=== PATIENT | male | born 1950 | race Caucasian/White ===

== ENCOUNTER 2017-09-03 11:32 | Inpatient (IN) | payer OTHER ==
[2017-09-03] VITALS (29 sets, daily range): BP systolic 44–127; BP diastolic 16–80; PULSE 54–105; TEMP 36.6–37.8; O2SAT 80–99; Ht 175.3 cm; Wt 107.6 kg
[~2017-09-03] VITALS: Ht 175.3 cm; Wt 107.6 kg
[2017-09-03] MEDS ORDERED: DILTIAZEM BOLUS / DRIP IV STA (13:25)
--- NOTE | 2017-09-03 13:30 | NUR ---
ID: Patient arrived to room 238-1. Patient on continuous bipap 16/, 45% with a rate of 20. Patient denies any SOB. Family at bedside. Dr. Wells at bedside with patient.
[2017-09-03] MEDS ORDERED: HEPARIN SOD 5000 UNIT/0.5 ML CARP SQ SCH (14:00)
[2017-09-03] MEDS ORDERED: PATIENT'S ALLERGY INFO NEEDS ENTERED SCH (14:00)
[2017-09-03] MEDS ORDERED: DILTIAZEM HCL INJ 125 MG in DEXTROSE 5% 100ML IV PRN (14:00)
[2017-09-03 14:19] LABS: BASO % 0.2 %; BASO ABS # 0.02 K/uL (0-0.2); EOS % 1.2 %; HEMATOCRIT 45.1 % (42-52); HEMOGLOBIN 13.8 g/dL (14.0-18.0); IG# 0.02 K/uL (0.00-0.02); LYMPH % 10.5 %; LYMPH ABS # 0.86 K/uL (1.2-3.4); MEAN CELL VOLUME 89.7 fL (80-100); MEAN CORPUSCULAR HEMOGLOBIN 27.4 pg (25-34); MEAN CORPUSCULAR HGB CONC 30.6 g/dl (32-36); MEAN PLATELET VOLUME 9.3 fL (7.4-10.4); MONO % 12.7 %; MONO ABS # 1.04 K/uL (0.11-0.59); NEUT % 75.2 %; NEUT ABS # 6.18 K/uL (1.4-6.5); PLATELET COUNT 197 K/uL (130-400); RED CELL DISTRIBUTION WIDTH CV 13.1 % (11.5-14.5); RED CELL DISTRIBUTION WIDTH SD 42.9 fL (36.4-46.3); WHITE BLOOD COUNT 8.22 K/uL (4.8-10.8)
[2017-09-03 14:27] LABS: PTT PATIENT 34.8 SECONDS (21.0-31.0)
--- NOTE | 2017-09-03 14:30 | NUR ---
A: Patient currently on 4L NC spo2 92%. Patient is sitting up in bed eating lunch. Will reapply bipap when patient is done eating.
[2017-09-03 14:37] LABS: ALBUMIN 2.9 gm/dl (3.4-5.0); CALCIUM 8.2 mg/dl (8.5-10.1); CREATININE 1.33 mg/dl (0.60-1.40); POTASSIUM 4.2 mmol/L (3.5-5.1)
[2017-09-03 14:48] LABS: TOTAL PROTEIN 6.2 gm/dl (6.4-8.2)
--- NOTE | 2017-09-03 15:05 | History and Physical ---
History & Physical Date & Time of Service: Sep 03, 2017 at 14:35 Chief Complaint: Atrial Flutter, Acute Hypoxic Respiratory Failure Primary Care Physician: Edward Tyler D.O. History of Present Illness Source: patient, family This patient is a 67-year-old male with a history of hypertension, obesity, polycythemia, who presents as a direct transfer from [facility] with new onset atrial flutter with RVR, acute on likely chronic hypercapnic and hypoxemic respiratory failure, and newly diagnosed systolic CHF. He reports he went to his PCP for his annual physical yesterday morning and his doctor noted a rapid heartbeat and called an ambulance for him. He was feeling weak at the time, but denied palpitations, lightheadedness, or chest pain. Upon arrival at [facility], he was in rapid atrial flutter with a 2-1 block and a heart rate of 145 bpm. He was bolused with IV Cardizem and placed on a Cardizem drip. He eventually spontaneously converted to normal sinus rhythm in which he remains. He recently had his outpatient dose of metoprolol lowered to 25 mg by mouth twice a day, therefore he was increased again to 50 mg by mouth twice a day upon admission. His echo showed an EF of 45%, with some global hypokinesis, but was otherwise normal. His initial chest x-ray was read as normal, but a repeat chest x-ray this morning showed developing signs of pulmonary vascular congestion and was consistent with acute CHF. He denies any significant weight gain, no worsening peripheral edema over his usual leg swelling. He remained hypoxic requiring 4 L nasal cannula. An ABG was obtained which showed pH 7.26/PA CO2 86/PaO2 40. He was placed on BiPAP this morning, and repeat ABG was almost exactly the same , except his PaO2 had increased to 70. He is a previous smoker, he is obese, and has a thick neck. There is suspicion for undiagnosed REMBERTO. He is also a previous heavy smoker and continues to smoke 1 cigarette a day-he also may have undiagnosed COPD. He was given 1 dose of Lasix IV 40 mg 1 and a Werner catheter was placed prior to transfer to [facility]. His family reports to me that the patient is not quite acting like himself and seems a little bit off which is likely due to his hypercapnia. Patient has no other complaints at this time. He was transferred here due to family request as his son and [id number] both work here. Past Medical/Surgical History PMH: Hypertension Polycythemia-has had several phlebotomies-does not know if he has been tested for hemochromatosis Obesity Current smoker Bursitis Osteoarthritis PSH: None Medications at home: Lisinopril 20 mg by mouth daily Hydrocodone as a 12.5 mg by mouth daily Metoprolol 25 mg by mouth twice a day Aspirin 81 mg by mouth daily Fish oil Family History Mom of an SD old age Dad in old age Brother with colon cancer Sister with ovarian cancer- Grandson with iron overload which has now resolved Social History Smoking Status: Current Every Day Smoker (1 cigarette per day, previously smoked less than one pack per day 15 years, quit at age 52) Alcohol Use: admits to being a binge drinker, will drink 6 beers or wine times per week, but currently has not had any alcohol in 4 weeks Drug Use: none Allergies Coded Allergies: Maple Tree (Verified Allergy, Unknown, unknown, 09/03/17) Review of Systems Constitutional: No fever, No chills Eyes: + discharge (a few weeks ago he had bilateral conjunctivitis which is now resolved), No problem reported ENT: No problem reported Respiratory: No shortness of breath Cardiovascular: No chest pain, No palpitations Abdomen: No pain, No nausea, No vomiting, No GI bleeding Musculoskeletal: + joint pain (aches and pains diffusely chronically) Genitourinary - Male: No problem reported Neurologic: No problem reported Psychiatric: No problem reported Endocrine: No problem reported Hematologic / Lymphatic: + problem reported (has been told he had iron overload ) Integumentary: No problem reported Allergic / Immunologic: No problem reported Physical Exam Vital Signs Date Time Temp Pulse Resp B/P (MAP) Pulse Ox O2 Delivery O2 Flow Rate FiO2 09/03/17 13:46 36.6 73 20 116/68 95 BiPAP 45 09/03/17 13:30 36.6 73 20 116/68 (84) 95 BiPAP 45 General Appearance: WD/WN, no apparent distress, + obese Head: normocephalic, atraumatic Eyes: normal inspection, PERRL, EOMI, sclerae normal ENT: hearing grossly normal, + pertinent finding (large tongue, airway patent, very obese and short, thick neck) Neck: supple, no adenopathy, no carotid bruits, trachea midline, + pertinent finding (cannot assess for JVD due to obesity) Respiratory/Chest: no respiratory distress, no accessory muscle use, + decreased breath sounds (diminished throughout, no wheezes or crackles) Cardiovascular: regular rate, rhythm (with occasional ectopy), no murmur, normal peripheral pulses, + pertinent finding (1+ pitting edema the legs to the knees bilaterally) Abdomen/GI: normal bowel sounds, non tender, soft (and obese), no organomegaly , no pulsatile mass Genitourinary - Male: + pertinent finding (Werner catheter in place draining clear yellow urine) Back: normal inspection Extremities/Musculoskelatal: no calf tenderness, + swelling (as above) Neurologic/Psych: no motor/sensory deficits, alert, normal mood/affect, oriented x 3 Skin: normal color, warm/dry, no rash Lymphatic: no adenopathy Diagnostics Laboratory Results Results Past 24 Hours Test 09/03/17 14:04 Range/Units White Blood Count 8.22 4.8-10.8 K/uL Red Blood Count 5.03 4.7-6.1 M/uL Hemoglobin 13.8 14.0-18.0 g/dL Hematocrit 45.1 42-52 % Mean Corpuscular Volume 89.7 80-100 fL Mean Corpuscular Hemoglobin 27.4 25-34 pg Mean Corpuscular Hemoglobin Concent 30.6 32-36 g/dl Platelet Count 197 130-400 K/uL Mean Platelet Volume 9.3 7.4-10.4 fL Neutrophils (%) (Auto) 75.2 % Lymphocytes (%) (Auto) 10.5 % Monocytes (%) (Auto) 12.7 % Eosinophils (%) (Auto) 1.2 % Basophils (%) (Auto) 0.2 % Neutrophils # (Auto) 6.18 1.4-6.5 K/uL Lymphocytes # (Auto) 0.86 1.2-3.4 K/uL Monocytes # (Auto) 1.04 0.11-0.59 K/uL Eosinophils # (Auto) 0.10 0-0.5 K/uL Basophils # (Auto) 0.02 0-0.2 K/uL RDW Standard Deviation 42.9 36.4-46.3 fL RDW Coefficient of Variation 13.1 11.5-14.5 % Immature Granulocyte % (Auto) 0.2 % Immature Granulocyte # (Auto) 0.02 0.00-0.02 K/uL Prothrombin Time 10.9 9.0-12.0 SECONDS Prothromb Time International Ratio 1.0 0.9-1.1 Activated Partial Thromboplast Time 34.8 21.0-31.0 SECONDS Partial Thromboplastin Ratio 1.3 Diagnostic Radiology Chest x-ray report reviewed from outside hospital-shows only vascular congestion Echo report from outside hospital reviewed and shows EF 45% with global hypokinesis EKG ECG done here shows atrial fib, rate 60s, no ischemic changes ECGs from previous facility were not sent over Impression Assessment and Plan This patient is a 67-year-old male with a history of hypertension, obesity, polycythemia, who presents as a direct transfer from [facility] with new onset atrial flutter with RVR, acute on likely chronic hypercapnic and hypoxemic respiratory failure, and newly diagnosed systolic CHF. He reports he went to his PCP for his annual physical yesterday morning and his doctor noted a rapid heartbeat and called an ambulance for him. He was feeling weak at the time, but denied palpitations, lightheadedness, or chest pain. Upon arrival at [facility], he was in rapid atrial flutter with a 2-1 block and a heart rate of 145 bpm. He was bolused with IV Cardizem and placed on a Cardizem drip. He eventually spontaneously converted to normal sinus rhythm in which he remains. He recently had his outpatient dose of metoprolol lowered to 25 mg by mouth twice a day, therefore he was increased again to 50 mg by mouth twice a day upon admission. His echo showed an EF of 45%, with some global hypokinesis, but was otherwise normal. His initial chest x-ray was read as normal, but a repeat chest x-ray this morning showed developing signs of pulmonary vascular congestion and was consistent with acute CHF. He denies any significant weight gain, no worsening peripheral edema over his usual leg swelling. He remained hypoxic requiring 4 L nasal cannula. An ABG was obtained which showed pH 7.26/PA CO2 86/PaO2 40. He was placed on BiPAP this morning, and repeat ABG was almost exactly the same , except his PaO2 had increased to 70. He is a previous smoker, he is obese, and has a thick neck. There is suspicion for undiagnosed REMBERTO. He is also a previous heavy smoker and continues to smoke 1 cigarette a day-he also may have undiagnosed COPD. He was given 1 dose of Lasix IV 40 mg 1 and a Werner catheter was placed prior to transfer to [facility]. His family reports to me that the patient is not quite acting like himself and seems a little bit off which is likely due to his hypercapnia. Patient has no other complaints at this time. He was transferred here due to family request as his son and [id number] both work here. New-onset atrial flutter with RVR-spontaneously converted into normal sinus rhythm after placed on IV Cardizem drip at [facility].Now back in rate controlled A-fib -Admit to telemetry unit -Wean off Cardizem drip now that he is on increased dose of by mouth metoprolol , dose given this morning prior to transfer -Continue metoprolol tartrate 50 mg by mouth twice a day -Consult cardiology for further recommendations -Continue full dose anticoagulation with Lovenox 1 make per cake subcutaneous every 12 for now, will need to go on either Coumadin or NOAC-we'll discuss with patient -Treatment of suspected REMBERTO as below Acute on likely chronic hypercapnic and hypoxemic respiratory failure/suspect undiagnosed COPD and REMBERTO/current smoker. Repeat ABG after being on BiPAP for 2 hours is not changed much except increase PaO2. -Continue BiPAP for now, repeat ABG stat -We'll definitely need BiPAP at nighttime and we'll get overnight oximetry with ABG the following morning within 48 hours and discharged on 500 for home BiPAP -Consult pulmonology as per family request-we'll definitely need follow-up with sleep medicine as an outpatient as well as formal PFTs -We'll order nebulizers for decreased breath sounds and hypoxemia -Counseled on smoking cessation HTN/Acute newly diagnosed systolic CHF-could be rate related to tachyarrhythmia , did have recent viral illness, could be viral cardiomyopathy, could be ischemic. He had a normal stress test greater than 5 years ago, but certainly has risk factors for CAD. ECHO with LVEF 45% at outside facility with global hypokinesis. Serial troponins negative at outside facility -Continue lisinopril, metoprolol at increased dose of 50 mg twice a day, continue aspirin -Was given Lasix 40 g IV 1 this morning-we'll reassess in the morning if he needs more -Follow PRP for renal function and electrolytes -Consult cardiology for further evaluation and recommendations-he may need an ischemic evaluation in the future Polycythemia-hemoglobin is 15 at outside hospital, has received multiple phlebotomies in the past, unclear etiology but could be secondary to smoking -Follow CBC Prophylaxis-Lovenox Disposition-to home when medically stable Full code but does not desire prolonged life support if prognosis is very poor Advanced Directives Existing Living Will: Yes Existing Power of Administrative Resources Associate: No Resuscitation Status FULL RESUSCITATION VTE Prophylaxis VTE Risk Assessment Done? Y/N: Yes Risk Level: Moderate Given or contraindicated: Enoxaparin (Lovenox)SQ Additional Copies To Edward Tyler D.O.
[2017-09-03] MEDS ORDERED: MAGNESIUM SULFATE 1GM / D5W 1 GM in PREMIXED IN D5W 100 ML IV ONE (15:15)
[2017-09-03] MEDS ORDERED: NURSING VERBAL MED ORDER ONE ×2 (15:30→19:00)
[2017-09-03] MEDS ORDERED: SODIUM CHLORIDE 0.9% 250ML 250 ML IV ONE (16:00)
[2017-09-03] MEDS ORDERED: GLUCOSE 40% GEL 15 GM TUBE PO PRN (16:30)
[2017-09-03] MEDS ORDERED: GLUCAGON FOR INJ 1 MG VIAL SQ PRN (16:30)
[2017-09-03] MEDS ORDERED: GLUCOSE 10 TABS/TUBE PO PRN (16:30)
[2017-09-03] MEDS ORDERED: ICU PROTOCOL FOR HYPERGLYCEMIA PRN (16:30)
[2017-09-03] MEDS ORDERED: DEXTROSE 50% 50 ML SYR IV PRN (16:30)
[2017-09-03] MEDS ORDERED: DOBUTamine / D5W 500 MG IV PRN (16:45)
[2017-09-03] MEDS ORDERED: OMEG10007 PO (16:49)
[2017-09-03] MEDS ORDERED: METO25TA56 PO (16:50)
[2017-09-03] MEDS ORDERED: CYAN500T13 PO (16:52)
[2017-09-03] MEDS ORDERED: ASPI81TA28 PO (16:52)
[2017-09-03] MEDS ORDERED: GARL1CAP PO (16:53)
[2017-09-03] MEDS ORDERED: LISI-725 PO (16:55)
[2017-09-03] MEDS ORDERED: HYDR12.55 PO (16:55)
--- NOTE | 2017-09-03 17:16 | Cardiology Consultation ---
Cardiology Consultation Date of Consultation: Sep 03, 2017. Requesting Physician: Dr. Wells Reason for Consultation: Atrial fibrillation, hypotension Pt evaluation today including: conversation w/ patient, conversation w/ family , physical exam, lab review, review of studies, review of inpatient medication list, conversation w/ attending History of Present Illness This is a 67-year-old gentleman who was transferred here today for treatment of newly diagnosed atrial fibrillation and hypoxia. He had evidently gone to his physician's office for a routine visit on 09/02/2017, was noted to have a rapid heart rate and was sent to the hospital. He was observed to be in atrial flutter with 2-1 AV conduction, he is treated with intravenous diltiazem and subsequently spontaneously converted to sinus rhythm. He had been on metoprolol 25 mg twice a day as an outpatient, this was increased to 50 mg twice a day on admission. He was subsequently transferred here for treatment. At the time of my evaluation he had been here for several hours, and although he came in sinus rhythm he had reverted to atrial fibrillation with a controlled heart rate. His blood pressure was somewhat low however he was conversational and he was on CPAP. He describes feeling symptoms of shortness of breath for several months, going to routine physicians office visit in being hospitalized because he was in atrial fibrillation. He was unaware of having atrial fibrillation, but he recalls having symptoms similar to it (which is a fluttering in his chest) in the past, although he is little bit vague about the duration. It sounds as though it was probably about 3 months, but intermittently. He is not very active but the only thing he noticed was he would get short of breath with activities for several months and that may have been progressive. He does not recall having peripheral edema, he does not have exertional chest discomfort. He is feeling a little bit lightheaded now (blood pressure is around 70 systolic) but he doesn't feel particularly bad and he doesn't feel a lot different than he did several hours ago. He is not having any chest discomfort now. He does not seem to have orthopnea or PND. Past Medical/Surgical History Atrial flutter Obesity Social History Smoking Status: Current Every Day Smoker (1 cigarette per day, previously smoked less than one pack per day 15 years, quit at age 52) History of Alcohol Use: Yes Review of Systems Constitutional: No fever, No weight loss, No weakness Respiratory: + shortness of breath, + dyspnea on exertion, No cough, No wheezing Cardiac: + palpitations, No chest pain, No orthopnea, No PND, No edema Abdomen: No pain, No nausea, No vomiting, No diarrhea, No GI bleeding Male : No urinary frequency, No nocturia more than once/night, No slowing stream, No sexual dysfunction Neurologic: No paralysis, No weakness, No numbness/tingling, No balance problems Heme: No abnormal bleeding/bruising, No clotting problems Endo: No fatigue Skin: No problem reported All Other Systems: Reviewed and Negative Allergies Coded Allergies: Maple Tree (Verified Allergy, Unknown, unknown, 09/03/17) Medications Current Inpatient Medications Medications (Trade) Dose Ordered Sig/Krissy Route Start Time Stop Time Status Last Admin Dose Admin Acetaminophen (Tylenol Tab) 650 mg Q4H PRN PO 09/03/17 13:30 10/03/17 13:29 Aspirin (Ecotrin Tab) 81 mg QAM PO 09/04/17 09:00 10/04/17 08:59 Levalbuterol (Xopenex 0.63 Mg/ 3 Ml Neb) 0.63 mg Q6R INH 09/03/17 15:00 10/03/17 14:59 Enoxaparin Sodium (Lovenox Inj) 111 mg Q12 SQ 09/03/17 21:00 10/03/17 20:59 Miscellaneous Information (Icu Protocol For Hyperglycemia) 1 ea PRN PRN N/A 09/03/17 16:30 09/05/17 16:29 Insulin Human Regular (novoLIN-R) SLIDING SCALE IF C... ACHS SC 09/03/17 21:00 10/03/17 20:59 Glucose (Glucose 40% Gel) 15-30 GRAMS 15 GRAMS... UD PRN PO 09/03/17 16:30 10/03/17 16:29 Glucose (Glucose Chew Tab) 4-8 Tablets 4 Tabl... UD PRN PO 09/03/17 16:30 10/03/17 16:29 Dextrose (Dextrose 50% 50ML Syringe) 25-50ML OF 50% DW IV FOR... UD PRN IV 09/03/17 16:30 10/03/17 16:29 Glucagon (Glucagon Inj) 1 mg UD PRN SQ 09/03/17 16:30 10/03/17 16:29 Heparin Sodium/ Dextrose 1 ea Q15M N/A 09/03/17 16:42 10/03/17 16:41 Dobutamine HCl 250 ml @ 0 mls/hr Q0M PRN IV 09/03/17 16:45 10/03/17 16:44 Physical Exam Vital Signs Past 12 Hours Date Time Temp Pulse Resp B/P (MAP) Pulse Ox O2 Delivery O2 Flow Rate FiO2 09/03/17 16:00 96 BiPAP 09/03/17 15:59 78/48 (58) 09/03/17 15:39 57 69/45 (53) 09/03/17 15:21 37.0 73 20 77/53 (61) 98 BiPAP 09/03/17 13:46 36.6 73 20 116/68 95 BiPAP 45 09/03/17 13:30 36.6 73 20 116/68 (84) 95 BiPAP 45 Constitutional: General Apperance: obese Level of Distress: moderate distress, acutely ill Psychiatric: Mental Status: active & alert Head: normocephalic Eyes: EOM: EOMI ENMT: normal ENT inspection, hearing grossly normal, pertinent finding (he is currently wearing CPAP) Neck: supple, no masses Lungs: Respiratory effort: good air movement Auscultation: no wheezing, no rales/crackles, deminished air movement Cardiovascular: Heart Auscultation: no murmurs, no rubs, no gallops, irregular rate rhythm Peripheral Pulses: Bruits: none appreciated Abdomen: Bowel Sounds: normal Inspection & Palpation: soft, no tenderness, guarding & rebound, no masses Musculoskeletal: normal strength (5/5 throughout) Extremities: no edema Neurologic: Cranial Nerves: grossly intact Sensation: grossly intact Data Laboratory Results: Last 24 Hours Test 09/03/17 14:04 09/03/17 16:27 09/03/17 16:33 White Blood Count 8.22 K/uL Red Blood Count 5.03 M/uL Hemoglobin 13.8 g/dL Hematocrit 45.1 % Mean Corpuscular Volume 89.7 fL Mean Corpuscular Hemoglobin 27.4 pg Mean Corpuscular Hemoglobin Concent 30.6 g/dl Platelet Count 197 K/uL Mean Platelet Volume 9.3 fL Neutrophils (%) (Auto) 75.2 % Lymphocytes (%) (Auto) 10.5 % Monocytes (%) (Auto) 12.7 % Eosinophils (%) (Auto) 1.2 % Basophils (%) (Auto) 0.2 % Neutrophils # (Auto) 6.18 K/uL Lymphocytes # (Auto) 0.86 K/uL Monocytes # (Auto) 1.04 K/uL Eosinophils # (Auto) 0.10 K/uL Basophils # (Auto) 0.02 K/uL RDW Standard Deviation 42.9 fL RDW Coefficient of Variation 13.1 % Immature Granulocyte % (Auto) 0.2 % Immature Granulocyte # (Auto) 0.02 K/uL Prothrombin Time 10.9 SECONDS Prothromb Time International Ratio 1.0 Activated Partial Thromboplast Time 34.8 SECONDS Partial Thromboplastin Ratio 1.3 Arterial Blood pH 7.31 Arterial Blood Partial Pressure CO2 73 mmHg Arterial Blood Partial Pressure O2 46 mm/Hg Arterial Blood HCO3 36 mmol/L Arterial Blood Oxygen Saturation 80.5 % Arterial Blood Base Excess 7.3 mEq/L Arterial Blood Gas Delivery 45% William Test POS Sodium Level 134 mmol/L Potassium Level 4.2 mmol/L Chloride Level 96 mmol/L Carbon Dioxide Level 36 mmol/L Anion Gap 3.0 mmol/L Blood Urea Nitrogen 22 mg/dl Creatinine 1.33 mg/dl Est Creatinine Clear Calc Drug Dose 65.4 ml/min Estimated GFR () 63.2 Estimated GFR (Non- 54.5 BUN/Creatinine Ratio 16.7 Random Glucose 108 mg/dl Calcium Level 8.2 mg/dl Magnesium Level 1.9 mg/dl Total Bilirubin 0.5 mg/dl Direct Bilirubin 0.2 mg/dl Aspartate Amino Transf (AST/SGOT) 21 U/L Alanine Aminotransferase (ALT/SGPT) 38 U/L Alkaline Phosphatase 62 U/L Troponin I 0.027 ng/ml Total Protein 6.2 gm/dl Albumin 2.9 gm/dl Thyroid Stimulating Hormone (TSH) 0.909 uIu/ml Imaging: An echocardiogram was done at the bedside and preliminary review shows a slightly low left ventricular ejection fraction, signs of an enlarged right heart and right ventricular pressure overload although exact pressures can't be evaluated. No pericardial effusion. EKG: His first electrocardiogram done on 09/03/2017 at 1415 shows atrial fibrillation with a controlled heart rate of 88 bpm and a rightward axis. No acute changes. A follow-up electrocardiogram done on 09/03/2017 at 1536 shows atrial fibrillation with a heart rate of 59 bpm and a rightward axis. There are no prior electrical cardiograms for comparison. Telemetry reviewed: Sinus rhythm until converting to atrial fibrillation this afternoon, where little change in heart rate. Assessment & Plan #1. Atrial fibrillation: He has recently diagnosed atrial fibrillation, although I don't think that is his primary problem at the moment. He may have a long history of it or maybe more recent, that remains to be seen. Right now his heart rate is well controlled on medications that were given before he arrived here and I would certainly not add any rate controlling medications. If anything his heart rate is little bit on the low side. If pressors are used that will increase his heart rate which may be beneficial. It is not low enough to consider temporary pacing. #2. Left ventricular dysfunction: He does seem to have some left ventricular dysfunction although it is not severe and he does not seem to have an acute coronary syndrome. It may be related to atrial fibrillation which may be longer standing than he realizes. At the moment I don't think this is a major part of his presentation and I don't believe he has severe left heart failure or pulmonary edema. Chest x-ray is pending. #3. Enlarged right heart: He may have pulmonary embolism, I believe a CAT scan will be done. He is on anticoagulation with Lovenox. We will follow along with you. Thank you for allowing me to participate in his care.
--- NOTE | 2017-09-03 17:21 | ECHOCARDIOGRAM REPORT ---
*NOTICE TO RECEIVING DEMOCRAT AGENCY This information is strictly Confidential and protected under [place] law. [place] law prohibits you from making any further disclosure of this information unless further disclosure is expressly permitted by the written consent of the person to whom it pertains or is authorized by law. A general authorization for the release of medical or other information is not sufficient for this purpose. Hospital accepts no responsibility if the information is made available to any other person, INCLUDING THE PATIENT. Interpretation Summary * Name: STEVE BAUTISTA Study Date: 09/03/2017 04:18 PM BP: 78/48 mmHg * Patient Location: C.2T\S\S238\S\1 HR: 65 * : 1950 (M/d/yy) Gender: Male Height: 69 in * Age: 67 yrs Ethnicity: RI Weight: 245 lb * Ordering Physician: Arvind Burrows * Referring Physician: UNKNOWN * Performed By: Giancarlo Laura RCS * * Reason For Study: A-FIB / HYPOTENSION * BSA: 2.3 m2 * -- Conclusions -- * Normal LV chamber size with moderate concentric LVH. * Mildly reduced LV systolic function with D shaped septum and flattened septal motion consistent with RV pressure/volume overload, EF 45-50%. * Severely dilated RV chamber size with severely reduced RV systolic function. * Akinesis of the RV free wall with preserved funciton of RV apical wall motion. * No significant valvular pathology. * TR jet inadequate to accurately calculate PASP. * Mild biatrial enlargement. Procedure Details * A complete two-dimensional transthoracic echocardiogram was performed (2D, M-mode, Doppler and color flow Doppler). * The study was technically difficult. * A contrast injection of Definity was performed to improve assessment of LV function. * Contrast was injected into an intravenous site in the left arm. * One vial of Definity ultrasound contrast was diluted in normal saline to a total volume of 10 ml. A total of '1' ml of solution was administered during imaging. * Lot # [id number] of Definity utilized for procedure. * Expiration date 1 NOV 03. * The attending nurse who injected the contrast agent was INGA FLORENCE RN. Left Ventricle * The left ventricle is normal in size. * There is moderate concentric left ventricular hypertrophy. * Left ventricular systolic function is mildly reduced. * Ejection Fraction = 45-50%. * Flattened septum is consistent with RV pressure/volume overload. Right Ventricle * The right ventricle is severely dilated. * The right ventricular systolic function is severely reduced. Atria * The left atrium is mildly dilated. * The right atrium is mildly dilated. * No ASD detected; PFO is not assessed. Mitral Valve * The mitral valve is normal in structure and function. Tricuspid Valve * The tricuspid valve is normal in structure and function. Aortic Valve * The aortic valve is not well visualized. * No hemodynamically significant valvular aortic stenosis. * There is no significant aortic regurgitation. Pulmonic Valve * The pulmonary valve is not well seen, but the Doppler examination is normal without significant regurgitation or stenosis. Great Vessels * The aortic root is normal size. Pericardium/Pleural * There is no pericardial effusion. * Prominent anterior pericardial fat pad. Right Ventricle * Akinesis of the RV free wall with preserved funciton of RV apical wall motion. Great Vessels * Normal inferior vena cava size and collapsability with sniff indicates a normal right atrial pressure of 3 mmHg MMode 2D Measurements and Calculations IVSd 1.8 cm IVSs 2.2 cm LVIDd 4.1 cm LVIDs 2.8 cm LVPWd 1.5 cm LVPWs 1.5 cm IVS/LVPW 1.2 FS 33.4 % EDV(Teich) 75.8 ml ESV(Teich) 28.4 ml EF(Teich) 62.6 % EDV(cubed) 70.7 ml ESV(cubed) 20.9 ml EF(cubed) 70.5 % % IVS thick 24.3 % % LVPW thick 4.3 % LV mass(C)d 280.0 grams LV mass(C)dI 124.4 grams/m\S\2 LV mass(C)s 214.7 grams LV mass(C)sI 95.4 grams/m\S\2 SV(Teich) 47.4 ml SI(Teich) 21.1 ml/m\S\2 SV(cubed) 49.9 ml SI(cubed) 22.1 ml/m\S\2 Ao root diam 3.3 cm Ao root area 8.4 cm\S\2 ACS 1.7 cm LA dimension 4.2 cm LA/Ao 1.3 LVOT diam 2.0 cm LVOT area 3.3 cm\S\2 LVAd ap4 36.5 cm\S\2 LVLd ap4 8.2 cm EDV(MOD-sp4) 140.7 ml EDV(sp4-el) 138.2 ml LVAs ap4 23.3 cm\S\2 LVLs ap4 7.0 cm ESV(MOD-sp4) 70.0 ml ESV(sp4-el) 66.4 ml EF(MOD-sp4) 50.3 % EF(sp4-el) 52.0 % LVAd ap2 49.5 cm\S\2 LVLd ap2 10.0 cm EDV(MOD-sp2) 203.0 ml EDV(sp2-el) 208.1 ml LVAs ap2 34.9 cm\S\2 LVLs ap2 8.8 cm ESV(MOD-sp2) 114.6 ml ESV(sp2-el) 117.3 ml EF(MOD-sp2) 43.5 % EF(sp2-el) 43.7 % LVLd %diff 18.3 % EDV(MOD-bp) 185.5 ml LVLs %diff 20.8 % ESV(MOD-bp) 99.7 ml EF(MOD-bp) 46.3 % SV(MOD-sp4) 70.8 ml SI(MOD-sp4) 31.4 ml/m\S\2 SV(MOD-sp2) 88.4 ml SI(MOD-sp2) 39.2 ml/m\S\2 SV(MOD-bp) 85.8 ml SI(MOD-bp) 38.1 ml/m\S\2 SV(sp4-el) 71.8 ml SI(sp4-el) 31.9 ml/m\S\2 SV(sp2-el) 90.9 ml SI(sp2-el) 40.3 ml/m\S\2 Doppler Measurements and Calculations MV E max lakesha 100.1 cm/sec MV P1/2t max lakesha 109.5 cm/sec MV P1/2t 93.6 msec MVA(P1/2t) 2.4 cm\S\2 MV dec slope 342.7 cm/sec\S\2 MV dec time 0.27 sec Ao V2 max 107.5 cm/sec Ao max PG 4.6 mmHg Ao max PG (full) 2.5 mmHg JOSIE(V,A) 2.2 cm\S\2 JOSIE(V,D) 2.2 cm\S\2 LV V1 max PG 2.1 mmHg LV V1 max 72.9 cm/sec PA V2 max 93.2 cm/sec PA max PG 3.5 mmHg TR max lakesha 239.2 cm/sec
[2017-09-03] MEDS ORDERED: OPTIRAY 320 IV PRN (17:30)
--- NOTE | 2017-09-03 17:30 | NUR ---
Patient transferred to room 103. quality assurance monitor applied - NSR. vss - see emr. had bowel movement - no diarrhea. oriented to person, place, time, situation, and event. afebrile. lungs clear/diminished on 4L NC. pina cath intact patent with concentrated yellow urine out put. dobutamine and heparin on hold for now per dr. jasmine. bed in lowest position call vanessa within reach. will continue to monitor.
--- NOTE | 2017-09-03 17:34 | DIAGNOSTIC IMAGING REPORT ---
(CHEST FOR PE) ANGIO WITH CLINICAL HISTORY: 67 years-old Male presenting with ^hypoxia. TECHNIQUE: Multidetector CT angiography of the chest was performed after administration of intravenous contrast. 3-D volumetric and/or maximum intensity projection (MIP) images were subsequently reconstructed for review. IV contrast: 115 mL of Optiray. A dose lowering technique was used consistent with the principles of ALARA (as low as reasonably achievable). COMPARISON: None. CT DOSE (mGy.cm): The estimated cumulative dose is 767.13 mGy.cm. FINDINGS: Cras topogram: Cardiac megaly Pulmonary vasculature: The study is adequate for assessment of the pulmonary vascular tree. No filling defect within the pulmonary arteries to suggest embolus. Poor opacification of subsegmental branches of the bilateral lower lobes felt to be incomplete opacification related to the timing of contrast. Main pulmonary artery is enlarged measuring 3.2 cm in transverse dimension. No flattening of the interventricular septum. No intracardiac intracardiac filling defect. Reflux of contrast into the hepatic veins suggesting elevated right heart pressure. Remaining chest: On soft tissue windows, few thyroid nodules may be present. Subcentimeter hilar and mediastinal lymph nodes possibly reactive. Atherosclerosis of the aorta. Coronary artery calcification. Top normal heart size. No pericardial effusion. Small right and trace left pleural effusions. Upper abdomen normal. On lung windows, dependent consolidation in the bilateral lower lobes, likely passive atelectasis. Mild bronchial wall thickening may be present. Few additional bandlike opacities likely atelectasis. Questionable trace emphysema at the apices. No other focal infiltrate. Large airways patent. On bone windows, degenerative changes of the spine. IMPRESSION: 1. No evidence of pulmonary embolus. 2. Enlargement of the main pulmonary artery and reflux of contrast into the hepatic veins suggests pulmonary hypertension and elevated right heart pressure. 3. Small right and trace left pleural effusions with suspected extensive passive atelectasis in the lower lobes. Electronically signed by: London Worthy M.D. 09/03/2017 5:33 PM Dictated Date/Time: 09/03/2017 5:24 PM
[2017-09-03] MEDS ORDERED: MILRINONE / D5W 20,000 MCG in PREMIXED IN D5W 100 ML IV PRN (18:07)
[2017-09-03] MEDS ORDERED: PHENYLEPHRINE HCL INJ 20 MG in DEXTROSE 5% 500ML 500 ML IV PRN (18:10)
[2017-09-03] MEDS ORDERED: HEPARIN 25,000 UNIT/500ML D5W 500 ML IV PRN (18:15)
--- NOTE | 2017-09-03 18:15 | NUR ---
patient taken to organic lab worker by organic lab worker team
--- NOTE | 2017-09-03 19:25 | NUR ---
Patient arrived to ICU 109 on monitor, accompanied by denture laboratory technician staff at this time. Patient was hooked up to bedside monitors and monitoring started. Vitals take. Height and weight taken and entered into bedside monitor for PA and CVP monitoring. Initial assessment completed and will be charted. See EMR for complete assessment and vital sign details. Patient placed on BiPAP 16/6 FIO2 50%. Bed in low position. 2 side rails up. Call vanessa within reach. Patient agrees to ring for assistance. Continue to monitor patient.
--- NOTE | 2017-09-03 19:30 | NUR ---
Sunita Soriano PA-C aware of Cardiac Output, Cardiac Index, SV, PA, and CVP pressures.
--- NOTE | 2017-09-03 19:55 | Critical Care Consultation ---
Critical Care Consultation Date of Consultation: Sep 03, 2017. Attending Physician: Sarah Wells MD Reason for Consultation: Pulmonary Htn with New Atrial Fibrillation History of Present Illness Alvarez Schreiber is a 67-year-old male who presented today as a direct transfer from [facility] where he had been diagnosed with the new onset atrial flutter with RVR with systolic CHF with acute on chronic hypercapnic and hypoxemic respiratory failure. Pt was seen by PCP on 09/02 and EKG revealed rapid irregular heart rate at which time an ambulance was called and pt was transported to [facility]. EKG [facility] demonstrated a rate 145 bpm with a 2-1 block, treated with IV Cardizem followed by infusion with spontaneous conversion to normal sinus rhythm. She does note recent change to metoprolol dosing. Patient underwent echo with an EF of 45% and global hypokinesis. Chest x-ray this morning demonstrated developing signs of vascular congestion. Patient remained on 4 L nasal cannula. Was treated with 1 dose of 40 mg of IV Lasix. ABG prior to transfer to [facility] demonstrated pH of 7.26 CO of 86 paO2 40%. After patient was transferred to [address] [place] [address] he was noted to again refer to atrial fibrillation with hypotension. Systolics were in the mid 70s and patient was transferred to the intensive care unit. He was bolused with 250 mL of NSS an EKG prior to transfer confirmed atrial fibrillation without ischemic changes. Patient underwent chest CT to rule out PE. Dr. Funez cardiology saw the patient and performed a stat echo had demonstrated right-sided heart failure with an ejection fraction of 40-45%. Patient was taken by Dr. Funez to cardiac laborer drying department for placement of [place] Sofia catheter. Dr. Funez findings are as follows: Summary: 1. Elevated left sided filling pressures/HFpEF (PAWP 20) 2. Moderate pulmonary hypertension -- suspect mixed etiology left sided heart disease and lung disease/REMBERTO (WHO group 2/3). 3. Right sided heart failure (RA 19) 4. Mildly reduced cardiac output. Upon examination, pt is sleeping comfortably and is without chest pain. Amiodarone is infusing at [] and pt has been placed on low dose heparin drip. Pulmonary Artery pressures have been running 50's/20's. Pt is currently back in NSR with SBP of 129. The patient denies weight loss, fever, dizziness, headache, muscle weakness, numbness, change in vision, sore throat, chest pain, palpitations, awareness of tachyarrythmias, leg swelling, shortness of breath, cough, nausea, vomiting, bloody stools, diarrhea, constipation, abdominal pain, other changes in urine or bowel habits. Past Medical/Surgical History Medical Problems: Acute respiratory failure with hypoxia and hypercapnia Atrial flutter Hypertension Polycythemia-has had several phlebotomies-does not know if he has been tested for hemochromatosis Obesity Tobacco Abuse Bursitis Osteoarthritis Surgical History: Cardiac Catheterization to place [place] Sofia catheter Social History Smoking Status: Current Every Day Smoker Alcohol Use: admits to being a binge drinker, will drink 6 beers or wine times per week, but currently has not had any alcohol in 4 weeks Drug Use: none Allergies Coded Allergies: Maple Tree (Verified Allergy, Unknown, unknown, 09/03/17) Home Medications Scheduled Aspirin (Aspirin Ec), PO DAILY Cyanocobalamin (Vitamin B12 500MCG), 500 MCG PO DAILY Fish Oil ([place]-3), 1 CAP PO DAILY Garlic (Garlic Oil 500), PO DAILY Hydrochlorothiazide (Hydrochlorothiazide), 1 TAB PO DAILY Lisinopril (Zestril), 20 MG PO DAILY Metoprolol Tartrate (Lopressor) (Lopressor), 1 TAB PO BID Current Inpatient Medications Current Inpatient Medications Medications (Trade) Dose Ordered Sig/Krissy Route Start Time Stop Time Status Last Admin Dose Admin Acetaminophen (Tylenol Tab) 650 mg Q4H PRN PO 09/03/17 13:30 10/03/17 13:29 Aspirin (Ecotrin Tab) 81 mg QAM PO 09/04/17 09:00 10/04/17 08:59 Levalbuterol (Xopenex 0.63 Mg/ 3 Ml Neb) 0.63 mg Q6R INH 09/03/17 15:00 10/03/17 14:59 Miscellaneous Information (Icu Protocol For Hyperglycemia) 1 ea PRN PRN N/A 09/03/17 16:30 09/05/17 16:29 Insulin Human Regular (novoLIN-R) SLIDING SCALE IF C... ACHS SC 09/03/17 21:00 10/03/17 20:59 Glucose (Glucose 40% Gel) 15-30 GRAMS 15 GRAMS... UD PRN PO 09/03/17 16:30 10/03/17 16:29 Glucose (Glucose Chew Tab) 4-8 Tablets 4 Tabl... UD PRN PO 09/03/17 16:30 10/03/17 16:29 Dextrose (Dextrose 50% 50ML Syringe) 25-50ML OF 50% DW IV FOR... UD PRN IV 09/03/17 16:30 10/03/17 16:29 Glucagon (Glucagon Inj) 1 mg UD PRN SQ 09/03/17 16:30 10/03/17 16:29 Ioversol (Optiray 320) 100 ml UD PRN IV 09/03/17 17:30 09/07/17 17:29 Milrinone Lactate/ Dextrose 45611 mcg/Prmx 100 ml @ 0 mls/hr Q0M PRN IV 09/03/17 18:07 10/03/17 18:06 Phenylephrine HCl 20 mg/Dextrose 502 ml @ 0 mls/hr Q0M PRN IV 09/03/17 18:10 10/03/17 18:09 Review of Systems 12 systems reviewed and negative other than previously mentioned in the HPI. Physical Exam Date Time Temp Pulse Resp B/P (MAP) Pulse Ox O2 Delivery O2 Flow Rate FiO2 09/03/17 19:02 60 16 142/70 (94) 98 Mask 4 09/03/17 17:45 80 18 104/61 (75) 95 Oxymask 5.0 09/03/17 17:30 37.1 84 20 105/65 (78) 90 Nasal Cannula 4.0 09/03/17 16:00 96 BiPAP 09/03/17 15:59 78/48 (58) 09/03/17 15:39 57 69/45 (53) 09/03/17 15:21 37.0 73 20 77/53 (61) 98 BiPAP 09/03/17 13:46 36.6 73 20 116/68 95 BiPAP 45 09/03/17 13:30 36.6 73 20 116/68 (84) 95 BiPAP 45 Vital Signs - as noted Laboratory Data - as noted Physical Exam: General - Sleeping Eyes - PERRL, EOMI No icterus, gaze conjugate ENT - Bipap mask in place Neck - Supple, trachea midline, no masses or lymphadenopathy, no JVD or bruits Lungs - No paradoxical chest wall movement, clear to auscultation bilaterally, no wheezes, rales, or rhonchi Heart - Reg rate and rhythm, No murmur, rubs, clicks, or gallops appreciated Abdomen - normoactive BS present, no bruits noted, tympanic to percussion, soft , nontender, moderately distended,obese Extremities - No edema, pedal pulses intact Neuro - easily awakened but drowsy; falls back asleep quickly Strength extremities equal and appropriate bilaterally Reflexes: normal and equal CN:PERRL, EOMI, no facial asymmetry, uvula/tongue midline Laboratory Results Last 24 Hours Test 09/03/17 14:04 09/03/17 17:51 09/03/17 18:55 White Blood Count 8.22 K/uL Red Blood Count 5.03 M/uL Hemoglobin 13.8 g/dL Hematocrit 45.1 % Mean Corpuscular Volume 89.7 fL Mean Corpuscular Hemoglobin 27.4 pg Mean Corpuscular Hemoglobin Concent 30.6 g/dl Platelet Count 197 K/uL Mean Platelet Volume 9.3 fL Neutrophils (%) (Auto) 75.2 % Lymphocytes (%) (Auto) 10.5 % Monocytes (%) (Auto) 12.7 % Eosinophils (%) (Auto) 1.2 % Basophils (%) (Auto) 0.2 % Neutrophils # (Auto) 6.18 K/uL Lymphocytes # (Auto) 0.86 K/uL Monocytes # (Auto) 1.04 K/uL Eosinophils # (Auto) 0.10 K/uL Basophils # (Auto) 0.02 K/uL RDW Standard Deviation 42.9 fL RDW Coefficient of Variation 13.1 % Immature Granulocyte % (Auto) 0.2 % Immature Granulocyte # (Auto) 0.02 K/uL Prothrombin Time 10.9 SECONDS Prothromb Time International Ratio 1.0 Activated Partial Thromboplast Time 34.8 SECONDS Partial Thromboplastin Ratio 1.3 Arterial Blood pH 7.31 Arterial Blood Partial Pressure CO2 73 mmHg Arterial Blood Partial Pressure O2 46 mm/Hg Arterial Blood HCO3 36 mmol/L Arterial Blood Oxygen Saturation 80.5 % Arterial Blood Base Excess 7.3 mEq/L Arterial Blood Gas Delivery 45% William Test POS Sodium Level 134 mmol/L Potassium Level 4.2 mmol/L Chloride Level 96 mmol/L Carbon Dioxide Level 36 mmol/L Anion Gap 3.0 mmol/L Blood Urea Nitrogen 22 mg/dl Creatinine 1.33 mg/dl Est Creatinine Clear Calc Drug Dose 65.4 ml/min Estimated GFR () 63.2 Estimated GFR (Non- 54.5 BUN/Creatinine Ratio 16.7 Random Glucose 108 mg/dl Calcium Level 8.2 mg/dl Magnesium Level 1.9 mg/dl Total Bilirubin 0.5 mg/dl Direct Bilirubin 0.2 mg/dl Aspartate Amino Transf (AST/SGOT) 21 U/L Alanine Aminotransferase (ALT/SGPT) 38 U/L Alkaline Phosphatase 62 U/L Troponin I 0.027 ng/ml 0.032 ng/ml Total Protein 6.2 gm/dl Albumin 2.9 gm/dl Thyroid Stimulating Hormone (TSH) 0.909 uIu/ml Lactic Acid Level 1.0 mmol/L Pro-B-Type Natriuretic Peptide 1330 pg/ml Bedside Blood Gas pH (LAB) 7.24 Bedside Blood Gas pCO2 (LAB) 93 mmHg Bedside Blood Gas pO2 (LAB) 42 mmHg Bedside Blood Gas HCO3 (LAB) 40 meq/L Bedside Blood Gas Total CO2 > 40 mEq/l Bedside Blood Gas Base Excess (LAB) 12.0 meq/L Bedside Blood Gas O2 Saturation 65.0 % Diagnostic Results (CHEST FOR PE) ANGIO WITH CLINICAL HISTORY: 67 years-old Male presenting with ^hypoxia. TECHNIQUE: Multidetector CT angiography of the chest was performed after administration of intravenous contrast. 3-D volumetric and/or maximum intensity projection (MIP) images were subsequently reconstructed for review. IV contrast: 115 mL of Optiray. A dose lowering technique was used consistent with the principles of ALARA (as low as reasonably achievable). COMPARISON: None. CT DOSE (mGy.cm): The estimated cumulative dose is 767.13 mGy.cm. FINDINGS: Valve Liner Rubber topogram: Cardiac megaly Pulmonary vasculature: The study is adequate for assessment of the pulmonary vascular tree. No filling defect within the pulmonary arteries to suggest embolus. Poor opacification of subsegmental branches of the bilateral lower lobes felt to be incomplete opacification related to the timing of contrast. Main pulmonary artery is enlarged measuring 3.2 cm in transverse dimension. No flattening of the interventricular septum. No intracardiac intracardiac filling defect. Reflux of contrast into the hepatic veins suggesting elevated right heart pressure. Remaining chest: On soft tissue windows, few thyroid nodules may be present. Subcentimeter hilar and mediastinal lymph nodes possibly reactive. Atherosclerosis of the aorta. Coronary artery calcification. Top normal heart size. No pericardial effusion. Small right and trace left pleural effusions. Upper abdomen normal. On lung windows, dependent consolidation in the bilateral lower lobes, likely passive atelectasis. Mild bronchial wall thickening may be present. Few additional bandlike opacities likely atelectasis. Questionable trace emphysema at the apices. No other focal infiltrate. Large airways patent. On bone windows, degenerative changes of the spine. IMPRESSION: 1. No evidence of pulmonary embolus. 2. Enlargement of the main pulmonary artery and reflux of contrast into the hepatic veins suggests pulmonary hypertension and elevated right heart pressure. 3. Small right and trace left pleural effusions with suspected extensive passive atelectasis in the lower lobes. Electronically signed by: London Worthy M.D. 09/03/2017 5:33 PM Dictated Date/Time: 09/03/2017 5:24 PM VENOUS DOPPLER LWR EXT BILA CLINICAL HISTORY: 67 years-old Male presenting with hypoxia. TECHNIQUE: Real-time grayscale and color and spectral Doppler ultrasound imaging of the veins of the bilateral lower extremities was performed. Compression and augmentation were also utilized. COMPARISON: None. FINDINGS: Right: Common femoral vein: Patent. Greater saphenous vein: Patent. Deep femoral vein: Patent. Femoral vein: Patent. Popliteal vein: Patent. Calf veins: Patent. Left: Common femoral vein: Patent. Greater saphenous vein: Patent. Deep femoral vein: Patent. Femoral vein: Patent. Popliteal vein: Patent. Calf veins: Patent. Other: 3 cm hypoechoic mass centered in the superficial soft tissues of the proximal left lateral calf noted. No demonstrable internal vascularity on color Doppler. IMPRESSION: 1. No evidence of deep venous thrombosis. 2. Hypoechoic mass in the superficial soft tissues of the proximal left lateral calf. No demonstrable color Doppler flow. This could suggest an avascular collection such as a hematoma or a poorly vascularized lesion. Electronically signed by: London Worthy M.D. 09/03/2017 9:53 PM Dictated Date/Time: 09/03/2017 9:52 PM CHEST ONE VIEW PORTABLE CLINICAL HISTORY: 67 years-old Male presenting with Hypoxia, hypotension. TECHNIQUE: Portable upright AP view of the chest was obtained. COMPARISON: CTA performed earlier the same day. FINDINGS: Interval placement of a right internal jugular central venous catheter which terminates at the superior cavoatrial junction. Cardiac silhouette enlarged. Pulmonary vasculature enlarged. Lungs essentially clear. No large effusion or pneumothorax. Osseous structures normal. Upper abdomen normal. IMPRESSION: 1. Right IJ central venous catheter terminates at the superior cavoatrial junction. No pneumothorax. 2. Cardiomegaly with volume overload. Electronically signed by: London Worthy M.D. 09/03/2017 10:13 PM Dictated Date/Time: 09/03/2017 10:11 PM Assessment & Plan (1) Pulmonary hypertension (2) Atrial flutter (3) Acute respiratory failure with hypoxia and hypercapnia PLAN: Neuro: * Neuro checks per protocol * Tylenol as needed Resp: * Acute on chronic hypercapnic hypoxemic respiratory failure * Bipap at this time 28/01 * Pulmonary Consult placed: Pulmonary HTN (Mixed Group 2/3) * Diuresis as tolerated, Avoid A. Fib * [place] Sofia Catheter in place monitoring cardiac/pulmonary pressures * Possible REMBERTO: continue BiPap overnight * Sleep medicine on D/C CV: * New Onset A. Fib/flutter with RVR and hypotension * Amiodarone bolus and infusion * Heparin infusion: low dose no bolus * CHF * Diuresis as tolerated * 1200mL fluid restriction * Monitor Respiratory status * Cardiology Consulted Fluids/Renal: * Cr: 1.33 (Unknown baseline) * Minimal fluid resuscitation at this time secondary to new heart failure * Werner in place, diuresis as tolerated * PRP in AM ID: Trend Fever curve, No leukocytosis GI/Nutrition: * May resume diet * Albumin: 2.9 * LFTs WNL Heme: * Heparin infusion: monitor Coags per protocol * Hx of Polycythemia-requiring multiple phlebotomies * Question of Hematoma versus lesion on lower extremity dopplers: Follow up with PCP on discharge Endocrine: Accu-Checks per protocol, started insulin infusion for 2 blood sugars greater than 180 CCT: 45 Minutes; This time is exclusive of all separately billable procedures. Thank you for involving us in the care of this patient. Please refer to Dr. Jens Rois's addendum for further recommendations. I have personally evaluated and examined this patient. I agree with assessment and plan of Tyler Soriano PA-C. Discussed patient at bedside with Dr. Pitts who is interpreting echo cardiogram, Dr. Burrows, as well as Dr. Funez who performed right heart cath. Holding off diuresis at this point given recent contrast load for CT scan to rule out venous thromboembolic disease
[2017-09-03] MEDS: LEVALBUTEROL 0.63MG/3 ML NEB INH SCH (20:13)
--- NOTE | 2017-09-03 20:24 | NUR ---
Patient has visitors at bedside.
--- NOTE | 2017-09-03 20:39 | Progress Note ---
Progress Note Date of Service Sep 03, 2017. Progress Note A couple of hours after admission, I was called by the RN for report of patient being back in atrial fibrillation and was now hypotensive with a systolic blood pressure in the 70s. He was bolused with 250 ML's of normal saline and EKG was obtained which confirmed atrial fibrillation but no ischemic changes. I contacted the sales support associate on-call who came to see the patient and we decided that he should be moved to the intensive care unit as he was probably going to need vasopressors. Discussed the case with the acquisition professional as well. He had a CT of the chest which was negative for PE but did show significant atelectasis and some pulmonary edema. He had a stat echo which showed right- sided heart failure, LVEF of 40-45%. He ended up leading to the [facility] to have a [place] catheter placed. I spent another 30 minutes dealing with his critical issues and discussing the case with multiple specialists involved.
--- NOTE | 2017-09-03 20:44 | Cardiac Catheterization ---
Procedure Note Procedure Date Sep 03, 2017. Pre-Procedure Diagnosis Cardiothoracic Symptom AUC Score 7 Post-Procedure Diagnosis Elevated Intracardiac Pressures Procedure(s) Performed Right Heart Cath Flare Worker Armin Agriculture Extension Specialist(s) Mariano Estimated Blood Loss Medication(s) Lidocaine 1% Summary of Findings Patient with hypotension today in the setting of new AF with RVR and increased AV mabel agents. Echo showed dilated RV with RV dysfunction. CTA negative for PE but signs suggestive of PH. RHC obtained to assess pulmonary pressures, intracardiac filling pressures and cardiac output. Procedure: - Local sedation with lidocaine - Ultrasound guided access of right IJ with 7Fr sheath - [place] catheter navigated to PA under fluoroscopic guidance. - Catheter sutured in place prior to transfer to ICU. RA - 19 RV - 57/20 PA - 56/20 (36) PAWP - 20 PaSat 65% AoSat 99% Mary CO/CI 4.4/2.0 TPG 16 PVR 3.6 wood unit Summary: 1. Elevated left sided filling pressures/HFpEF (PAWP 20) 2. Moderate pulmonary hypertension -- suspect mixed etiology left sided heart disease and lung disease/REMBERTO (WHO group 2/3). 3. Right sided heart failure (RA 19) 4. Mildly reduced cardiac output. Recommendations: -- Diuresis as BP allows -- Stable systemic BPs - hold of on inotropes for now -- With diastolic heart failure/PH/RV failure suspect pt tolerates AF+RVR poorly and recommend consideration of rhythm control strategy. Hemodynamics Rest Ao: -- Final Ao: -- LV: -- Recommendations Medical therapy and/or Counseling Specimens None Radiation Exposure (mGy) 202 Contrast (mls) none Fluids (cc crystalloids) none Drains none Anesthesia moderate Procedural Complication(s) None Disposition ICU ACC Data Cardiac Status Clinical evaluation leading to the procedure CAD Presntation: Sx unlikely to be ischemic Closure Device Percutaneous Entry Location: Right IJ Closure Device: none - manual hold
[2017-09-03] MEDS: INSULIN HUMAN REGULAR SC SCH (21:00)
[2017-09-03] MEDS ORDERED: METOPROLOL TARTRATE 50 MG TAB PO SCH (21:00)
[2017-09-03] MEDS ORDERED: ENOXAPARIN 1 MG/KG SQ SCH (21:00)
[2017-09-03] MEDS ORDERED: ENOXAPARIN 120 MG/0.8 ML SYR SQ SCH (21:00)
--- NOTE | 2017-09-03 21:00 | NUR ---
agricultural technician in patient room completing lower extremity ultrasound. Family remains at bedside. Cardiovascular pressure monitoring continues. Continue to monitor patient.
--- NOTE | 2017-09-03 21:50 | NUR ---
Notified Sunita Soriano PA-C that patient is currently ordered an NPO diet and would like something to eat. Physician wet process assistant head miller verbalized that patient is allowed to have a diet. Low sodium diet with an 1800 ml fluid restriction to be ordered. Continue to monitor patient.
--- NOTE | 2017-09-03 21:55 | DIAGNOSTIC IMAGING REPORT ---
VENOUS DOPPLER LWR EXT BILA CLINICAL HISTORY: 67 years-old Male presenting with hypoxia. TECHNIQUE: Real-time grayscale and color and spectral Doppler ultrasound imaging of the veins of the bilateral lower extremities was performed. Compression and augmentation were also utilized. COMPARISON: None. FINDINGS: Right: Common femoral vein: Patent. Greater saphenous vein: Patent. Deep femoral vein: Patent. Femoral vein: Patent. Popliteal vein: Patent. Calf veins: Patent. Left: Common femoral vein: Patent. Greater saphenous vein: Patent. Deep femoral vein: Patent. Femoral vein: Patent. Popliteal vein: Patent. Calf veins: Patent. Other: 3 cm hypoechoic mass centered in the superficial soft tissues of the proximal left lateral calf noted. No demonstrable internal vascularity on color Doppler. IMPRESSION: 1. No evidence of deep venous thrombosis. 2. Hypoechoic mass in the superficial soft tissues of the proximal left lateral calf. No demonstrable color Doppler flow. This could suggest an avascular collection such as a hematoma or a poorly vascularized lesion. Electronically signed by: London Worthy M.D. 09/03/2017 9:53 PM Dictated Date/Time: 09/03/2017 9:52 PM
--- NOTE | 2017-09-03 22:05 | NUR ---
x-ray in room to do chest x-ray
--- NOTE | 2017-09-03 22:06 | NUR ---
Patient taken off of BiPAP per his request and put on Oxymask @ 5 lpm. Patient tolerating well.
--- NOTE | 2017-09-03 22:14 | DIAGNOSTIC IMAGING REPORT ---
CHEST ONE VIEW PORTABLE CLINICAL HISTORY: 67 years-old Male presenting with Hypoxia, hypotension. TECHNIQUE: Portable upright AP view of the chest was obtained. COMPARISON: CTA performed earlier the same day. FINDINGS: Interval placement of a right internal jugular central venous catheter which terminates at the superior cavoatrial junction. Cardiac silhouette enlarged. Pulmonary vasculature enlarged. Lungs essentially clear. No large effusion or pneumothorax. Osseous structures normal. Upper abdomen normal. IMPRESSION: 1. Right IJ central venous catheter terminates at the superior cavoatrial junction. No pneumothorax. 2. Cardiomegaly with volume overload. Electronically signed by: London Worthy M.D. 09/03/2017 10:13 PM Dictated Date/Time: 09/03/2017 10:11 PM
--- NOTE | 2017-09-03 22:15 | NUR ---
Patients frances arrived to unit and patient is currently eating at this time. Patient adjust bed on his own and it has been difficult with keeping PA and CVP line leveled. Will continue to monitor patient.
--- NOTE | 2017-09-03 22:35 | NUR ---
Sunita Soriano aware of Cardiac Output, Cardiac Index, SV, PA, and CVP pressures.
--- NOTE | 2017-09-03 23:04 | NUR ---
Patient sleeping at this time. Cardiac monitoring and Invasive pressure monitoring continues at this time. Patient placed back on BiPAP. Continue to monitor patient.
[2017-09-03] MEDS ORDERED: AMIODARONE IV BOLUS / DRIP IV STA (23:28)
[2017-09-03] MEDS ORDERED: HEPARIN IV LOW DOSE NO BOLUS STA (23:28)
[2017-09-03] MEDS ORDERED: AMIODARONE 360MG / 200ML D5W ONE (23:29)
[2017-09-03] MEDS ORDERED: AMIODARONE 150MG / 100ML D5W ONE (23:29)
[2017-09-03] MEDS ORDERED: AMIODARONE / D5W 100 ML IV SCH (23:45)
--- NOTE | 2017-09-03 23:48 | NUR ---
Amiodarone bolus given Amiodarone gtt started Heparin gtt started at 20 ml/hr or 1,000 units/hour
[2017-09-03] MEDS: HEPARIN 25,000 UNIT/500ML D5W 500 ML IV PRN (23:57)
[2017-09-04] VITALS (46 sets, daily range): BP systolic 44–145; BP diastolic 8–87; PULSE 45–131; TEMP 37–37.7; O2SAT 90–100
[2017-09-04] MEDS ORDERED: AMIODARONE / D5W 200 ML IV SCH
[2017-09-04] MEDS: ACETAMINOPHEN 325 MG TAB PO PRN (00:09)
--- NOTE | 2017-09-04 00:10 | NUR ---
Sunita Soriano aware of Cardiac Output, Cardiac Index, SV, PA, and CVP pressures.
[2017-09-04] MEDS: LEVALBUTEROL 0.63MG/3 ML NEB INH SCH ×4 (01:43→19:51)
--- NOTE | 2017-09-04 02:00 | NUR ---
Patient sleeping at this time. Cardiac monitoring and Invasive pressure monitoring continues at this time. Patient placed back on BiPAP. Continue to monitor patient.
--- NOTE | 2017-09-04 04:27 | NUR ---
Patient noted to be increasingly confused. Patient is taking hospital gown off and pulling at tubes and wires. Patient reoriented, but continues to pull at monitoring wires. Sunita Soriano PA-C aware and ABG to be drawn early. Patient continues to be on BiPAP with O2 saturations in the upper 90's. Continue to monitor patient.
--- NOTE | 2017-09-04 04:55 | NUR ---
Respiratory therapy in patient room and ABG was drawn. Sunita Soriano PA-C made aware of ABG results. Continue to monitor patient.
--- NOTE | 2017-09-04 05:00 | NUR ---
IPAP increased to 20 by Respiratory Therapist. EPAP remains the same at 6
[2017-09-04] MEDS: AMIODARONE / D5W 200 ML IV SCH ×2 (05:13→17:04)
--- NOTE | 2017-09-04 05:42 | NUR ---
Am, marcos, skin, oral and cath care completed at this time. Gown and Linen changed. CHG bath complete.
[2017-09-04 05:48] LABS: BASO % 0.1 %; BASO ABS # 0.01 K/uL (0-0.2); EOS % 0.2 %; EOS ABS # 0.02 K/uL (0-0.5); HEMATOCRIT 48.3 % (42-52); HEMOGLOBIN 14.3 g/dL (14.0-18.0); IG# 0.01 K/uL (0.00-0.02); LYMPH % 6.1 %; LYMPH ABS # 0.52 K/uL (1.2-3.4); MEAN CELL VOLUME 90.8 fL (80-100); MEAN CORPUSCULAR HEMOGLOBIN 26.9 pg (25-34); MEAN CORPUSCULAR HGB CONC 29.6 g/dl (32-36); MEAN PLATELET VOLUME 9.3 fL (7.4-10.4); MONO % 10.6 %; NEUT % 82.9 %; NEUT ABS # 7.02 K/uL (1.4-6.5); PLATELET COUNT 157 K/uL (130-400); RED CELL DISTRIBUTION WIDTH CV 13.1 % (11.5-14.5); RED CELL DISTRIBUTION WIDTH SD 43.6 fL (36.4-46.3); WHITE BLOOD COUNT 8.48 K/uL (4.8-10.8)
[2017-09-04 05:58] LABS: PTT PATIENT 43.6 SECONDS (21.0-31.0)
[2017-09-04] MEDS ORDERED: HEPARIN IV BOLUS 3,000 UNIT in SYRINGE 0 ML IV ONE (06:15)
[2017-09-04 06:22] LABS: CALCIUM 8.6 mg/dl (8.5-10.1); CREATININE 1.66 mg/dl (0.60-1.40); PHOSPHORUS 4.4 mg/dl (2.5-4.9); POTASSIUM 4.1 mmol/L (3.5-5.1)
--- NOTE | 2017-09-04 08:00 | NUR ---
Pt removed from bipap mask and placed to nasal cannula 6L for breakfast. Pt is alert and oriented x4 but seems forgetful at times. VS stable. Right swan line in place and secured by tegaderm dressing. Heparin drip at 22m/hr (1100 units/hr) with Amiodarone at 0.5mg/hr. Repositioned in bed.
--- NOTE | 2017-09-04 08:47 | Clinical Documentation Query ---
QUERY 1 OF [address] AYALA, In your clinical opinion is this patient being managed for: ( ) Acute renal failure with chronic kidney disease, stage 3 ( x ) Acute renal failure with chronic kidney disease of unknown stage ( ) Not Agree ( ) Other explanation of clinical findings (Please Explain) ( ) Unable to determine (Please Define) ( ) Need to Discuss The medical record reflects the following clinical findings, treatment, and risk factors. Clinical Indicators:67 yo male presenting with acute respiratory failure, acute systolic CHF. Initial Cr 1.33 with GFR 54.5 which has trended up to Cr 1.66 with GFR of 41.7. Baseline renal status data is not available. Pt has also been hypotensive 69/45 (NIBP) Treatment: IV fluids bolus, monitor PRP's, ICU, BIPAP, IV amiodarone, IV heparin, Risk Factors: age, A fib, acute respiratory failure, acute CHF, hx of HTN/obesity/suspected REMBERTO and COPD QUERY 2 OF 2 In your clinical opinion is this patient being managed for: ( x ) Multifactorial Encephalopathy ( ) Not Agree ( ) Other explanation of clinical findings (Please Explain) ( ) Unable to determine (Please Define) ( ) Need to Discuss The medical record reflects the following clinical findings, treatment, and risk factors. Clinical Indicators:Documentation by nursing indicates pt with increasing confusion, pulling at tubes and wires, removing gown. Cr climbing 1.66, ABG 7.22/97/94/40 Treatment: ICU monitoring, BIPAP, IV fluids, repeat ABG's, continued monitoring Risk Factors: MARÍA ELENA, acute CHF, acute respiratory failure Please clarify and document your clinical opinion in the progress notes and discharge summary. Terms such as "probable", "suspected", "likely", "questionable", "possible", or "still to be ruled out" are acceptable. IF IN AGREEMENT, YOU MUST DOCUMENT ABOVE DIAGNOSTIC STATEMENT IN DAILY PROGRESS NOTES AND DISCHARGE SUMMARY. This document is not part of the patient's record. Thank You, Kiki Funez, RN [phone]
[2017-09-04] MEDS: INSULIN HUMAN REGULAR SC SCH ×3 (08:56→17:03)
[2017-09-04] MEDS ORDERED: LISINOPRIL 20 MG TAB PO SCH (09:00)
[2017-09-04] MEDS: ASPIRIN 81 MG ECTAB PO SCH (09:20)
[2017-09-04] MEDS: CYANOCOBALAMIN 500 MCG TAB (VIT B-12) PO SCH (09:20)
[2017-09-04] MEDS ORDERED: FUROSEMIDE INJ 20 MG in SYRINGE 0 ML IV ONE (09:30)
--- NOTE | 2017-09-04 10:00 | NUR ---
Pt resting with eyes closed. VS stable. [place] line to be d/c'd today, awaiting MD.
--- NOTE | 2017-09-04 10:05 | Pulmonary Consultation ---
History General Date of Service: Sep 04, 2017. Stated Complaint: Atrial Flutter, Acute Hypoxic Respiratory Failure HPI The patient is a 67 year old male who presents to [facility] with complaints of Atrial Flutter, Acute Hypoxic Respiratory Failure. The patient's primary care provider is Edward Tyler D.O.. Mr. Schreiber is a 67-year-old male with history of hypertension, morbid obesity, polycythemia who presented yesterday afternoon as a direct transfer from [facility]. Patient was seen by his primary care physician for his yearly physical examination where he was found to be in atrial fibrillation. Upon arrival to [place], he was found to be in atrial flutter with RVR, with a 2-1 block and a heart rate of 145 beats per minute. At that time he he denied any lightheadedness, dizziness, chest pain or palpitations. He does admit to about 8 pound weight gain in the last month, This was associated with mild bilateral lower extremity edema. He denied any orthopnea, paroxysmal nocturnal dyspnea. He denies any fever, chills, cough. His main complaint was generalized weakness and lethargy.He currently takes metaprolol 25 mg BID which was increased to 50 mg BID several days prior to admission. He also takes hydrocodone 12.5 mg daily, for osteoarthritis. Per his son who is at bedside, patient has not been his normal self lately. He describes episodes of increased confusion. He was given IV Cardizem and placed on Cardizem drip. He subsequently converted to normal sinus rhythm. Per record, his echocardiogram showed an ejection fraction of 45% with global hypokinesis. Chest x-ray upon arrival to our hospital showed pulmonary vascular congestion and consistent with acute CHF. He was given Lasix IV 40 mg bolus and transferred to [facility]. He was on 4 L nasal cannula but still remained hypoxic with ABG of 7.26/80/40. Upon arrival to [facility], his initial vital signs were MAXIMUM TEMPERATURE 36.6, pulse 73, respiratory rate 20, blood pressure 116/68 , saturating 95% on BiPAP 6/16, FiO2 50%, respiratory rate 20. He was admitted for acute on chronic systolic heart failure, atrial fibrillation with RVR and acute hypercapnic hypoxic respiratory failure. The patient subsequently became hypotensive with a blood pressure of 69/45 he was given bolus of 250 mL. EKG showed atrial fibrillation with slow ventricular response of 59 bpm. He was subsequently transferred to the ICU for further management. An echocardiogram, showed mildly reduced LV systolic function with D -shaped septum consistent with pulmonary hypertension. EF estimated to be 45-50 % with severely dilated RV chamber and reduced right ventricular systolic function. Stat CT chest was done which showed small bilateral pleural effusions , compressive in the atelectasis and pulmonary edema, however was negative for pulmonary embolism. Bilateral lower extremity ultrasounds were negative for DVT. A right heart catheterization was done to evaluate pulmonary hypertension. RA - 19 RV - 57/20 PA - 56/20 (36) PAWP - 20 PaSat 65% AoSat 99% Mary CO/CI 4.4/2.0 TPG 16 PVR 3.6 wood unit Repeat ABG this morning shows 7.18/107/37/39/62.6% on BiPAP. He now remains on amiodarone and heparin drips for rate and rhythm control as well as anticoagulation. He is currently 1.7 L negative balance since admission. At this the time of my evaluation, patient is sitting up in bed speaking with family and eating breakfast and 5-6 L nasal cannula, saturating between 88-92%. He denies any shortness of breath, chest pain, lightheadedness or dizziness. Son and [id number] were both at bedside. Historian: patient Onset: yesterday Severity: moderate Complaint Status: improved Review of Systems Constitutional: reports: as stated in HPI Eyes: reports: as stated in HPI ENT: reports: as stated in HPI Cardiovascular: reports: as stated in HPI Respiratory: reports: as stated in HPI Gastrointestinal: reports: as stated in HPI Genitourinary - Male: reports: as stated in HPI Musculoskeletal: reports: as stated in HPI Integumentary: reports: as stated in HPI Neurologic: reports: as stated in HPI Psychiatric: reports: as stated in HPI Endocrine: as stated in HPI Hematologic / Lymphatic: as stated in HPI Allergic / Immunologic: as stated in HPI All Other Symptoms All Other Systems: Reviewed and Negative Past Medical History Past Medical History: Hypertension Polycythemia Osteoarthritis Past Surgical History: Denies any previous surgical history Family History Mom - OK, old age Dad - old age Brother- colon cancer Sister with ovarian cancer- Grandson with iron overload which has now resolved Social History Smokes 1 cigarette daily for last 20 years. Previous smoked 1/2ppd for 35 years. Drinks coffee, drinks alcohol heavily at times. Last use 1 month ago. Hx Tobacco Use In Past Year?: Yes Smoking Status: Current Every Day Smoker Allergies Coded Allergies: Maple [place] (Verified Allergy, Unknown, unknown, 09/03/17) Current Medications Reported Home Medications Medications Dose Route/Sig Max Daily Dose Days Date Category Zestril (Lisinopril) 20 Mg Tab 20 Mg PO DAILY 09/03/17 Reported Hydrochlorothiazide 12.5 Mg Tab 1 Tab PO DAILY 30 09/03/17 Reported Garlic Oil 500 (Garlic) 500 Mg Cap PO DAILY 09/03/17 Reported Aspirin Ec (Aspirin) 81 Mg Tab PO DAILY 09/03/17 Reported Vitamin B12 500MCG (Cyanocobalamin) 500 Mcg Tab 500 Mcg PO DAILY 09/03/17 Reported Lopressor (Metoprolol Tartrate) 25 Mg Tab 1 Tab PO BID 90 09/03/17 Reported [place]-3 (Fish Oil) 1 Ea Cap 1 Cap PO DAILY 09/03/17 Reported Physical Physical Exam Vital Signs: Date Time Temp Pulse Resp B/P (MAP) Pulse Ox O2 Delivery O2 Flow Rate FiO2 09/04/17 07:34 82 100 50 09/04/17 07:34 82 22 100 BiPAP/CPAP 50 09/04/17 06:01 96 16 57/19 (34) 98 122/82 09/04/17 05:32 95 12 50/25 (35) 99 120/80 09/04/17 05:13 82 19 50/24 (35) 96 109/65 09/04/17 05:10 86 97 50 09/04/17 05:02 83 20 44/19 (29) 92 98/66 09/04/17 04:47 92 14 68/37 (52) 96 09/04/17 04:32 82 18 53/22 (34) 97 120/69 (70) 09/04/17 04:18 81 15 45/19 (29) 98 09/04/17 04:01 37.0 79 19 56/20 (35) 96 134/83 (90) 09/04/17 04:00 BiPAP 50 09/04/17 03:48 83 20 55/17 (33) 96 09/04/17 03:31 80 22 51/14 (94) 97 119/69 (94) 09/04/17 03:18 45 18 60/14 (30) 98 09/04/17 03:03 82 20 50/15 (31) 97 127/70 (75) 09/04/17 02:47 83 16 49/18 (30) 97 108/69 (80) 09/04/17 02:17 81 21 47/17 (30) 98 09/04/17 02:01 81 19 50/10 (29) 98 139/76 (90) 09/04/17 01:47 82 14 50/14 (30) 99 09/04/17 01:43 83 20 97 BiPAP/CPAP 50 09/04/17 01:43 83 97 50 09/04/17 01:31 89 23 61/17 (104) 96 129/86 (104) 09/04/17 01:17 86 21 57/16 (31) 98 09/04/17 01:02 87 21 53/11 (32) 99 122/62 (83) 09/04/17 00:47 91 18 52/19 (34) 97 09/04/17 00:31 84 19 55/11 (33) 98 131/78 (84) 09/04/17 00:17 88 15 52/8 (27) 99 09/04/17 00:02 86 18 48/14 (28) 98 115/77 09/04/17 00:02 37.6 86 18 48/14 (28) 98 115/77 (90) 09/04/17 00:01 97 19 51/13 (30) 98 09/04/17 00:01 BiPAP 50 09/03/17 23:46 82 17 44/16 (28) 98 09/03/17 23:31 97 17 58/29 (40) 98 123/76 09/03/17 23:16 91 15 50/25 (33) 99 09/03/17 23:02 98 20 48/22 (30) 99 113/80 09/03/17 23:01 90 17 62/30 (42) 97 09/03/17 23:01 90 17 48/23 (33) 97 113/80 (93) 09/03/17 22:35 88 24 58/21 (36) 89 101/53 (70) 09/03/17 22:02 105 20 54/22 (34) 80 114/60 (84) 09/03/17 21:32 102 18 55/28 (39) 97 122/72 09/03/17 21:04 82 21 53/20 (35) 98 09/03/17 21:02 80 15 48/20 (30) 98 127/58 (96) 09/03/17 20:49 76 20 48/19 (29) 96 09/03/17 20:45 83 17 56/27 (37) 96 09/03/17 20:31 73 13 47/20 (29) 97 112/72 (90) 09/03/17 20:30 67 20 51/24 (33) 98 09/03/17 20:15 54 19 45/21 (29) 99 09/03/17 20:15 84 31 96 BiPAP/CPAP 50 09/03/17 20:14 84 96 50 09/03/17 20:03 37.8 76 23 52/21 (31) 95 108/56 (77) 09/03/17 20:00 BiPAP 50 09/03/17 19:59 77 27 55/18 (30) 80 110/59 (81) 09/03/17 19:45 91 22 54/22 (33) 92 09/03/17 19:30 76 18 58/24 (35) 89 09/03/17 19:29 80 28 55/20 (32) 92 119/68 09/03/17 19:02 60 16 142/70 (94) 98 Mask 4 09/03/17 17:45 80 18 104/61 (75) 95 Oxymask 5.0 09/03/17 17:30 37.1 84 20 105/65 (78) 90 Nasal Cannula 4.0 09/03/17 16:00 96 BiPAP 09/03/17 15:59 78/48 (58) 09/03/17 15:39 57 69/45 (53) 09/03/17 15:21 37.0 73 20 77/53 (61) 98 BiPAP 09/03/17 13:46 36.6 73 20 116/68 95 BiPAP 45 09/03/17 13:30 36.6 73 20 116/68 (84) 95 BiPAP 45 General Appearance: WD/WN, NO APPARENT DISTRESS, obese, other (appear older than stated age) Head: NORMOCEPHALIC, ATRAUMATIC Eyes: PERRLA, NO DISCHARGE, EOMI, SCLERAE NORMAL ENT: NORMAL MOUTH EXAM, NORMAL THROAT EXAM Neck: NO TENDERNESS, NO STRIDOR, SUPPLE, other (PA catheter in RIJ) Respiratory: other (Diminished breath sound bilaterally) Cardiovasular: irregular rate, abnormal rhythm, other (loud P2) Abdomen: NON TENDER, NORMAL BOWEL SOUNDS Back: NORMAL INSPECTION, NO MIDLINE TENDERNESS, NO CVA TENDERNESS Upper Extremities: NO EDEMA, NO DEFORMITY, NORMAL ROM Lower Extremities: edema, other (no cyanosis, no clubbing) Neuro: ALERT, ORIENTED x 3, NORMAL MOTOR EXAM, NORMAL SENSATION Reflexes: biceps (R) Psychiatric: NORMAL AFFECT, NO SUICIDAL IDEATION, CONTRACTS FOR SAFETY Diagnostics Labs Results Past 24 Hours Test 09/03/17 14:04 09/03/17 17:51 09/03/17 18:55 09/03/17 21:15 Range/Units White Blood Count 8.22 4.8-10.8 K/uL Red Blood Count 5.03 4.7-6.1 M/uL Hemoglobin 13.8 14.0-18.0 g/dL Hematocrit 45.1 42-52 % Mean Corpuscular Volume 89.7 80-100 fL Mean Corpuscular Hemoglobin 27.4 25-34 pg Mean Corpuscular Hemoglobin Concent 30.6 32-36 g/dl Platelet Count 197 130-400 K/uL Mean Platelet Volume 9.3 7.4-10.4 fL Neutrophils (%) (Auto) 75.2 % Lymphocytes (%) (Auto) 10.5 % Monocytes (%) (Auto) 12.7 % Eosinophils (%) (Auto) 1.2 % Basophils (%) (Auto) 0.2 % Neutrophils # (Auto) 6.18 1.4-6.5 K/uL Lymphocytes # (Auto) 0.86 1.2-3.4 K/uL Monocytes # (Auto) 1.04 0.11-0.59 K/uL Eosinophils # (Auto) 0.10 0-0.5 K/uL Basophils # (Auto) 0.02 0-0.2 K/uL RDW Standard Deviation 42.9 36.4-46.3 fL RDW Coefficient of Variation 13.1 11.5-14.5 % Immature Granulocyte % (Auto) 0.2 % Immature Granulocyte # (Auto) 0.02 0.00-0.02 K/uL Prothrombin Time 10.9 9.0-12.0 SECONDS Prothromb Time International Ratio 1.0 0.9-1.1 Activated Partial Thromboplast Time 34.8 21.0-31.0 SECONDS Partial Thromboplastin Ratio 1.3 Arterial Blood pH 7.31 7.35-7.45 Arterial Blood Partial Pressure CO2 73 35-46 mmHg Arterial Blood Partial Pressure O2 46 80-95 mm/Hg Arterial Blood HCO3 36 19-24 mmol/L Arterial Blood Oxygen Saturation 80.5 90-95 % Arterial Blood Base Excess 7.3 -9-1.8 mEq/L Arterial Blood Gas Delivery 45% William Test POS POS Sodium Level 134 136-145 mmol/L Potassium Level 4.2 3.5-5.1 mmol/L Chloride Level 96 98-107 mmol/L Carbon Dioxide Level 36 21-32 mmol/L Anion Gap 3.0 3-11 mmol/L Blood Urea Nitrogen 22 7-18 mg/dl Creatinine 1.33 0.60-1.40 mg/dl Est Creatinine Clear Calc Drug Dose 65.4 ml/min Estimated GFR () 63.2 Estimated GFR (Non- 54.5 BUN/Creatinine Ratio 16.7 10-20 Random Glucose 108 70-99 mg/dl Calcium Level 8.2 8.5-10.1 mg/dl Magnesium Level 1.9 1.8-2.4 mg/dl Total Bilirubin 0.5 0.2-1 mg/dl Direct Bilirubin 0.2 0-0.2 mg/dl Aspartate Amino Transf (AST/SGOT) 21 15-37 U/L Alanine Aminotransferase (ALT/SGPT) 38 12-78 U/L Alkaline Phosphatase 62 45-117 U/L Troponin I 0.027 0.032 0-0.045 ng/ml Total Protein 6.2 6.4-8.2 gm/dl Albumin 2.9 3.4-5.0 gm/dl Thyroid Stimulating Hormone (TSH) 0.909 0.300-4.500 uIu/ml Lactic Acid Level 1.0 0.4-2.0 mmol/L Pro-B-Type Natriuretic Peptide 1330 0-900 pg/ml Bedside Blood Gas pH (LAB) 7.24 7.35-7.45 Bedside Blood Gas pCO2 (LAB) 93 35-46 mmHg Bedside Blood Gas pO2 (LAB) 42 80-95 mmHg Bedside Blood Gas HCO3 (LAB) 40 19-24 meq/L Bedside Blood Gas Total CO2 > 40 24-31 mEq/l Bedside Blood Gas Base Excess (LAB) 12.0 -9-1.8 meq/L Bedside Blood Gas O2 Saturation 65.0 90-95 % Bedside Glucose 115 70-99 mg/dl Test 09/04/17 00:11 09/04/17 00:15 09/04/17 04:51 09/04/17 05:31 Range/Units Troponin I 0.029 0-0.045 ng/ml Bedside Glucose 167 70-99 mg/dl Blood Gas Sample Site L Radial Bedside Blood Gas pH (LAB) 7.22 7.35-7.45 Bedside Blood Gas pCO2 (LAB) 97 35-46 mmHg Bedside Blood Gas pO2 (LAB) 94 80-95 mmHg Bedside Blood Gas HCO3 (LAB) 40 19-24 meq/L Bedside Blood Gas Total CO2 > 40 24-31 mEq/l Bedside Blood Gas Base Excess (LAB) 12.0 -9-1.8 meq/L Bedside Blood Gas O2 Saturation 94.0 90-95 % William Test Pass Oxygen Delivery Device BIPAP Bedside Oxygen Rate (breaths/min) 20 Bedside FiO2 50 % Blood Gas IPAP 16 White Blood Count 8.48 4.8-10.8 K/uL Red Blood Count 5.32 4.7-6.1 M/uL Hemoglobin 14.3 14.0-18.0 g/dL Hematocrit 48.3 42-52 % Mean Corpuscular Volume 90.8 80-100 fL Mean Corpuscular Hemoglobin 26.9 25-34 pg Mean Corpuscular Hemoglobin Concent 29.6 32-36 g/dl Platelet Count 157 130-400 K/uL Mean Platelet Volume 9.3 7.4-10.4 fL Neutrophils (%) (Auto) 82.9 % Lymphocytes (%) (Auto) 6.1 % Monocytes (%) (Auto) 10.6 % Eosinophils (%) (Auto) 0.2 % Basophils (%) (Auto) 0.1 % Neutrophils # (Auto) 7.02 1.4-6.5 K/uL Lymphocytes # (Auto) 0.52 1.2-3.4 K/uL Monocytes # (Auto) 0.90 0.11-0.59 K/uL Eosinophils # (Auto) 0.02 0-0.5 K/uL Basophils # (Auto) 0.01 0-0.2 K/uL RDW Standard Deviation 43.6 36.4-46.3 fL RDW Coefficient of Variation 13.1 11.5-14.5 % Immature Granulocyte % (Auto) 0.1 % Immature Granulocyte # (Auto) 0.01 0.00-0.02 K/uL Prothrombin Time 10.8 9.0-12.0 SECONDS Prothromb Time International Ratio 1.0 0.9-1.1 Activated Partial Thromboplast Time 43.6 21.0-31.0 SECONDS Partial Thromboplastin Ratio 1.7 Venous Blood pH 7.18 7.36-7.41 Venous Blood Partial Pressure CO2 107 38.0-50.0 mmHg Venous Blood Partial Pressure O2 37 mmHg Venous Blood HCO3 39 mmol/L Venous Blood Oxygen Saturation 62.6 % Venous Blood Base Excess 6.0 mEq/L Sodium Level 134 136-145 mmol/L Potassium Level 4.1 3.5-5.1 mmol/L Chloride Level 94 98-107 mmol/L Carbon Dioxide Level 39 21-32 mmol/L Anion Gap 1.0 3-11 mmol/L Blood Urea Nitrogen 23 7-18 mg/dl Creatinine 1.66 0.60-1.40 mg/dl Est Creatinine Clear Calc Drug Dose 52.8 ml/min Estimated GFR () 48.4 Estimated GFR (Non- 41.7 BUN/Creatinine Ratio 13.7 10-20 Random Glucose 110 70-99 mg/dl Calcium Level 8.6 8.5-10.1 mg/dl Phosphorus Level 4.4 2.5-4.9 mg/dl Magnesium Level 2.2 1.8-2.4 mg/dl Test 09/04/17 06:40 09/04/17 08:30 Range/Units Urine Color YELLOW Urine Appearance CLEAR CLEAR Urine pH 5.0 4.5-7.5 Urine Specific [place] 1.037 1.000-1.030 Urine Protein TRACE NEG Urine Glucose (UA) NEG NEG Urine Ketones NEG NEG Urine Occult Blood 2+ NEG Urine Nitrite NEG NEG Urine Bilirubin NEG NEG Urine Urobilinogen NEG NEG Urine Leukocyte Esterase SMALL NEG Urine WBC (Auto) 10-30 0-5 /hpf Urine RBC (Auto) >30 0-4 /hpf Urine Hyaline Casts (Auto) 1-5 0-5 /lpf Urine Epithelial Cells (Auto) 20-30 0-5 /lpf Urine Bacteria (Auto) NEG NEG Microbiology Results 09/03/17 MRSA DNA Surveillance Screen - Final, Complete Specimen Negative for MRSA by DNA Probe Diagnostic Radiology Transthoracic echocardiogram 09/03/2017 -- Conclusions -- * Normal LV chamber size with moderate concentric LVH. * Mildly reduced LV systolic function with D shaped septum and flattened septal motion consistent with RV pressure/volume overload, EF 45-50%. * Severely dilated RV chamber size with severely reduced RV systolic function. * Akinesis of the RV free wall with preserved funciton of RV apical wall motion. * No significant valvular pathology. * TR jet inadequate to accurately calculate PASP. * Mild biatrial enlargement. Impression Assessment and Plan Acute on chronic hypoxic hypercapnic respiratory failure Morbid obesity Obstructive sleep apnea Obesity hypoventilation syndrome Possible COPD Tobacco use disorder Atrial fibrillation Pulmonary hypertension Right ventricular heart failure Mr. Schreiber has multiple medical problems. Acute on chronic hypoxic hypercapnic respiratory failure is multifactorial in nature. Due to his body habitus is he likely has components of undiagnosed obstructive sleep apnea and obesity hypoventilation syndrome. Patient has long history of tobacco use and is a current smoker and may have questionable COPD. Patient likely has had prolonged hypoxemia leading secondary polycythemia, atrial fibrillation, pulmonary hypertension and right ventricular heart failure. Pulmonary hypertension on right heart catheterization has an elevated wedge pressure consistent with underlying left heart disease. However, with his history he likely has components of group 2 and 3 pulmonary hypertension. Patient is a very tenuous at this time. I spoke to family as well as patient at bedside and explained to the underlying treatment for pulmonary hypertension is to optimize his underlying cardiac and pulmonary diseases. Obviously, this is a fine balance. He is currently on heparin drip and amiodarone for rate and rhythm control. Diuretic therapy is also a mainstay in treatment, however he is to be very careful with his blood pressures. Cardiology is also following closely. From a respiratory standpoint, my recommendations are as follows. Continue with supplemental oxygenation mean an SaO2 between 88-92%. Currently he is on 5 L/m. VBG this morning is consistent with acute on chronic hypercapnic respiratory failure. I do recommend intermittently uses BiPAP. Due to his body habitus he can probably handle increased EPAP from 6-8. Continue with BiPAP of 20. If he is unable to ventilate adequately, intubation may be inevitable. I do agree that he will likely need a full polysomnography as an outpatient to evaluate for obstructive sleep apnea. However due to his current diagnoses of pulmonary hypertension he will qualify for BiPAP with oxygen upon discharge. Patient has requested Dr. Galo to follow him upon discharge. Patient has had history of daily hydrocodone use which may have precipitate and worsen hypercarbia. We should be judicious with use of narcotics, sleep aids and sedatives. He should avoid operation of heavy machinery, until REMBERTO diagnosed and optimally treated. TSH within normal. Dietary consult is warranted at this time as increased exercise may not be a viable option for him at this time. CODE STATUS discussed at length. He would like to remain full code at this time , with a trial of intubation for several days. I appreciate the consult. Please contact me if you've any further questions or concerns.
[2017-09-04 10:10] LABS: HEMOGLOBIN A1C 5.9 % (4.5-5.6)
--- NOTE | 2017-09-04 10:45 | NUR ---
Pt placed back to bipap. Pt has sleep apnea when napping and desat to 70's.
--- NOTE | 2017-09-04 11:29 | NUR ---
Case Management- Met with patient in room. He reports he has an advance directive/living will but no healthcare poa. He lives alone in an apartment. There are no steps to enter. He is independent with all adls except cleaning he has someone coming in one time a month. He uses no assistive devices is able to drive. He reports he has no home oxygen. He would like to return on discharge. He would benefit from pt/ot when able and he may need a two step prior to discharge to see if home o2 is needed. CM following
[2017-09-04 12:31] LABS: PTT PATIENT 60.7 SECONDS (21.0-31.0)
[2017-09-04 12:59] LABS: INFLUENZA A PCR Neg for Influ A (NEG); INFLUENZA B PCR Neg for Influ B (NEG)
--- NOTE | 2017-09-04 13:05 | Cardiology Follow-Up ---
Subjective Date of Service: Sep 04, 2017. Pt evaluation today including: conversation w/ patient, conversation w/ family , physical exam, lab review, review of studies, review of inpatient medication list, conversation w/ attending History of Present Illness This is a 67-year-old gentleman who was transferred here today for treatment of newly diagnosed atrial fibrillation and hypoxia. He had evidently gone to his physician's office for a routine visit on 09/02/2017, was noted to have a rapid heart rate and was sent to the hospital. He was observed to be in atrial flutter with 2-1 AV conduction, he is treated with intravenous diltiazem and subsequently spontaneously converted to sinus rhythm. He had been on metoprolol 25 mg twice a day as an outpatient, this was increased to 50 mg twice a day on admission. He was subsequently transferred here for treatment. At the time of my initial evaluation he had been here for several hours, and although he came in sinus rhythm he had reverted to atrial fibrillation with a controlled heart rate. His blood pressure was low however he was conversational and he was on CPAP. He describes feeling symptoms of shortness of breath for several months, he was unaware of having atrial fibrillation, but he recalls having symptoms similar to it (which is a fluttering in his chest) in the past, although he is little bit vague about the duration. It sounds as though it was probably about 3 months, but intermittently. He is not very active but the only thing he noticed was he would get short of breath with activities for several months and that may have been progressive. He does not recall having peripheral edema, he does not have exertional chest discomfort. Due to hypotension and uncertainty as to the cause was transferred down to the ICU, his echocardiogram showed poor RV function and a CAT scan did not show pulmonary emboli. A [place] catheter showed pulmonary hypertension with some left ventricular end-diastolic elevated pressure. He is on amiodarone for his atrial arrhythmia. Today he is doing better, he is in atrial fibrillation now but is unaware of it does not feel it. He is having less difficulty with shortness of breath today. His blood pressure is much better. Social History Smoking Status: Current Every Day Smoker History of Alcohol Use: Yes Review of Systems Respiratory: + shortness of breath, + dyspnea on exertion, No cough, No wheezing Cardiac: + palpitations, No chest pain, No orthopnea, No PND, No edema Medications Cardiovascular: Item Value Date Time Aspirin 81 mg 09/04/17 0900 (Ecotrin Tab) QAM/PO 09/04/17 0920 Amiodarone HCL/ 200 ml @ 16.7 mls/hr 09/04/17 0600 Dextrose .[id number]/IV 09/04/17 0513 Heparin Sodium/ 500 ml @ 22 mls/hr 09/03/17 2345 Dextrose .[id number] PRN/IV 09/03/17 2357 Objective Vital Signs Past 12 Hours Date Time Temp Pulse Resp B/P (MAP) Pulse Ox O2 Delivery O2 Flow Rate FiO2 09/04/17 10:00 89 22 119/67 (84) 95 Oxymask 8.0 09/04/17 08:00 BiPAP 50 09/04/17 08:00 37.2 87 21 136/77 (96) 94 BiPAP 50 09/04/17 07:34 82 100 50 09/04/17 07:34 82 22 100 BiPAP/CPAP 50 09/04/17 06:01 96 16 57/19 (34) 98 122/82 09/04/17 05:32 95 12 50/25 (35) 99 120/80 09/04/17 05:13 82 19 50/24 (35) 96 109/65 09/04/17 05:10 86 97 50 09/04/17 05:02 83 20 44/19 (29) 92 98/66 09/04/17 04:47 92 14 68/37 (52) 96 09/04/17 04:32 82 18 53/22 (34) 97 120/69 (70) 09/04/17 04:18 81 15 45/19 (29) 98 09/04/17 04:01 37.0 79 19 56/20 (35) 96 134/83 (90) 09/04/17 04:00 BiPAP 50 09/04/17 03:48 83 20 55/17 (33) 96 09/04/17 03:31 80 22 51/14 (94) 97 119/69 (94) 09/04/17 03:18 45 18 60/14 (30) 98 09/04/17 03:03 82 20 50/15 (31) 97 127/70 (75) 09/04/17 02:47 83 16 49/18 (30) 97 108/69 (80) 09/04/17 02:17 81 21 47/17 (30) 98 09/04/17 02:01 81 19 50/10 (29) 98 139/76 (90) 09/04/17 01:47 82 14 50/14 (30) 99 09/04/17 01:43 83 20 97 BiPAP/CPAP 50 09/04/17 01:43 83 97 50 09/04/17 01:31 89 23 61/17 (104) 96 129/86 (104) 09/04/17 01:17 86 21 57/16 (31) 98 09/04/17 01:02 87 21 53/11 (32) 99 122/62 (83) Last Recorded Weight-Kilograms: 113.200 Physical Exam Constitutional: General Apperance: obese Level of Distress: moderate distress, acutely ill Lungs: Respiratory effort: good air movement Auscultation: no wheezing, no rales/crackles, deminished air movement Cardiovascular: Heart Auscultation: no murmurs, no rubs, no gallops, irregular rate rhythm Peripheral Pulses: Bruits: none appreciated Extremities: no edema Data Laboratory Results: Last 24 Hours Test 09/03/17 14:04 09/03/17 17:51 09/03/17 18:55 09/03/17 21:15 White Blood Count 8.22 K/uL Red Blood Count 5.03 M/uL Hemoglobin 13.8 g/dL Hematocrit 45.1 % Mean Corpuscular Volume 89.7 fL Mean Corpuscular Hemoglobin 27.4 pg Mean Corpuscular Hemoglobin Concent 30.6 g/dl Platelet Count 197 K/uL Mean Platelet Volume 9.3 fL Neutrophils (%) (Auto) 75.2 % Lymphocytes (%) (Auto) 10.5 % Monocytes (%) (Auto) 12.7 % Eosinophils (%) (Auto) 1.2 % Basophils (%) (Auto) 0.2 % Neutrophils # (Auto) 6.18 K/uL Lymphocytes # (Auto) 0.86 K/uL Monocytes # (Auto) 1.04 K/uL Eosinophils # (Auto) 0.10 K/uL Basophils # (Auto) 0.02 K/uL RDW Standard Deviation 42.9 fL RDW Coefficient of Variation 13.1 % Immature Granulocyte % (Auto) 0.2 % Immature Granulocyte # (Auto) 0.02 K/uL Prothrombin Time 10.9 SECONDS Prothromb Time International Ratio 1.0 Activated Partial Thromboplast Time 34.8 SECONDS Partial Thromboplastin Ratio 1.3 Arterial Blood pH 7.31 Arterial Blood Partial Pressure CO2 73 mmHg Arterial Blood Partial Pressure O2 46 mm/Hg Arterial Blood HCO3 36 mmol/L Arterial Blood Oxygen Saturation 80.5 % Arterial Blood Base Excess 7.3 mEq/L Arterial Blood Gas Delivery 45% William Test POS Sodium Level 134 mmol/L Potassium Level 4.2 mmol/L Chloride Level 96 mmol/L Carbon Dioxide Level 36 mmol/L Anion Gap 3.0 mmol/L Blood Urea Nitrogen 22 mg/dl Creatinine 1.33 mg/dl Est Creatinine Clear Calc Drug Dose 65.4 ml/min Estimated GFR () 63.2 Estimated GFR (Non- 54.5 BUN/Creatinine Ratio 16.7 Random Glucose 108 mg/dl Calcium Level 8.2 mg/dl Magnesium Level 1.9 mg/dl Total Bilirubin 0.5 mg/dl Direct Bilirubin 0.2 mg/dl Aspartate Amino Transf (AST/SGOT) 21 U/L Alanine Aminotransferase (ALT/SGPT) 38 U/L Alkaline Phosphatase 62 U/L Troponin I 0.027 ng/ml 0.032 ng/ml Total Protein 6.2 gm/dl Albumin 2.9 gm/dl Thyroid Stimulating Hormone (TSH) 0.909 uIu/ml Lactic Acid Level 1.0 mmol/L Pro-B-Type Natriuretic Peptide 1330 pg/ml Bedside Blood Gas pH (LAB) 7.24 Bedside Blood Gas pCO2 (LAB) 93 mmHg Bedside Blood Gas pO2 (LAB) 42 mmHg Bedside Blood Gas HCO3 (LAB) 40 meq/L Bedside Blood Gas Total CO2 > 40 mEq/l Bedside Blood Gas Base Excess (LAB) 12.0 meq/L Bedside Blood Gas O2 Saturation 65.0 % Bedside Glucose 115 mg/dl Test 09/04/17 00:11 09/04/17 00:15 09/04/17 04:51 09/04/17 05:31 Troponin I 0.029 ng/ml Bedside Glucose 167 mg/dl Blood Gas Sample Site L Radial Bedside Blood Gas pH (LAB) 7.22 Bedside Blood Gas pCO2 (LAB) 97 mmHg Bedside Blood Gas pO2 (LAB) 94 mmHg Bedside Blood Gas HCO3 (LAB) 40 meq/L Bedside Blood Gas Total CO2 > 40 mEq/l Bedside Blood Gas Base Excess (LAB) 12.0 meq/L Bedside Blood Gas O2 Saturation 94.0 % William Test Pass Oxygen Delivery Device BIPAP Bedside Oxygen Rate (breaths/min) 20 Bedside FiO2 50 % Blood Gas IPAP 16 White Blood Count 8.48 K/uL Red Blood Count 5.32 M/uL Hemoglobin 14.3 g/dL Hematocrit 48.3 % Mean Corpuscular Volume 90.8 fL Mean Corpuscular Hemoglobin 26.9 pg Mean Corpuscular Hemoglobin Concent 29.6 g/dl Platelet Count 157 K/uL Mean Platelet Volume 9.3 fL Neutrophils (%) (Auto) 82.9 % Lymphocytes (%) (Auto) 6.1 % Monocytes (%) (Auto) 10.6 % Eosinophils (%) (Auto) 0.2 % Basophils (%) (Auto) 0.1 % Neutrophils # (Auto) 7.02 K/uL Lymphocytes # (Auto) 0.52 K/uL Monocytes # (Auto) 0.90 K/uL Eosinophils # (Auto) 0.02 K/uL Basophils # (Auto) 0.01 K/uL RDW Standard Deviation 43.6 fL RDW Coefficient of Variation 13.1 % Immature Granulocyte % (Auto) 0.1 % Immature Granulocyte # (Auto) 0.01 K/uL Prothrombin Time 10.8 SECONDS Prothromb Time International Ratio 1.0 Activated Partial Thromboplast Time 43.6 SECONDS Partial Thromboplastin Ratio 1.7 Venous Blood pH 7.18 Venous Blood Partial Pressure CO2 107 mmHg Venous Blood Partial Pressure O2 37 mmHg Venous Blood HCO3 39 mmol/L Venous Blood Oxygen Saturation 62.6 % Venous Blood Base Excess 6.0 mEq/L Sodium Level 134 mmol/L Potassium Level 4.1 mmol/L Chloride Level 94 mmol/L Carbon Dioxide Level 39 mmol/L Anion Gap 1.0 mmol/L Blood Urea Nitrogen 23 mg/dl Creatinine 1.66 mg/dl Est Creatinine Clear Calc Drug Dose 52.8 ml/min Estimated GFR () 48.4 Estimated GFR (Non- 41.7 BUN/Creatinine Ratio 13.7 Random Glucose 110 mg/dl Calcium Level 8.6 mg/dl Phosphorus Level 4.4 mg/dl Magnesium Level 2.2 mg/dl Test 09/04/17 06:40 09/04/17 08:30 09/04/17 09:39 09/04/17 09:45 Urine Color YELLOW Urine Appearance CLEAR Urine pH 5.0 Urine Specific [place] 1.037 Urine Protein TRACE Urine Glucose (UA) NEG Urine Ketones NEG Urine Occult Blood 2+ Urine Nitrite NEG Urine Bilirubin NEG Urine Urobilinogen NEG Urine Leukocyte Esterase SMALL Urine WBC (Auto) 10-30 /hpf Urine RBC (Auto) >30 /hpf Urine Hyaline Casts (Auto) 1-5 /lpf Urine Epithelial Cells (Auto) 20-30 /lpf Urine Bacteria (Auto) NEG Troponin I 0.030 ng/ml Estimated Average Glucose 123 mg/dl Hemoglobin A1c 5.9 % Test 09/04/17 11:52 Activated Partial Thromboplast Time 60.7 SECONDS Partial Thromboplastin Ratio 2.3 Imaging: CT scan shows no pulmonary emboli Telemetry reviewed: Continued paroxysmal atrial fibrillation, heart rate is not excessively but is up from yesterday. Assessment and Plan #1. Atrial fibrillation: He has recently diagnosed atrial fibrillation, but I suspect he has had it before. He is unaware of it today in the ICU and he is in atrial fibrillation. Agree with continued use of amiodarone, it is not terribly effective at the moment but it was just started and it may become more effective over time and will probably be beneficial to him hemodynamically. He should be on anticoagulation over the long run as well. #2. Left ventricular dysfunction: He does seem to have some left ventricular dysfunction although it is not severe. It may however be contributing to his presentation. We need to be cautious about diuresis as he probably needs a reasonable preload to provide a reasonable cardiac output. We also need to be careful with beta-blockade. #3. Enlarged right heart: He seems to have pulmonary hypertension related to long-standing hypoxia and sleep apnea, no acute event such as pulmonary embolism to explain it. I don't know how reversible this is. Thank you for allowing me to participate in his care.
--- NOTE | 2017-09-04 13:10 | NUR ---
[place] line d/c'd at bedside by Dr Rios. Introducer remains in place. Heparin drip on hold per Dr Rios and will d/c introducer and restart Heparin in 3 hours.
--- NOTE | 2017-09-04 14:00 | NUR ---
Pt visiting with family at bedside. Denies any complaints. VS stable.
--- NOTE | 2017-09-04 14:04 | NUR ---
Consult received re: AHA diet education. Diet education and printed material provided to Pt and family re: AHA/Low Na+ diet. All verbalized understanding. Question adherence to diet with Pt, himself, but family seemed very interested in helping him make more positive changes to his diet. Name and number provided for any f/u questions. Will continue to monitor Pt's labs, weights, PO intake, need for additional education.
--- NOTE | 2017-09-04 14:56 | Critical Care Progress Note ---
Critical Care Progress Note Date of Service Sep 04, 2017. ICU Day ICU Day Number: [address] Rios Subjective Much improved today, sitting upright eating breakfast does not like the low- salt diet nor the fluid restriction Current SOFA Score SOFA Score Response (Comments) Value Platelets (x10) > 150 0 Bilirubin (mg/dL) < 1.2 0 [place] Coma Score 15 0 Level of Hypotension No Hypotension 0 Creatinine (mg/dL) 1.2 - 1.9 1 Total 1 Assessment & Plan (1) Pulmonary hypertension (2) Atrial flutter (3) Acute respiratory failure with hypoxia and hypercapnia PLAN: Resp: Pulse of factorial acute and chronic hypercarbic respiratory failure Likely has undiagnosed COPD Reviewed pulmonary recommendations Goal oxygen saturation between 80-92% CV: Atrial fibrillation * Amiodarone for possible rhythm control, currently rate controlled * Pulmonary hypertension likely related to left-sided dysfunction Fluids/Renal: Given trial of 20 mg of Lasix today with goal to be negative to even fluid balance ID: No evidence of active infection at this time GI/Nutrition: Tolerating diet, fluid restriction to 1200 ML's of fluid Heme: Systemic anticoagulation with heparin at this time Endocrine: Sugar well controlled Will discontinue right IJ introducer, I discontinued the [place] catheter early this afternoon. An extensive discussion with the patient and family with regard to dietary medication medication and lifestyle changes. He admits he is not very interested in the lifestyle changes, he also understands that this may shorten his life expectancy he does not participate in a low salt fluid restricted diet. Given these new findings he would appreciate a palliative care consult to further elucidate his goals of care as his natural course of his heart disease will progress. I've also placed a dietary consult to discuss further dietary modifications. I have discussed the case with the hospitalist physician, patient is stable for downgraded from ICU status to telemetry status Consults & Procedures Consultants: Cardiology Pulmonary Critical care medicine Procedures: Right heart cath 09/03/2017, [place] catheter discontinued and central line discontinued 09/04/2017 Data Medications: Current Inpatient Medications Medications (Trade) Dose Ordered Sig/Krissy Route Start Time Stop Time Status Last Admin Dose Admin Acetaminophen (Tylenol Tab) 650 mg Q4H PRN PO 09/03/17 13:30 10/03/17 13:29 09/04/17 00:09 650 MG Aspirin (Ecotrin Tab) 81 mg QAM PO 09/04/17 09:00 10/04/17 08:59 09/04/17 09:20 81 MG Levalbuterol (Xopenex 0.63 Mg/ 3 Ml Neb) 0.63 mg Q6R INH 09/03/17 15:00 10/03/17 14:59 09/04/17 14:23 0.63 MG Miscellaneous Information (Icu Protocol For Hyperglycemia) 1 ea PRN PRN N/A 09/03/17 16:30 09/05/17 16:29 Insulin Human Regular (novoLIN-R) SLIDING SCALE IF C... ACHS SC 09/03/17 21:00 10/03/17 20:59 09/04/17 13:15 1 UNITS Glucose (Glucose 40% Gel) 15-30 GRAMS 15 GRAMS... UD PRN PO 09/03/17 16:30 10/03/17 16:29 Glucose (Glucose Chew Tab) 4-8 Tablets 4 Tabl... UD PRN PO 09/03/17 16:30 10/03/17 16:29 Dextrose (Dextrose 50% 50ML Syringe) 25-50ML OF 50% DW IV FOR... UD PRN IV 09/03/17 16:30 10/03/17 16:29 Glucagon (Glucagon Inj) 1 mg UD PRN SQ 09/03/17 16:30 10/03/17 16:29 Ioversol (Optiray 320) 100 ml UD PRN IV 09/03/17 17:30 09/07/17 17:29 Milrinone Lactate/ Dextrose 42498 mcg/Prmx 100 ml @ 0 mls/hr Q0M PRN IV 09/03/17 18:07 10/03/17 18:06 Phenylephrine HCl 20 mg/Dextrose 502 ml @ 0 mls/hr Q0M PRN IV 09/03/17 18:10 10/03/17 18:09 Cyanocobalamin (Vitamin B-12 Tab) 500 mcg DAILY PO 09/04/17 09:00 10/04/17 08:59 09/04/17 09:20 500 MCG Heparin Sodium/ Dextrose 500 ml @ 22 mls/hr [id number] PRN IV 09/03/17 23:45 10/03/17 23:44 09/03/17 23:57 20 MLS/HR Amiodarone HCL/ Dextrose 200 ml @ 16.7 mls/hr [id number] IV 09/04/17 06:00 10/04/17 05:59 09/04/17 05:13 16.7 MLS/HR Vital Signs: Date Time Temp Pulse Resp B/P (MAP) Pulse Ox O2 Delivery O2 Flow Rate FiO2 09/04/17 14:23 105 20 96 Nasal Cannula 6.0 09/04/17 12:00 37.4 100 22 145/67 (93) 94 Nasal Cannula 6.0 09/04/17 12:00 Nasal Cannula 6.0 09/04/17 10:00 89 22 119/67 (84) 95 Oxymask 8.0 09/04/17 08:00 BiPAP 50 09/04/17 08:00 37.2 87 21 136/77 (96) 94 BiPAP 50 09/04/17 07:34 82 100 50 09/04/17 07:34 82 22 100 BiPAP/CPAP 50 09/04/17 06:01 96 16 57/19 (34) 98 122/82 09/04/17 05:32 95 12 50/25 (35) 99 120/80 09/04/17 05:13 82 19 50/24 (35) 96 109/65 09/04/17 05:10 86 97 50 09/04/17 05:02 83 20 44/19 (29) 92 98/66 09/04/17 04:47 92 14 68/37 (52) 96 09/04/17 04:32 82 18 53/22 (34) 97 120/69 (70) 09/04/17 04:18 81 15 45/19 (29) 98 09/04/17 04:01 37.0 79 19 56/20 (35) 96 134/83 (90) 09/04/17 04:00 BiPAP 50 09/04/17 03:48 83 20 55/17 (33) 96 09/04/17 03:31 80 22 51/14 (94) 97 119/69 (94) 09/04/17 03:18 45 18 60/14 (30) 98 09/04/17 03:03 82 20 50/15 (31) 97 127/70 (75) 09/04/17 02:47 83 16 49/18 (30) 97 108/69 (80) 09/04/17 02:17 81 21 47/17 (30) 98 09/04/17 02:01 81 19 50/10 (29) 98 139/76 (90) 09/04/17 01:47 82 14 50/14 (30) 99 09/04/17 01:43 83 20 97 BiPAP/CPAP 50 09/04/17 01:43 83 97 50 09/04/17 01:31 89 23 61/17 (104) 96 129/86 (104) 09/04/17 01:17 86 21 57/16 (31) 98 09/04/17 01:02 87 21 53/11 (32) 99 122/62 (83) 09/04/17 00:47 91 18 52/19 (34) 97 09/04/17 00:31 84 19 55/11 (33) 98 131/78 (84) 09/04/17 00:17 88 15 52/8 (27) 99 09/04/17 00:02 86 18 48/14 (28) 98 115/77 09/04/17 00:02 37.6 86 18 48/14 (28) 98 115/77 (90) 09/04/17 00:01 97 19 51/13 (30) 98 09/04/17 00:01 BiPAP 50 09/03/17 23:46 82 17 44/16 (28) 98 09/03/17 23:31 97 17 58/29 (40) 98 123/76 09/03/17 23:16 91 15 50/25 (33) 99 09/03/17 23:02 98 20 48/22 (30) 99 113/80 09/03/17 23:01 90 17 62/30 (42) 97 09/03/17 23:01 90 17 48/23 (33) 97 113/80 (93) 09/03/17 22:35 88 24 58/21 (36) 89 101/53 (70) 09/03/17 22:02 105 20 54/22 (34) 80 114/60 (84) 09/03/17 21:32 102 18 55/28 (39) 97 122/72 09/03/17 21:04 82 21 53/20 (35) 98 09/03/17 21:02 80 15 48/20 (30) 98 127/58 (96) 09/03/17 20:49 76 20 48/19 (29) 96 09/03/17 20:45 83 17 56/27 (37) 96 09/03/17 20:31 73 13 47/20 (29) 97 112/72 (90) 09/03/17 20:30 67 20 51/24 (33) 98 09/03/17 20:15 54 19 45/21 (29) 99 09/03/17 20:15 84 31 96 BiPAP/CPAP 50 09/03/17 20:14 84 96 50 09/03/17 20:03 37.8 76 23 52/21 (31) 95 108/56 (77) 09/03/17 20:00 BiPAP 50 09/03/17 19:59 77 27 55/18 (30) 80 110/59 (81) 09/03/17 19:45 91 22 54/22 (33) 92 09/03/17 19:30 76 18 58/24 (35) 89 09/03/17 19:29 80 28 55/20 (32) 92 119/68 09/03/17 19:02 60 16 142/70 (94) 98 Mask 4 09/03/17 17:45 80 18 104/61 (75) 95 Oxymask 5.0 09/03/17 17:30 37.1 84 20 105/65 (78) 90 Nasal Cannula 4.0 09/03/17 16:00 96 BiPAP 09/03/17 15:59 78/48 (58) 09/03/17 15:39 57 69/45 (53) 09/03/17 15:21 37.0 73 20 77/53 (61) 98 BiPAP Laboratory Results: Last 24 Hours Test 09/03/17 17:51 09/03/17 18:55 09/03/17 21:15 09/04/17 00:11 Lactic Acid Level 1.0 mmol/L Troponin I 0.032 ng/ml 0.029 ng/ml Pro-B-Type Natriuretic Peptide 1330 pg/ml Bedside Blood Gas pH (LAB) 7.24 Bedside Blood Gas pCO2 (LAB) 93 mmHg Bedside Blood Gas pO2 (LAB) 42 mmHg Bedside Blood Gas HCO3 (LAB) 40 meq/L Bedside Blood Gas Total CO2 > 40 mEq/l Bedside Blood Gas Base Excess (LAB) 12.0 meq/L Bedside Blood Gas O2 Saturation 65.0 % Bedside Glucose 115 mg/dl Test 09/04/17 00:15 09/04/17 04:51 09/04/17 05:31 09/04/17 06:40 Bedside Glucose 167 mg/dl Blood Gas Sample Site L Radial Bedside Blood Gas pH (LAB) 7.22 Bedside Blood Gas pCO2 (LAB) 97 mmHg Bedside Blood Gas pO2 (LAB) 94 mmHg Bedside Blood Gas HCO3 (LAB) 40 meq/L Bedside Blood Gas Total CO2 > 40 mEq/l Bedside Blood Gas Base Excess (LAB) 12.0 meq/L Bedside Blood Gas O2 Saturation 94.0 % William Test Pass Oxygen Delivery Device BIPAP Bedside Oxygen Rate (breaths/min) 20 Bedside FiO2 50 % Blood Gas IPAP 16 White Blood Count 8.48 K/uL Red Blood Count 5.32 M/uL Hemoglobin 14.3 g/dL Hematocrit 48.3 % Mean Corpuscular Volume 90.8 fL Mean Corpuscular Hemoglobin 26.9 pg Mean Corpuscular Hemoglobin Concent 29.6 g/dl Platelet Count 157 K/uL Mean Platelet Volume 9.3 fL Neutrophils (%) (Auto) 82.9 % Lymphocytes (%) (Auto) 6.1 % Monocytes (%) (Auto) 10.6 % Eosinophils (%) (Auto) 0.2 % Basophils (%) (Auto) 0.1 % Neutrophils # (Auto) 7.02 K/uL Lymphocytes # (Auto) 0.52 K/uL Monocytes # (Auto) 0.90 K/uL Eosinophils # (Auto) 0.02 K/uL Basophils # (Auto) 0.01 K/uL RDW Standard Deviation 43.6 fL RDW Coefficient of Variation 13.1 % Immature Granulocyte % (Auto) 0.1 % Immature Granulocyte # (Auto) 0.01 K/uL Prothrombin Time 10.8 SECONDS Prothromb Time International Ratio 1.0 Activated Partial Thromboplast Time 43.6 SECONDS Partial Thromboplastin Ratio 1.7 Venous Blood pH 7.18 Venous Blood Partial Pressure CO2 107 mmHg Venous Blood Partial Pressure O2 37 mmHg Venous Blood HCO3 39 mmol/L Venous Blood Oxygen Saturation 62.6 % Venous Blood Base Excess 6.0 mEq/L Sodium Level 134 mmol/L Potassium Level 4.1 mmol/L Chloride Level 94 mmol/L Carbon Dioxide Level 39 mmol/L Anion Gap 1.0 mmol/L Blood Urea Nitrogen 23 mg/dl Creatinine 1.66 mg/dl Est Creatinine Clear Calc Drug Dose 52.8 ml/min Estimated GFR () 48.4 Estimated GFR (Non- 41.7 BUN/Creatinine Ratio 13.7 Random Glucose 110 mg/dl Calcium Level 8.6 mg/dl Phosphorus Level 4.4 mg/dl Magnesium Level 2.2 mg/dl Urine Color YELLOW Urine Appearance CLEAR Urine pH 5.0 Urine Specific [place] 1.037 Urine Protein TRACE Urine Glucose (UA) NEG Urine Ketones NEG Urine Occult Blood 2+ Urine Nitrite NEG Urine Bilirubin NEG Urine Urobilinogen NEG Urine Leukocyte Esterase SMALL Urine WBC (Auto) 10-30 /hpf Urine RBC (Auto) >30 /hpf Urine Hyaline Casts (Auto) 1-5 /lpf Urine Epithelial Cells (Auto) 20-30 /lpf Urine Bacteria (Auto) NEG Test 09/04/17 08:30 09/04/17 09:39 09/04/17 09:45 09/04/17 11:52 Troponin I 0.030 ng/ml Estimated Average Glucose 123 mg/dl Hemoglobin A1c 5.9 % Influenza Type A (RT-PCR) Neg for Influ A Influenza Type B (RT-PCR) Neg for Influ B Activated Partial Thromboplast Time 60.7 SECONDS Partial Thromboplastin Ratio 2.3
--- NOTE | 2017-09-04 16:00 | NUR ---
A: Assessment completed and charted. See EMR for full details. Patient resting in bed at this time. Denies pain or discomfort. Maintaining O2 sats on 6 L NC. A Fib/Flutter on the monitor. Patient able to self position in bed. Amiodarone gtt infusing per MD order. Will continue to monitor.
--- NOTE | 2017-09-04 16:40 | NUR ---
A: Right IJ central line removed per MD. Pressure held for 15 minutes, no bleeding or bruising noted. Pressure dressing applied to area. Patient tolerated removal well. Placed on 15 liter Oxymask for removal and placed back on 6 L NC at this time. Will continue to monitor.
--- NOTE | 2017-09-04 18:00 | NUR ---
A: Patient resting in bed at this time. Denies pain or discomfort. Heparin gtt restarted at this time per Dr Rios. Call vanessa in reach. Encouraged to ring for assistance. Will continue to monitor.
[2017-09-04] MEDS ORDERED: EPINASTINE OP SCH (20:00)
[2017-09-04] MEDS: EPINASTINE OP SCH (20:59)
--- NOTE | 2017-09-04 21:39 | Hospitalist Progress Note ---
Hospitalist Progress Note Date of Service Sep 04, 2017. Subjective Pt evaluation today including: conversation w/ patient, conversation w/ family , physical exam, lab review, conversation w/ design and sales consultant (flour mixer helper) Voiding: pina catheter in place Patient denies any problems today. We had a 30 minute discussion at the bedside with the patient and his family members about his diagnoses, prognosis, and treatment plan. The patient reports that he does not think he'll be able to follow any sort of fluid restriction and low sodium diet at home. He also does not want to give up his beer drinking or smoking habits. He is interested in the palliative care consult. At this time, he would like to remain full code. -I discussed the case in depth with the flour mixer helper today-his ABG appeared worse this morning, but he is fairly well chronically compensated. He was given IV Lasix 1 this morning with decent urine output. He is agreeable to wearing the BiPAP as needed during the day during naps and continuously at nighttime. Constitutional: No fever Respiratory: + dyspnea on exertion Cardiovascular: No chest pain All Other Systems: Reviewed and Negative Objective Vital Signs Date Time Temp Pulse Resp B/P (MAP) Pulse Ox O2 Delivery O2 Flow Rate FiO2 09/04/17 20:11 37.4 106 19 97 6.0 09/04/17 20:02 37.4 106 19 139/79 (99) 97 Nasal Cannula 6.0 09/04/17 20:00 Nasal Cannula 6.0 09/04/17 19:53 105 18 93 Nasal Cannula 6.0 09/04/17 19:02 100 19 121/76 (91) 91 Nasal Cannula 6.0 09/04/17 18:01 106 19 112/66 (81) 90 Nasal Cannula 6.0 09/04/17 17:16 131 19 128/72 (90) 91 Nasal Cannula 6.0 09/04/17 17:01 99 27 113/79 (90) 91 Nasal Cannula 6.0 09/04/17 16:47 120 17 118/74 (89) 93 Nasal Cannula 6.0 09/04/17 16:31 95 20 129/74 (92) 92 Nasal Cannula 6.0 09/04/17 16:17 94 25 114/69 (84) 100 Oxymask 15.0 09/04/17 16:02 37.7 107 18 107/60 (76) 96 Nasal Cannula 6.0 09/04/17 16:00 Nasal Cannula 6.0 09/04/17 15:01 102 17 126/74 (91) 93 Nasal Cannula 6.0 09/04/17 14:23 105 20 96 Nasal Cannula 6.0 09/04/17 14:00 104 22 117/87 (97) 96 Nasal Cannula 6.0 09/04/17 12:00 37.4 100 22 145/67 (93) 94 Nasal Cannula 6.0 09/04/17 12:00 Nasal Cannula 6.0 09/04/17 10:00 89 22 119/67 (84) 95 Oxymask 8.0 09/04/17 08:00 BiPAP 50 09/04/17 08:00 37.2 87 21 136/77 (96) 94 BiPAP 50 09/04/17 07:34 82 100 50 09/04/17 07:34 82 22 100 BiPAP/CPAP 50 09/04/17 06:01 96 16 57/19 (34) 98 122/82 09/04/17 05:32 95 12 50/25 (35) 99 120/80 09/04/17 05:13 82 19 50/24 (35) 96 109/65 09/04/17 05:10 86 97 50 09/04/17 05:02 83 20 44/19 (29) 92 98/66 09/04/17 04:47 92 14 68/37 (52) 96 09/04/17 04:32 82 18 53/22 (34) 97 120/69 (70) 09/04/17 04:18 81 15 45/19 (29) 98 09/04/17 04:01 37.0 79 19 56/20 (35) 96 134/83 (90) 09/04/17 04:00 BiPAP 50 09/04/17 03:48 83 20 55/17 (33) 96 09/04/17 03:31 80 22 51/14 (94) 97 119/69 (94) 09/04/17 03:18 45 18 60/14 (30) 98 09/04/17 03:03 82 20 50/15 (31) 97 127/70 (75) 09/04/17 02:47 83 16 49/18 (30) 97 108/69 (80) 09/04/17 02:17 81 21 47/17 (30) 98 09/04/17 02:01 81 19 50/10 (29) 98 139/76 (90) 09/04/17 01:47 82 14 50/14 (30) 99 09/04/17 01:43 83 20 97 BiPAP/CPAP 50 09/04/17 01:43 83 97 50 09/04/17 01:31 89 23 61/17 (104) 96 129/86 (104) 09/04/17 01:17 86 21 57/16 (31) 98 09/04/17 01:02 87 21 53/11 (32) 99 122/62 (83) 09/04/17 00:47 91 18 52/19 (34) 97 09/04/17 00:31 84 19 55/11 (33) 98 131/78 (84) 09/04/17 00:17 88 15 52/8 (27) 99 09/04/17 00:02 86 18 48/14 (28) 98 115/77 09/04/17 00:02 37.6 86 18 48/14 (28) 98 115/77 (90) 09/04/17 00:01 97 19 51/13 (30) 98 09/04/17 00:01 BiPAP 50 09/03/17 23:46 82 17 44/16 (28) 98 09/03/17 23:31 97 17 58/29 (40) 98 123/76 09/03/17 23:16 91 15 50/25 (33) 99 09/03/17 23:02 98 20 48/22 (30) 99 113/80 09/03/17 23:01 90 17 62/30 (42) 97 09/03/17 23:01 90 17 48/23 (33) 97 113/80 (93) 09/03/17 22:35 88 24 58/21 (36) 89 101/53 (70) 09/03/17 22:02 105 20 54/22 (34) 80 114/60 (84) 09/03/17 21:32 102 18 55/28 (39) 97 122/72 Physical Exam General Appearance: no apparent distress, + obese Eyes: normal inspection, sclerae normal ENT: hearing grossly normal Neck: trachea midline Respiratory/Chest: no respiratory distress, no accessory muscle use, + decreased breath sounds (throughout, decreased breath sounds at the bases,) Cardiovascular: no murmur, + irregularly irregular (with mild tachycardia), + pertinent finding (trace pitting edema of the legs to the mid tibia bilaterally) Abdomen: normal bowel sounds, non tender, soft (and morbidly obese) Extremities: no calf tenderness Neurologic/Psychiatric: alert, normal mood/affect, oriented x 3 Skin: warm/dry, no rash Laboratory Results Last 24 Hours Test 09/04/17 00:11 09/04/17 00:15 09/04/17 04:51 09/04/17 05:31 Troponin I 0.029 ng/ml Bedside Glucose 167 mg/dl Blood Gas Sample Site L Radial Bedside Blood Gas pH (LAB) 7.22 Bedside Blood Gas pCO2 (LAB) 97 mmHg Bedside Blood Gas pO2 (LAB) 94 mmHg Bedside Blood Gas HCO3 (LAB) 40 meq/L Bedside Blood Gas Total CO2 > 40 mEq/l Bedside Blood Gas Base Excess (LAB) 12.0 meq/L Bedside Blood Gas O2 Saturation 94.0 % William Test Pass Oxygen Delivery Device BIPAP Bedside Oxygen Rate (breaths/min) 20 Bedside FiO2 50 % Blood Gas IPAP 16 White Blood Count 8.48 K/uL Red Blood Count 5.32 M/uL Hemoglobin 14.3 g/dL Hematocrit 48.3 % Mean Corpuscular Volume 90.8 fL Mean Corpuscular Hemoglobin 26.9 pg Mean Corpuscular Hemoglobin Concent 29.6 g/dl Platelet Count 157 K/uL Mean Platelet Volume 9.3 fL Neutrophils (%) (Auto) 82.9 % Lymphocytes (%) (Auto) 6.1 % Monocytes (%) (Auto) 10.6 % Eosinophils (%) (Auto) 0.2 % Basophils (%) (Auto) 0.1 % Neutrophils # (Auto) 7.02 K/uL Lymphocytes # (Auto) 0.52 K/uL Monocytes # (Auto) 0.90 K/uL Eosinophils # (Auto) 0.02 K/uL Basophils # (Auto) 0.01 K/uL RDW Standard Deviation 43.6 fL RDW Coefficient of Variation 13.1 % Immature Granulocyte % (Auto) 0.1 % Immature Granulocyte # (Auto) 0.01 K/uL Prothrombin Time 10.8 SECONDS Prothromb Time International Ratio 1.0 Activated Partial Thromboplast Time 43.6 SECONDS Partial Thromboplastin Ratio 1.7 Venous Blood pH 7.18 Venous Blood Partial Pressure CO2 107 mmHg Venous Blood Partial Pressure O2 37 mmHg Venous Blood HCO3 39 mmol/L Venous Blood Oxygen Saturation 62.6 % Venous Blood Base Excess 6.0 mEq/L Sodium Level 134 mmol/L Potassium Level 4.1 mmol/L Chloride Level 94 mmol/L Carbon Dioxide Level 39 mmol/L Anion Gap 1.0 mmol/L Blood Urea Nitrogen 23 mg/dl Creatinine 1.66 mg/dl Est Creatinine Clear Calc Drug Dose 52.8 ml/min Estimated GFR () 48.4 Estimated GFR (Non- 41.7 BUN/Creatinine Ratio 13.7 Random Glucose 110 mg/dl Calcium Level 8.6 mg/dl Phosphorus Level 4.4 mg/dl Magnesium Level 2.2 mg/dl Test 09/04/17 06:40 09/04/17 08:30 09/04/17 09:39 09/04/17 09:45 Urine Color YELLOW Urine Appearance CLEAR Urine pH 5.0 Urine Specific Atlas 1.037 Urine Protein TRACE Urine Glucose (UA) NEG Urine Ketones NEG Urine Occult Blood 2+ Urine Nitrite NEG Urine Bilirubin NEG Urine Urobilinogen NEG Urine Leukocyte Esterase SMALL Urine WBC (Auto) 10-30 /hpf Urine RBC (Auto) >30 /hpf Urine Hyaline Casts (Auto) 1-5 /lpf Urine Epithelial Cells (Auto) 20-30 /lpf Urine Bacteria (Auto) NEG Troponin I 0.030 ng/ml Estimated Average Glucose 123 mg/dl Hemoglobin A1c 5.9 % Influenza Type A (RT-PCR) Neg for Influ A Influenza Type B (RT-PCR) Neg for Influ B Test 09/04/17 11:45 09/04/17 11:52 09/04/17 16:28 Bedside Glucose 105 mg/dl 139 mg/dl Activated Partial Thromboplast Time 60.7 SECONDS Partial Thromboplastin Ratio 2.3 Assessment and Plan This patient is a 67-year-old male with a history of hypertension, obesity, secondary polycythemia, who presented as a direct transfer from [facility] with new onset atrial flutter with RVR, acute on likely chronic hypercapnic and hypoxemic respiratory failure, and newly diagnosed systolic CHF. He reports he went to his PCP for his annual physical the morning of admission and his doctor noted a rapid heartbeat and called an ambulance for him. He was feeling weak at the time, but denied palpitations, lightheadedness , or chest pain. Upon arrival at [facility], he was in rapid atrial flutter with a 2-1 block and a heart rate of 145 bpm. He was bolused with IV Cardizem and placed on a Cardizem drip. He spontaneously converted to normal sinus rhythm, but then reverted to atrial fibrillation with a normal rate upon arrival to [facility]. He recently had his outpatient dose of metoprolol lowered to 25 mg by mouth twice a day due to lightheadedness. It was increased to 50 mg twice a day at [facility], but he became severely hypotensive requiring transfer to the intensive care unit shortly after arrival here. The metoprolol has since been held. His echo at [facility] showed an EF of 45%, with some global hypokinesis, but was otherwise normal. His initial chest x-ray was read as normal, but a repeat chest x-ray this morning showed developing signs of pulmonary vascular congestion and was consistent with acute CHF. He was persistently hypoxic there and an ABG was obtained which showed pH 7.26/PA CO2 86/PaO2 40. He was placed on BiPAP at that time, and repeat ABG was almost exactly the same, except his PaO2 had increased to 70. He is a previous smoker, he is obese, and has a thick neck. There is suspicion for undiagnosed REMBERTO. He is also a previous heavy smoker and continues to smoke 1 cigarette a day-he also may have undiagnosed COPD. He was given 1 dose of Lasix IV 40 mg 1 and a Pina catheter was placed prior to transfer to [facility]. After transfer to the intensive care unit here, he had a [place] catheter placed and had evidence of pulmonary hypertension as well as left-sided diastolic and systolic heart failure. Paroxysmal atrial fibrillation/flutter with RVR-his blood pressure did not tolerate metoprolol 50 mg, but now rates are in the low 100s. Has stabilized with his blood pressure now and can be transferred out of the intensive care unit -Transfer back to telemetry unit -Is on amiodarone drip as per cardiology-we'll likely transition to by mouth amiodarone tomorrow -Consider putting back on low dose of metoprolol versus by mouth diltiazem -Consult cardiology appreciated -Continue full dose anticoagulation with heparin drip for now-will need to go on either Coumadin or NOAC-will discuss with patient -Treatment of suspected REMBERTO as below Acute on chronic hypercapnic and hypoxemic respiratory failure/suspect undiagnosed COPD and REMBERTO/Obesity hypoventilation syndrome/Current smoker/Pulm HTN. -Continues on BiPAP intermittently throughout the day as well as continuously at nighttime. Seen by pulmonology and recommended increasing BiPAP settings to 20/6. ABG today still at pH 7.2 to/PaCO2 97/PaO2 94, serum bicarbonate is elevated at 39. -Continue BiPAP 20/6 continuously at nighttime and when necessary in the daytime during naps -Check ABG again in the morning -He will definitely need BiPAP at nighttime upon discharge and we'll get overnight oximetry with ABG the following morning within 48 hours of discharge -Consult pulmonology appreciated - will need follow-up with sleep medicine as an outpatient as well as formal PFTs -Continue nebulizers for decreased breath sounds and hypoxemia -Counseled on smoking cessation HTN/Acute newly diagnosed combined systolic and diastolic CHF/Pulm HTN/right- sided heart failure-likely secondary to his untreated severe REMBERTO and OHS, as well as COPD. Not likely to be ischemic. ECHO with : * Normal LV chamber size with moderate concentric LVH. * Mildly reduced LV systolic function with D shaped septum and flattened septal motion consistent with RV pressure/volume overload, EF 45-50%. * Severely dilated RV chamber size with severely reduced RV systolic function. * Akinesis of the RV free wall with preserved funciton of RV apical wall motion. * No significant valvular pathology. * TR jet inadequate to accurately calculate PASP. * Mild biatrial enlargement. Serial troponins negative at outside facility -Holding lisinopril and metoprolol due to hypotension -continue aspirin -Was given Lasix 40 g IV 1 this morning again but with caution as creatinine is increased to 1.66-will reassess in the morning if he needs more diuresis -Cardiology warns to not over diurese as he is dependent on preload for good cardiac output -Follow PRP for renal function and electrolytes -Treatment with BiPAP for REMBERTO/OHS as above -Discussed fluid restriction, low sodium diet, and eventually should have referral to pulmonary rehabilitation and weight loss program in the future -Discussed abstinence from alcohol and smoking cessation-he has not committed to either at this time -Patient desires palliative care consultation to help establish goals of care as he is not keen on the lifestyle recommendations for CHF MARÍA ELENA in the setting of chronic kidney disease unknown stage-creatinine increased to 1.66 today after receiving Lasix yesterday -Follow PRP -Renally dose all medications -Avoiding nephrotoxins -Holding lisinopril for now Secondary Polycythemia-hemoglobin is 15 at outside hospital, has received multiple phlebotomies in the past, but is likely secondary to smoking -Follow CBC Prophylaxis-Heparin drip Disposition-to home when medically stable Full code but does not desire prolonged life support if prognosis is very poor- palliative care consultation requested for tomorrow
[2017-09-05] VITALS (10 sets, daily range): BP systolic 115–161; BP diastolic 62–88; PULSE 45–106; TEMP 36.6–37.4; O2SAT 90–98
--- NOTE | 2017-09-05 | NUR ---
A: Patient assessment completed at this time. A. fib on monitor. See EMR for full assessment. Denies pain at this time. Werner intact. Amio gtt and Heparin gtt infusing as ordered/per protocol. Bipap on and tolerating well. D/C uncertain.
[2017-09-05 00:31] LABS: PTT PATIENT 43.5 SECONDS (21.0-31.0)
[2017-09-05] MEDS ORDERED: HEPARIN IV BOLUS 4,000 UNIT in SYRINGE 0 ML IV ONE (01:00)
[2017-09-05] MEDS: HEPARIN 25,000 UNIT/500ML D5W 500 ML IV PRN ×2 (01:00→04:14)
[2017-09-05] MEDS: LEVALBUTEROL 0.63MG/3 ML NEB INH SCH ×4 (01:43→19:14)
[2017-09-05] MEDS: ACETAMINOPHEN 325 MG TAB PO PRN (03:01)
[2017-09-05] MEDS: AMIODARONE / D5W 200 ML IV SCH (05:47)
[2017-09-05 07:31] LABS: HEMATOCRIT 44.2 % (42-52); HEMOGLOBIN 13.4 g/dL (14.0-18.0); MEAN CELL VOLUME 88.9 fL (80-100); MEAN PLATELET VOLUME 9.4 fL (7.4-10.4); PLATELET COUNT 133 K/uL (130-400); RED CELL DISTRIBUTION WIDTH CV 12.8 % (11.5-14.5); RED CELL DISTRIBUTION WIDTH SD 41.1 fL (36.4-46.3); WHITE BLOOD COUNT 8.34 K/uL (4.8-10.8)
[2017-09-05 07:36] LABS: MEAN CORPUSCULAR HGB CONC 30.3 g/dl (32-36)
[2017-09-05 07:49] LABS: PTT PATIENT 56.3 SECONDS (21.0-31.0)
--- NOTE | 2017-09-05 08:00 | NUR ---
A: denies complaints at present. OOB to chair with assist of one. O2 at 6lpm via nc and humdified. noted to desat to upper 70s while lying in bed and sleeping. nc had moved from nares. once nc replaced, sat quickly up to low 90s. otherwise no acute respiratory distress noted. 18 jelco LAC removed d/t positional. cath intact, site clear, dry dressing applied. 18 jelco inserted left hand, good blood return, flushed easily. Amio infusing at 16.7ml/hr via this site. Heparin drip at 24ml/hr via 18 jelco left FA, site clear. pina patent clear yellow urine. consumed 100% breakfast.
[2017-09-05 08:06] LABS: CALCIUM 8.3 mg/dl (8.5-10.1); CREATININE 1.08 mg/dl (0.60-1.40); POTASSIUM 3.8 mmol/L (3.5-5.1)
[2017-09-05] MEDS: ASPIRIN 81 MG ECTAB PO SCH (08:19)
[2017-09-05] MEDS: EPINASTINE OP SCH ×2 (08:19→19:53)
[2017-09-05] MEDS: CYANOCOBALAMIN 500 MCG TAB (VIT B-12) PO SCH (08:19)
[2017-09-05] MEDS ORDERED: POTASSIUM CHLORIDE 10 MEQ TABCR PO STA (09:06)
[2017-09-05] MEDS ORDERED: FUROSEMIDE INJ 40 MG in SYRINGE 0 ML IV STA (09:13)
[2017-09-05] MEDS ORDERED: METOPROLOL TARTRATE 25 MG TAB PO STA (09:45)
[2017-09-05] MEDS ORDERED: AMIODARONE 200 MG TAB PO ONE (09:45)
--- NOTE | 2017-09-05 10:28 | Cardiology Follow-Up ---
Subjective Date of Service: Sep 05, 2017. Pt evaluation today including: conversation w/ patient, conversation w/ family , physical exam, lab review, review of inpatient medication list, conversation w / attending History of Present Illness This is a 67-year-old gentleman who was transferred here today for treatment of newly diagnosed atrial fibrillation and hypoxia. He had evidently gone to his physician's office for a routine visit on 09/02/2017, was noted to have a rapid heart rate and was sent to the hospital. He was observed to be in atrial flutter with 2-1 AV conduction, he is treated with intravenous diltiazem and subsequently spontaneously converted to sinus rhythm. He had been on metoprolol 25 mg twice a day as an outpatient, this was increased to 50 mg twice a day on admission. He was subsequently transferred here for treatment. At the time of my initial evaluation he had been here for several hours, and although he came in sinus rhythm he had reverted to atrial fibrillation with a controlled heart rate. His blood pressure was low however he was conversational and he was on CPAP. He describes feeling symptoms of shortness of breath for several months, he was unaware of having atrial fibrillation, but he recalls having symptoms similar to it (which is a fluttering in his chest) in the past, although he is little bit vague about the duration. It sounds as though it was probably about 3 months, but intermittently. He is not very active but the only thing he noticed was he would get short of breath with activities for several months and that may have been progressive. He does not recall having peripheral edema, he does not have exertional chest discomfort. Due to hypotension and uncertainty as to the cause was transferred down to the ICU, his echocardiogram showed poor RV function and a CAT scan did not show pulmonary emboli. A [place] catheter showed pulmonary hypertension with some left ventricular end-diastolic elevated pressure. He is on amiodarone for his atrial arrhythmia. He says he is feeling better, he is not short of breath. He is sitting at the bedside on nasal oxygen. He is not having palpitations, he denies orthopnea or PND but does have difficulty with oxygenation at night. Social History Smoking Status: Current Every Day Smoker History of Alcohol Use: Yes Review of Systems Respiratory: + dyspnea on exertion Cardiac: No chest pain Medications Cardiovascular: Item Value Date Time Aspirin 81 mg 09/04/17 0900 (Ecotrin Tab) QAM/PO 09/05/17 0819 Amiodarone HCL/ 200 ml @ 16.7 mls/hr 09/04/17 0600 Dextrose .[id number] 09/05/17 0547 Heparin Sodium/ 500 ml @ 24 mls/hr 09/03/17 2345 Dextrose .[id number] PRN/IV 09/05/17 0414 Objective Vital Signs Past 12 Hours Date Time Temp Pulse Resp B/P (MAP) Pulse Ox O2 Delivery O2 Flow Rate FiO2 09/05/17 07:48 36.6 76 20 144/82 (102) 92 Nasal Cannula 5.0 09/05/17 06:58 92 18 96 Nasal Cannula 6.0 09/05/17 04:00 BiPAP 09/05/17 03:35 37.1 80 19 122/62 (82) 94 CPAP 40 80 09/05/17 01:44 96 18 98 Nasal Cannula 6.0 09/05/17 00:19 BiPAP 09/04/17 23:45 37.6 99 22 126/74 (91) 98 CPAP 40 09/04/17 22:36 98 96 40 Last Recorded Weight-Kilograms: 113.800 Physical Exam Constitutional: General Apperance: obese Level of Distress: mild distress, acutely ill Lungs: Respiratory effort: good air movement Auscultation: no wheezing, no rales/crackles, deminished air movement Cardiovascular: Heart Auscultation: no murmurs, no rubs, no gallops, irregular rate rhythm Peripheral Pulses: Bruits: none appreciated Data Laboratory Results: Last 24 Hours Test 09/04/17 11:45 09/04/17 11:52 09/04/17 16:28 09/05/17 00:10 Bedside Glucose 105 mg/dl 139 mg/dl Activated Partial Thromboplast Time 60.7 SECONDS 43.5 SECONDS Partial Thromboplastin Ratio 2.3 1.7 Test 09/05/17 07:13 White Blood Count 8.34 K/uL Red Blood Count 4.97 M/uL Hemoglobin 13.4 g/dL Hematocrit 44.2 % Mean Corpuscular Volume 88.9 fL Mean Corpuscular Hemoglobin 27.0 pg Mean Corpuscular Hemoglobin Concent 30.3 g/dl RDW Standard Deviation 41.1 fL RDW Coefficient of Variation 12.8 % Platelet Count 133 K/uL Mean Platelet Volume 9.4 fL Prothrombin Time 10.8 SECONDS Prothromb Time International Ratio 1.0 Activated Partial Thromboplast Time 56.3 SECONDS Partial Thromboplastin Ratio 2.2 Arterial Blood pH 7.29 Arterial Blood Partial Pressure CO2 81 mmHg Arterial Blood Partial Pressure O2 60 mm/Hg Arterial Blood HCO3 38 mmol/L Arterial Blood Oxygen Saturation 88.3 % Arterial Blood Base Excess 8.5 mEq/L Arterial Blood Gas Delivery FIO2 40% William Test POS Sodium Level 134 mmol/L Potassium Level 3.8 mmol/L Chloride Level 94 mmol/L Carbon Dioxide Level 38 mmol/L Anion Gap 2.0 mmol/L Blood Urea Nitrogen 16 mg/dl Creatinine 1.08 mg/dl Est Creatinine Clear Calc Drug Dose 81.4 ml/min Estimated GFR () 81.3 Estimated GFR (Non- 70.2 BUN/Creatinine Ratio 14.9 Random Glucose 111 mg/dl Calcium Level 8.3 mg/dl Magnesium Level 2.1 mg/dl Telemetry reviewed: Atrial fibrillation, overall somewhat rapid heart rate Assessment and Plan #1. Atrial fibrillation: He continues in atrial fibrillation, I suspect prehospitalization he was in it frequently if not most of the time. Amiodarone is not controlling the rhythm, but he is only minimally on it for several days. At this point I think we should continue it but I will switch her to oral. He will need anticoagulation, I agree with the use of Eliquis if he can afford it over the long run. He remains on heparin. His heart rate is somewhat fast, I believe he was on metoprolol tartrate 12.5 mg twice a day at home, I will add that medication now. We will watch him closely for hypotension, heart failure or bradycardia. #2. Left ventricular dysfunction: He does seem to have some left ventricular dysfunction although it is not severe. It may however be contributing to his presentation. We need to be cautious about diuresis as he probably needs a reasonable preload to provide a reasonable cardiac output. We also need to be careful with beta-blockade. #3. Enlarged right heart: He seems to have pulmonary hypertension related to long-standing hypoxia and sleep apnea, no acute event such as pulmonary embolism to explain it. I don't know how reversible this is but symptomatically he seems to be doing well. Thank you for allowing me to participate in his care.
--- NOTE | 2017-09-05 11:05 | NUR ---
Case Management- Patient was transferred to [facility] report given to unit case picker. Patient lives alone in an apartment is independent with adls has no [place] o2. Is currently on 6l nc he will either need weaned or a two step will need done to determine if home o2 is needed. CM following
--- NOTE | 2017-09-05 11:28 | Hospitalist Progress Note ---
Hospitalist Progress Note Date of Service Sep 05, 2017. Subjective Pt evaluation today including: conversation w/ patient Voiding: pina catheter in place Pt having trouble with BiPAP mask but is compliant for the most part. Says it hurts his nose. No SOB or CP. Still desats to the 70s on NC if napping as per RN notes. Discussed case with Cardiology and Pulmonology today. All Other Systems: Reviewed and Negative Objective Vital Signs Date Time Temp Pulse Resp B/P (MAP) Pulse Ox O2 Delivery O2 Flow Rate FiO2 09/05/17 07:48 36.6 76 20 144/82 (102) 92 Nasal Cannula 5.0 09/05/17 06:58 92 18 96 Nasal Cannula 6.0 09/05/17 04:00 BiPAP 09/05/17 03:35 37.1 80 19 122/62 (82) 94 CPAP 40 80 09/05/17 01:44 96 18 98 Nasal Cannula 6.0 09/05/17 00:19 BiPAP 09/04/17 23:45 37.6 99 22 126/74 (91) 98 CPAP 40 09/04/17 22:36 98 96 40 09/04/17 20:11 37.4 106 19 97 6.0 09/04/17 20:02 37.4 106 19 139/79 (99) 97 Nasal Cannula 6.0 09/04/17 20:00 Nasal Cannula 6.0 09/04/17 19:53 105 18 93 Nasal Cannula 6.0 09/04/17 19:02 100 19 121/76 (91) 91 Nasal Cannula 6.0 09/04/17 18:01 106 19 112/66 (81) 90 Nasal Cannula 6.0 09/04/17 17:16 131 19 128/72 (90) 91 Nasal Cannula 6.0 09/04/17 17:01 99 27 113/79 (90) 91 Nasal Cannula 6.0 09/04/17 16:47 120 17 118/74 (89) 93 Nasal Cannula 6.0 09/04/17 16:31 95 20 129/74 (92) 92 Nasal Cannula 6.0 09/04/17 16:17 94 25 114/69 (84) 100 Oxymask 15.0 09/04/17 16:02 37.7 107 18 107/60 (76) 96 Nasal Cannula 6.0 09/04/17 16:00 Nasal Cannula 6.0 09/04/17 15:01 102 17 126/74 (91) 93 Nasal Cannula 6.0 09/04/17 14:23 105 20 96 Nasal Cannula 6.0 09/04/17 14:00 104 22 117/87 (97) 96 Nasal Cannula 6.0 09/04/17 12:00 37.4 100 22 145/67 (93) 94 Nasal Cannula 6.0 09/04/17 12:00 Nasal Cannula 6.0 Physical Exam General Appearance: no apparent distress (sitting in chair at bedside), + obese Eyes: normal inspection, sclerae normal ENT: hearing grossly normal Neck: trachea midline Respiratory/Chest: no respiratory distress, no accessory muscle use, + decreased breath sounds (throughout, no wcr) Cardiovascular: no murmur, + irregularly irregular (with mild tachycardia), + pertinent finding (1+ pitting edema legs to knees bilat) Abdomen: normal bowel sounds, non tender, soft (and obese), + pertinent finding (Pina catheter draining clear yellow urine) Extremities: no calf tenderness Neurologic/Psychiatric: alert, normal mood/affect Skin: normal color, warm/dry, no rash Laboratory Results Last 24 Hours Test 09/04/17 11:45 09/04/17 11:52 09/04/17 16:28 09/05/17 00:10 Bedside Glucose 105 mg/dl 139 mg/dl Activated Partial Thromboplast Time 60.7 SECONDS 43.5 SECONDS Partial Thromboplastin Ratio 2.3 1.7 Test 09/05/17 07:13 White Blood Count 8.34 K/uL Red Blood Count 4.97 M/uL Hemoglobin 13.4 g/dL Hematocrit 44.2 % Mean Corpuscular Volume 88.9 fL Mean Corpuscular Hemoglobin 27.0 pg Mean Corpuscular Hemoglobin Concent 30.3 g/dl RDW Standard Deviation 41.1 fL RDW Coefficient of Variation 12.8 % Platelet Count 133 K/uL Mean Platelet Volume 9.4 fL Prothrombin Time 10.8 SECONDS Prothromb Time International Ratio 1.0 Activated Partial Thromboplast Time 56.3 SECONDS Partial Thromboplastin Ratio 2.2 Arterial Blood pH 7.29 Arterial Blood Partial Pressure CO2 81 mmHg Arterial Blood Partial Pressure O2 60 mm/Hg Arterial Blood HCO3 38 mmol/L Arterial Blood Oxygen Saturation 88.3 % Arterial Blood Base Excess 8.5 mEq/L Arterial Blood Gas Delivery FIO2 40% William Test POS Sodium Level 134 mmol/L Potassium Level 3.8 mmol/L Chloride Level 94 mmol/L Carbon Dioxide Level 38 mmol/L Anion Gap 2.0 mmol/L Blood Urea Nitrogen 16 mg/dl Creatinine 1.08 mg/dl Est Creatinine Clear Calc Drug Dose 81.4 ml/min Estimated GFR () 81.3 Estimated GFR (Non- 70.2 BUN/Creatinine Ratio 14.9 Random Glucose 111 mg/dl Calcium Level 8.3 mg/dl Magnesium Level 2.1 mg/dl Assessment and Plan This patient is a 67-year-old male with a history of hypertension, obesity, secondary polycythemia, who presented as a direct transfer from [facility] with new onset atrial flutter with RVR, acute on likely chronic hypercapnic and hypoxemic respiratory failure, and newly diagnosed systolic CHF. He reports he went to his PCP for his annual physical the morning of admission and his doctor noted a rapid heartbeat and called an ambulance for him. He was feeling weak at the time, but denied palpitations, lightheadedness , or chest pain. Upon arrival at [facility], he was in rapid atrial flutter with a 2-1 block and a heart rate of 145 bpm. He was bolused with IV Cardizem and placed on a Cardizem drip. He spontaneously converted to normal sinus rhythm, but then reverted to atrial fibrillation with a normal rate upon arrival to [facility]. He recently had his outpatient dose of metoprolol lowered to 25 mg by mouth twice a day due to lightheadedness. It was increased to 50 mg twice a day at [facility], but he became severely hypotensive requiring transfer to the intensive care unit shortly after arrival here. The metoprolol has since been held. His echo at [facility] showed an EF of 45%, with some global hypokinesis, but was otherwise normal. His initial chest x-ray was read as normal, but a repeat chest x-ray this morning showed developing signs of pulmonary vascular congestion and was consistent with acute CHF. He was persistently hypoxic there and an ABG was obtained which showed pH 7.26/PA CO2 86/PaO2 40. He was placed on BiPAP at that time, and repeat ABG was almost exactly the same, except his PaO2 had increased to 70. He is a previous smoker, he is obese, and has a thick neck. There is suspicion for undiagnosed REMBERTO. He is also a previous heavy smoker and continues to smoke 1 cigarette a day-he also may have undiagnosed COPD. He was given 1 dose of Lasix IV 40 mg 1 and a Pina catheter was placed prior to transfer to [facility]. After transfer to the intensive care unit here, he had a [place]-Sofia catheter placed and had evidence of moderate pulmonary hypertension on RHC, as well as left-sided diastolic and systolic heart failure. Paroxysmal atrial fibrillation/flutter with RVR-his blood pressure did not tolerate metoprolol 50 mg, but now rates still uncontrolled off AV mabel blockers. Has stabilized with his blood pressure and was transferred out of the intensive care unit on 09/04. -start back on lower dose metoprolol 12.5mg bid and be very cautious with increasing dose again -dc amiodarone drip and transition to by mouth amiodarone today -Consult cardiology appreciated -Continue full dose anticoagulation with heparin drip for now-pt agreeable to starting Eliquis if cost affordable-will king check and start Eliquis tonight if ok (and dc heparin gtt) -Treatment of suspected REMBERTO as below Acute on chronic hypercapnic and hypoxemic respiratory failure/suspect undiagnosed COPD and REMBERTO/Obesity hypoventilation syndrome/Current smoker/ Moderate Pulm HTN. -Continues on BiPAP intermittently throughout the day as well as continuously at nighttime. Seen by pulmonology and recommended increasing BiPAP settings to 20/6. ABG today slightly improved at pH 7.29/PaCO2 81/PaO2 60, serum bicarbonate is elevated at 38. -Continue BiPAP 20/6 continuously at nighttime and 4 hrs on/4 hrs off during daytime-will have RT come and refit/adjust mask for comfort -Check ABG again in the morning -He will definitely need BiPAP at nighttime upon discharge -Pulm thinks he qualifies without overnight oximetry based on dx of PHTN-Case Management checking into this -will need 2-step prior to discharge for continuous supplemental O2 via NC as well -Consult pulmonology appreciated - will need follow-up with sleep medicine as an outpatient as well as formal PFTs -Continue nebulizers for decreased breath sounds and hypoxemia -Counseled on smoking cessation HTN/Acute newly diagnosed combined systolic and diastolic CHF/Pulm HTN/right- sided heart failure-likely secondary to his untreated severe REMBERTO and OHS, as well as possible COPD. Not likely to be ischemic, but may need ischemic eval at some point in the future. ECGs neg, serially neg troponins even under great cardiac stress seems unlikely to have significant CAD. ECHO with : * Normal LV chamber size with moderate concentric LVH. * Mildly reduced LV systolic function with D shaped septum and flattened septal motion consistent with RV pressure/volume overload, EF 45-50%. * Severely dilated RV chamber size with severely reduced RV systolic function. * Akinesis of the RV free wall with preserved funciton of RV apical wall motion. * No significant valvular pathology. * TR jet inadequate to accurately calculate PASP. * Mild biatrial enlargement. Serial troponins negative at outside facility -was holding lisinopril due to engineering aid bump and hypotension--> continue to hold but hopefully can add back on at very low dose in near future -continue aspirin -continue daily Lasix 40 g IV 1 but dose day-by-day and with caution given previous hypotension and increased engineering aid (which has since improved) -Cardiology warns to not over diurese as he is dependent on preload for good cardiac output -Follow PRP for renal function and electrolytes -Treatment with BiPAP for REMBERTO/OHS as above -Discussed fluid restriction, low sodium diet, and eventually should have referral to pulmonary rehabilitation and weight loss program in the future -Discussed abstinence from alcohol and smoking cessation-he has not committed to either at this time -Patient desires palliative care consultation to help establish goals of care as he is not keen on the lifestyle recommendations for CHF-Palliative will see him today MARÍA ELENA in the setting of chronic kidney disease unknown stage-creatinine increased to 1.66 after hypotensive episode, now returned to 1.08 -Follow PRP -Renally dose all medications -Avoiding nephrotoxins -continue to hold lisinopril for now as above Secondary Polycythemia-hemoglobin is 15 at outside hospital, has received multiple phlebotomies in the past, but is likely secondary to smoking. Hgb here in 13-14 range -Follow CBC Prophylaxis-Heparin drip and transition to Eliquis likely today Disposition-to home when medically stable Full code but does not desire prolonged life support if prognosis is very poor- palliative care consultation requested
--- NOTE | 2017-09-05 11:40 | Pulmonology Progress Note ---
Pulmonary Progress Note Date of Service Sep 05, 2017. Attending Dr. Werner Subjective Patient seen and examined at bedside. He is out of bed to chair. He tolerated BIPAP well overnight. He denies any shortness of breath, cough, chest pain, palpitations, lightheadedness or dizziness. Objective VS reviewed. Currently 2.6 L negative since admission. Gen: AAOx3, NAD, speaking in full sentences. Appears chronically ill. CVS: S1, S2, loud P2, irregularly irregular Lungs: diminished breath sound bilaterally, otherwise CTA bilaterally Abd: soft/NT/ND/BS+ Ext: trace edema bilaterally, no cyanosis, no clubbing Labs reviewed. Imaging reviewed. Medications reviewed. Assessment & Plan Acute on chronic hypoxic hypercapnic respiratory failure Morbid obesity Obstructive sleep apnea Obesity hypoventilation syndrome Possible COPD Tobacco use disorder Atrial fibrillation Pulmonary hypertension Right ventricular heart failure Mr. Schreiber has improved slightly from a respiratory standpoint. He is still requiring supplemental oxygenation. He tolerated BIPAP overnight, but still remains has acute on chronic hypercapnia that is not full compensated. He has diuresed about 2.6 L since admission. From a respiratory standpoint, my recommendations are as follows. Continue with supplemental oxygenation mean an SaO2 between 88-92%. Currently he is on 5 L/m. Continue to intermittently uses BiPAP 4 hours on and off. Due to his body habitus he can probably handle increased EPAP from 6-8. Continue with BiPAP of 20. He will likely need a full polysomnography as an outpatient to evaluate for obstructive sleep apnea. However due to his current diagnoses of pulmonary hypertension he will qualify for BiPAP with oxygen upon discharge. Patient has requested Dr. Galo to follow him upon discharge. Continue atrial fibrillation management and BP management per cardiology and primary team. I will continue to follow with you. Data Medications: Current Inpatient Medications Medications (Trade) Dose Ordered Sig/Krissy Route Start Time Stop Time Status Last Admin Dose Admin Acetaminophen (Tylenol Tab) 650 mg Q4H PRN PO 09/03/17 13:30 10/03/17 13:29 09/05/17 03:01 650 MG Aspirin (Ecotrin Tab) 81 mg QAM PO 09/04/17 09:00 10/04/17 08:59 09/05/17 08:19 81 MG Levalbuterol (Xopenex 0.63 Mg/ 3 Ml Neb) 0.63 mg Q6R INH 09/03/17 15:00 10/03/17 14:59 09/05/17 06:58 0.63 MG Ioversol (Optiray 320) 100 ml UD PRN IV 09/03/17 17:30 09/07/17 17:29 Cyanocobalamin (Vitamin B-12 Tab) 500 mcg DAILY PO 09/04/17 09:00 10/04/17 08:59 09/05/17 08:19 500 MCG Heparin Sodium/ Dextrose 500 ml @ 24 mls/hr [id number] PRN IV 09/03/17 23:45 10/03/17 23:44 09/05/17 04:14 24 MLS/HR Non-Formulary Medication 1 ea BID OP 09/04/17 21:00 10/04/17 20:59 09/05/17 08:19 1 EA Amiodarone HCl (Cordarone Tab) 400 mg BID PO 09/05/17 21:00 10/05/17 20:59 Metoprolol Tartrate (Lopressor Tab) 12.5 mg BID PO 09/05/17 21:00 10/05/17 20:59 Vital Signs: Date Time Temp Pulse Resp B/P (MAP) Pulse Ox O2 Delivery O2 Flow Rate FiO2 09/05/17 07:48 36.6 76 20 144/82 (102) 92 Nasal Cannula 5.0 09/05/17 06:58 92 18 96 Nasal Cannula 6.0 09/05/17 04:00 BiPAP 09/05/17 03:35 37.1 80 19 122/62 (82) 94 CPAP 40 80 09/05/17 01:44 96 18 98 Nasal Cannula 6.0 09/05/17 00:19 BiPAP 09/04/17 23:45 37.6 99 22 126/74 (91) 98 CPAP 40 09/04/17 22:36 98 96 40 09/04/17 20:11 37.4 106 19 97 6.0 09/04/17 20:02 37.4 106 19 139/79 (99) 97 Nasal Cannula 6.0 09/04/17 20:00 Nasal Cannula 6.0 09/04/17 19:53 105 18 93 Nasal Cannula 6.0 09/04/17 19:02 100 19 121/76 (91) 91 Nasal Cannula 6.0 09/04/17 18:01 106 19 112/66 (81) 90 Nasal Cannula 6.0 09/04/17 17:16 131 19 128/72 (90) 91 Nasal Cannula 6.0 09/04/17 17:01 99 27 113/79 (90) 91 Nasal Cannula 6.0 09/04/17 16:47 120 17 118/74 (89) 93 Nasal Cannula 6.0 09/04/17 16:31 95 20 129/74 (92) 92 Nasal Cannula 6.0 09/04/17 16:17 94 25 114/69 (84) 100 Oxymask 15.0 09/04/17 16:02 37.7 107 18 107/60 (76) 96 Nasal Cannula 6.0 09/04/17 16:00 Nasal Cannula 6.0 09/04/17 15:01 102 17 126/74 (91) 93 Nasal Cannula 6.0 09/04/17 14:23 105 20 96 Nasal Cannula 6.0 09/04/17 14:00 104 22 117/87 (97) 96 Nasal Cannula 6.0 09/04/17 12:00 37.4 100 22 145/67 (93) 94 Nasal Cannula 6.0 09/04/17 12:00 Nasal Cannula 6.0 Laboratory Results: Last 24 Hours Test 09/04/17 11:45 09/04/17 11:52 09/04/17 16:28 09/05/17 00:10 Bedside Glucose 105 mg/dl 139 mg/dl Activated Partial Thromboplast Time 60.7 SECONDS 43.5 SECONDS Partial Thromboplastin Ratio 2.3 1.7 Test 09/05/17 07:13 White Blood Count 8.34 K/uL Red Blood Count 4.97 M/uL Hemoglobin 13.4 g/dL Hematocrit 44.2 % Mean Corpuscular Volume 88.9 fL Mean Corpuscular Hemoglobin 27.0 pg Mean Corpuscular Hemoglobin Concent 30.3 g/dl RDW Standard Deviation 41.1 fL RDW Coefficient of Variation 12.8 % Platelet Count 133 K/uL Mean Platelet Volume 9.4 fL Prothrombin Time 10.8 SECONDS Prothromb Time International Ratio 1.0 Activated Partial Thromboplast Time 56.3 SECONDS Partial Thromboplastin Ratio 2.2 Arterial Blood pH 7.29 Arterial Blood Partial Pressure CO2 81 mmHg Arterial Blood Partial Pressure O2 60 mm/Hg Arterial Blood HCO3 38 mmol/L Arterial Blood Oxygen Saturation 88.3 % Arterial Blood Base Excess 8.5 mEq/L Arterial Blood Gas Delivery FIO2 40% William Test POS Sodium Level 134 mmol/L Potassium Level 3.8 mmol/L Chloride Level 94 mmol/L Carbon Dioxide Level 38 mmol/L Anion Gap 2.0 mmol/L Blood Urea Nitrogen 16 mg/dl Creatinine 1.08 mg/dl Est Creatinine Clear Calc Drug Dose 81.4 ml/min Estimated GFR () 81.3 Estimated GFR (Non- 70.2 BUN/Creatinine Ratio 14.9 Random Glucose 111 mg/dl Calcium Level 8.3 mg/dl Magnesium Level 2.1 mg/dl
--- NOTE | 2017-09-05 12:00 | NUR ---
A: sitting up in chair. denies complaints. O2 at 5-6lpm via nc. no acute respiratory distress noted. consumed 100% lunch. IV Heparin infusing at 24ml/hr via 18 jelco left FA, site clear. 18 jelco intact left hand, site clear. pina patent clear yellow urine. assessment unchanged.
--- NOTE | 2017-09-05 12:23 | NUR ---
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 Wells I phone [facility] in [place] and request the pharmacy to run a "dummy script" to check the copay cost of Eliquis 5 mg po bid. The copay is $325/month. I ask the pharmacist to run a "dummy script" for Xarelto 20 mg po qd and the copay is also $325/month. The pharmacist said they are on the same "tier." Dr. Wells made aware of the high copay cost. Addendum: 09/05/17 at 1229 by Diamond MONREAL Follow up appt arranged w/ Dr. Tyler on FridaySeptember 16 at 3:50 pm. This info was added to the DC instructions. Addendum: 09/10/17 at 1110 by Diamond MONREAL Due to plan for [facility] at [place], I cancel the appt w/ Dr. Tyler.
--- NOTE | 2017-09-05 13:44 | NUR ---
case management note. received a call from Dr. Wells stating pt will need bipap set up prior to D/C. She states pt will also likely need O2. pt is currently requiring 5 L NC and does not have O2 at home. Dr. Wells states pt has a diagnosis of pulmonary hypertension and should qualify for bipap with this and will not need an overnight study. spoke with pt at bedside about bipap and O2 needs. list of DME options provided and pt would like to use [facility]. he denies other D/C needs at this time. spoke with thuan at [facility] respiratory department who states, 230-2 pt will need an overnight study (off the bipap but on current O2 liter flow) that shows a desaturation to 88% or less for at least 5 min in order for him to qualify for bipap, even with the pulmonary hypertension diagnosis. This has to be done within 48 hours of D/C. He will not need a repeat ABG since he had one on 09/05 that will be acceptable. He will also need the 2 step prior to D/C to determine the amount of O2 needed at home. Thuan states to wait until testing is completed to fax all info to [facility]. She also states to call manager environmental services # if pt D/C over the weekend or holiday. Dr. Wells aware of need for overnight study and 2 step. case management to follow.
--- NOTE | 2017-09-05 14:09 | Palliative Care Consultation ---
Consultation Date of Consultation: Sep 05, 2017. Requesting Physician: Dr. Rios Attending Physician: Dr. Wells Reason for Consultation: Goals of care History of Present Illness This 67 year old male patient with PMH htn, obesity, polycythemia, and others listed below presented to the hospital two days ago with aflutter and acute hypoxic respiratory failure from [facility]. He was sent to our ICU and was placed on Bipap for ph 7.26, CO2 86, PaO2 40. Given Lasix 40mg IV x1 dose. Patient went for right heart catheterization which showed "1. Elevated left sided filling pressures/HFpEF (PAWP 20) 2. Moderate pulmonary hypertension -- suspect mixed etiology left sided heart disease and lung disease/REMBERTO (WHO group 2/3). 3. Right sided heart failure (RA 19) 4. Mildly reduced cardiac output." [place] catheter was placed to monitor pressures. Financial Services Consultant recommended diuresis and determined patient to have newly diagnosed heart failure, pulmonary hypertension, and right ventricular failure. Patient was counseled on these new findings as well as lifestyle changes such as sodium and fluid restriction, which he is not fond of. Patient eats a large amount of deutsch daily, eats canned soups (specifically cream of mushroom), and occasionally drinks beer. Patient's family was present during this conversation that was held by the ICU physician. Palliative care is now consulted to establish goals of care. I met with the patient in room 230-2. He is awake, alert and oriented x4. Sitting up in chair, denies any complaints at this time. He wore his bipap mask last night, CO2 is down to 81 today from 97 yesterday. We discussed patient's new diagnoses. He is feeling very overwhelmed by the events of this hospitalization and is quite worried about making the necessary lifestyle changes. He has been living the same way for over 60 years and is unsure how he is going to manage at home. He does still wish to remain a full resuscitation status at this time. He already has a living will which states when he is end- stage/no hope of recovery that he would not want any life-prolonging measures and would want to be kept comfortable. His son Tawanda is main decision maker as well as his other son. he does not want me to call his sons at this time. I did offer my card to him and would be happy to set him up with Dr. Duron as an outpatient if he wishes. He will let me know. Past Medical/Surgical History Medical History: Htn Polycythemia obesity Smoker Bursitis Osteoarthritis Social History Smoking Status: Current Every Day Smoker History of Alcohol Use: Yes Drug Use: none Review of Systems Constitutional: No fever, No weakness ENT: No trouble swallowing Respiratory: + dyspnea on exertion, + dyspnea at rest Cardiac: No chest pain Abdomen: No pain, No nausea, No vomiting Male : No problem reported Psychiatric: No depression symptoms, No anxiety Allergies Coded Allergies: Maple [place] (Verified Allergy, Unknown, unknown, 09/03/17) Medications Current Inpatient Medications Medications (Trade) Dose Ordered Sig/Rkissy Route Start Time Stop Time Status Last Admin Dose Admin Acetaminophen (Tylenol Tab) 650 mg Q4H PRN PO 09/03/17 13:30 10/03/17 13:29 09/05/17 03:01 650 MG Aspirin (Ecotrin Tab) 81 mg QAM PO 09/04/17 09:00 10/04/17 08:59 09/05/17 08:19 81 MG Levalbuterol (Xopenex 0.63 Mg/ 3 Ml Neb) 0.63 mg Q6R INH 09/03/17 15:00 10/03/17 14:59 09/05/17 06:58 0.63 MG Ioversol (Optiray 320) 100 ml UD PRN IV 09/03/17 17:30 09/07/17 17:29 Cyanocobalamin (Vitamin B-12 Tab) 500 mcg DAILY PO 09/04/17 09:00 10/04/17 08:59 09/05/17 08:19 500 MCG Heparin Sodium/ Dextrose 500 ml @ 24 mls/hr [id number] PRN IV 09/03/17 23:45 10/03/17 23:44 09/05/17 04:14 24 MLS/HR Non-Formulary Medication 1 ea BID OP 09/04/17 21:00 10/04/17 20:59 09/05/17 08:19 1 EA Amiodarone HCl (Cordarone Tab) 400 mg BID PO 09/05/17 21:00 10/05/17 20:59 Metoprolol Tartrate (Lopressor Tab) 12.5 mg BID PO 09/05/17 21:00 10/05/17 20:59 Physical Exam Date Time Temp Pulse Resp B/P (MAP) Pulse Ox O2 Delivery O2 Flow Rate FiO2 09/05/17 11:46 37.4 45 19 115/74 (88) 98 Nasal Cannula 5.0 09/05/17 08:00 Nasal Cannula 6.0 09/05/17 07:48 36.6 76 20 144/82 (102) 92 Nasal Cannula 5.0 09/05/17 06:58 92 18 96 Nasal Cannula 6.0 09/05/17 04:00 BiPAP 09/05/17 03:35 37.1 80 19 122/62 (82) 94 CPAP 40 80 09/05/17 01:44 96 18 98 Nasal Cannula 6.0 09/05/17 00:19 BiPAP 09/04/17 23:45 37.6 99 22 126/74 (91) 98 CPAP 40 09/04/17 22:36 98 96 40 09/04/17 20:11 37.4 106 19 97 6.0 09/04/17 20:02 37.4 106 19 139/79 (99) 97 Nasal Cannula 6.0 09/04/17 20:00 Nasal Cannula 6.0 09/04/17 19:53 105 18 93 Nasal Cannula 6.0 09/04/17 19:02 100 19 121/76 (91) 91 Nasal Cannula 6.0 09/04/17 18:01 106 19 112/66 (81) 90 Nasal Cannula 6.0 09/04/17 17:16 131 19 128/72 (90) 91 Nasal Cannula 6.0 09/04/17 17:01 99 27 113/79 (90) 91 Nasal Cannula 6.0 09/04/17 16:47 120 17 118/74 (89) 93 Nasal Cannula 6.0 09/04/17 16:31 95 20 129/74 (92) 92 Nasal Cannula 6.0 09/04/17 16:17 94 25 114/69 (84) 100 Oxymask 15.0 09/04/17 16:02 37.7 107 18 107/60 (76) 96 Nasal Cannula 6.0 09/04/17 16:00 Nasal Cannula 6.0 09/04/17 15:01 102 17 126/74 (91) 93 Nasal Cannula 6.0 09/04/17 14:23 105 20 96 Nasal Cannula 6.0 09/04/17 14:00 104 22 117/87 (97) 96 Nasal Cannula 6.0 General Appearance: no apparent distress, + obese ENT: hearing grossly normal Neck: supple, no JVD Respiratory: no respiratory distress, no accessory muscle use, + decreased breath sounds (bilateral bases) Cardiovascular: regular rate, rhythm, + normal peripheral pulses Abdomen: normal bowel sounds, non tender, + pertinent finding (obesely distended abdomen) Neurologic/Psychiatric: alert, normal mood/affect, oriented x 3 Skin: normal color Laboratory Results Last 24 Hours Test 09/04/17 16:28 09/05/17 00:10 09/05/17 07:13 Bedside Glucose 139 mg/dl Activated Partial Thromboplast Time 43.5 SECONDS 56.3 SECONDS Partial Thromboplastin Ratio 1.7 2.2 White Blood Count 8.34 K/uL Red Blood Count 4.97 M/uL Hemoglobin 13.4 g/dL Hematocrit 44.2 % Mean Corpuscular Volume 88.9 fL Mean Corpuscular Hemoglobin 27.0 pg Mean Corpuscular Hemoglobin Concent 30.3 g/dl RDW Standard Deviation 41.1 fL RDW Coefficient of Variation 12.8 % Platelet Count 133 K/uL Mean Platelet Volume 9.4 fL Prothrombin Time 10.8 SECONDS Prothromb Time International Ratio 1.0 Arterial Blood pH 7.29 Arterial Blood Partial Pressure CO2 81 mmHg Arterial Blood Partial Pressure O2 60 mm/Hg Arterial Blood HCO3 38 mmol/L Arterial Blood Oxygen Saturation 88.3 % Arterial Blood Base Excess 8.5 mEq/L Arterial Blood Gas Delivery FIO2 40% William Test POS Sodium Level 134 mmol/L Potassium Level 3.8 mmol/L Chloride Level 94 mmol/L Carbon Dioxide Level 38 mmol/L Anion Gap 2.0 mmol/L Blood Urea Nitrogen 16 mg/dl Creatinine 1.08 mg/dl Est Creatinine Clear Calc Drug Dose 81.4 ml/min Estimated GFR () 81.3 Estimated GFR (Non- 70.2 BUN/Creatinine Ratio 14.9 Random Glucose 111 mg/dl Calcium Level 8.3 mg/dl Magnesium Level 2.1 mg/dl Assessment & Plan Problem list: SOB/MARINELLI Paroxysmal afib Acute on chronic respiratory failure- hypoxic and hypercapnic Newly diagnosed right heart failure, pulmonary hypertension, combined systolic and diastolic heart failure MARÍA ELENA on CKD (unknown stage) Hx polycythemia Goals of care (Z51.5) Palliative care recs: -Remains a full code at this time. Would not want any mcfp intubation or life-prolonging measures if he has little chance of recovery, however. He has a living will that reflects these wishes. -Son, Tawanda, is patient's POA/decision maker. -Needs to wear Bipap at night- this was discussed with patient and he agrees to do so. He understands the risk if he does not. -Fluid restriction and sodium restriction were again discussed with patient and he does understand. He is quite overwhelmed by his new diagnoses and is unsure how he will do with making these major lifestyle changes. -I offered to set him up with outpatient palliative care with Dr. Duron if he wishes to have a family meeting with his sons. He said he would call me. -Patient will likely be discharged over the weekend. Thank you kindly for this consult. Please contact me with any further palliative care needs.
--- NOTE | 2017-09-05 16:00 | NUR ---
A: Patient alert and oriented with periods of forgetfulness and impulsiveness. Patient currently sitting up in chair with family at bedside. Patient remains on 6L NC satting in the mid 90s. Patient on and off bipap q4 hours. Patient reminded of the importance of coughing and deep breathing. Patient currently afib in the 80-90s on monitor. BP stable. Pulses palpable. +2 BLLE edema noted. No BM at this time. BS active. Werner patent draining clear yellow urine. IV sites intact. Heparin infusing @ 24. PTT due in morning. Heparin remains therapeutic. Amio gtt stopped today. Patient switched to PO amio. Skin intact. No breakdown noted. VS remain stable. Will continue to monitor.
[2017-09-05] MEDS ORDERED: WARFARIN SOD 5 MG TAB PO ONE (18:15)
[2017-09-05] MEDS: AMIODARONE 200 MG TAB PO SCH (19:53)
[2017-09-05] MEDS: METOPROLOL TARTRATE 25 MG TAB PO SCH (19:55)
--- NOTE | 2017-09-05 20:00 | NUR ---
A: Previous assessment unchanged. Patient asleep in bed. Patient remains on 6L NC with a sat of 91-90%. Patient continues with sleep study. Respiratory aware. Heparin continues to infuse at 24. VS remain stable. Patient denies any needs at this time. Will continue to monitor.
[2017-09-06] VITALS (13 sets, daily range): BP systolic 105–158; BP diastolic 50–98; PULSE 71–109; TEMP 36.6–37.3; O2SAT 69–98
--- NOTE | 2017-09-06 01:43 | Progress Note ---
Post ICU Progress Note Date & Time Sep 05, 2017 Late Entry Vital Signs Vital Signs Past 12 Hours Date Time Temp Pulse Resp B/P (MAP) Pulse Ox O2 Delivery O2 Flow Rate FiO2 09/06/17 00:13 37.3 89 20 105/50 (68) 96 Nasal Cannula 09/05/17 20:00 Nasal Cannula 6.0 09/05/17 19:52 36.8 82 20 161/77 (105) 90 Nasal Cannula 6.0 09/05/17 19:19 106 20 94 Nasal Cannula 6.0 09/05/17 16:00 Nasal Cannula 6.0 09/05/17 15:37 36.8 62 18 145/88 (107) 98 BiPAP 09/05/17 14:15 77 14 98 BiPAP/CPAP 40 09/05/17 14:13 85 98 40 Notes Mental Status: alert / awake, participated in evaluation Nausea / Vomiting: adequately controlled Pain: adequately controlled Airway Patency, RR, SpO2: stable & adequate BP & HR: stable & adequate Alvarez Schreiber is a 67yo male that presented as a transfer from [facility] where he was hypoxic with Atrial Flutter/Fibrillation with RVR on . Pt was taken by Dr. Funez to the Cardiac research laboratory manager for insertion of a [place] catheter that revealed moderate pulmonary htn, Right sided heart failure, reduced cardiac outpt, and elevated left sided filling pressures. Pt spontaneously converted to NSR after Cardizem infusion. CT Chest ruled out PE. Pt has had multiple talks with community integration specialist and cardiologists about current diagnosis. He has been educated on the need for a low sodium diet and daily fluid restriction. Pts right IJ catheter was removed as well as [place] on and downgraded from the ICU. Pt did not require intubation during ICU admission. Upon examination today, pt is in good spirits but still unhappy about new restrictions but sounds willing to try. Breath sounds are clear throughout, RRR, bowel sounds present. Pt remains on 6L nasal cannula and ordered Bipap at night with adequate saturations. Pt stated that he is going to be going to rehab, hopefully yet this weekend, dependent on insurance authorization. Consider outpatient follow up in 1 to 2 weeks with: Dr. Tyler, DO PCP Repeat imaging needed: Per Cardiology Follow up cultures: N/A Reviewed progress notes, labs, and inpatient medication list Continue current management Additional recommendations: N/A CCM will sign off at this time. Thank you for including us in the care of this pt; please feel free to reconsult as needed. Consults & Procedures Consultants: Cardiology Pulmonary Critical care medicine Procedures: Right heart cath 09/03/2017, [place] catheter discontinued and central line discontinued 09/04/2017
[2017-09-06] MEDS: LEVALBUTEROL 0.63MG/3 ML NEB INH SCH ×4 (01:45→19:10)
--- NOTE | 2017-09-06 01:46 | NUR ---
0300 nebulizer treatment held. Patient is on nocturnal pulse oximetry study at this time.
[2017-09-06] MEDS: HEPARIN 25,000 UNIT/500ML D5W 500 ML IV PRN ×3 (02:12→21:24)
[2017-09-06 05:11] LABS: PTT PATIENT 43.4 SECONDS (21.0-31.0)
[2017-09-06 05:32] LABS: CALCIUM 8.6 mg/dl (8.5-10.1); CREATININE 1.01 mg/dl (0.60-1.40); POTASSIUM 4.1 mmol/L (3.5-5.1)
[2017-09-06] MEDS ORDERED: HEPARIN IV BOLUS 3,000 UNIT in SYRINGE 0 ML IV ONE (06:00)
--- NOTE | 2017-09-06 08:00 | NUR ---
Patient A+Ox4. Denies pain. Vital signs stable. A-flutter on monitor, rate in the 80's. He denies any CP/pressure/palpitations. Pulses palpable. B/LLE edema noted. Lung sounds are diminished throughout. Currently wearing 5L O2 via NC. Did not wear BiPAP overnight; had overnight pulse ox study. Denies feeling SOB. No cough heard. +BS x 4. Tolerating diet. He reports that his last BM was yesterday. Werner intact and draining CYU. Skin intact. Heparin drip infusing at 27 ml/hr via #18 left forearm. #18 left hand saline locked and WNL. Explained plan for day. Patient denies needs at this time. Will continue to monitor.
[2017-09-06] MEDS: CYANOCOBALAMIN 500 MCG TAB (VIT B-12) PO SCH (08:38)
[2017-09-06] MEDS: ASPIRIN 81 MG ECTAB PO SCH (08:38)
[2017-09-06] MEDS: EPINASTINE OP SCH ×2 (08:38→19:44)
[2017-09-06] MEDS: METOPROLOL TARTRATE 25 MG TAB PO SCH ×2 (08:38→19:43)
[2017-09-06] MEDS: AMIODARONE 200 MG TAB PO SCH ×2 (08:39→19:43)
[2017-09-06] MEDS ORDERED: FUROSEMIDE 40 MG TAB PO ONE (11:30)
--- NOTE | 2017-09-06 12:00 | NUR ---
[employer] supervisor case management note. Spoke with md about discharge planning. If pt goes home pt will need lovenox but pt may benefit from rehab. Spoke with pt and he wants to see how therapy goes. Pt uses [facility] pharmacy in [place]. With permission spoke with pharmacist. There is not a 110 mg dose so pt would need to give himself 2 injections. Updated md. Will follow up with pt about rehab. Case management to follow with pt.
--- NOTE | 2017-09-06 12:00 | NUR ---
Patient in NAD. VSS. Continues in A-flutter on monitor, rate 90's-100's. Denies any CP/pressure. Denies pain. Tolerating diet. PT coming to work with patient this afternoon. Alphonso Tesfaye/C'ton. Denies needs at this time. Will continue to monitor.
[2017-09-06 12:24] LABS: PTT PATIENT 58.5 SECONDS (21.0-31.0)
--- NOTE | 2017-09-06 12:41 | Pulmonology Progress Note ---
Pulmonary Progress Note Date of Service Sep 06, 2017. Attending Dr. Werner Subjective Patient seen and examined this morning. His resting comfortably with noticeable episodes of apnea while on nasal cannula. He awakened easily to verbal stimuli. He denies any shortness of breath, chest pain, or palpitations. Objective VS reviewed. MAXIMUM TEMPERATURE 37.3, blood pressure 105/50 to 155/90, pulse 71-100, respiratory rate 16-22, pulse oximetry 76-96% on +6 L nasal cannula. Currently 4.7 L negative since admission. Gen: AAOx3, NAD, speaking in full sentences. Appears chronically ill. CVS: S1, S2, loud P2, irregularly irregular, tachycardic Lungs: diminished breath sound bilaterally, otherwise CTA bilaterally Abd: soft/NT/ND/BS+ Ext: trace edema bilaterally, no cyanosis, no clubbing Labs reviewed. Imaging reviewed. Medications reviewed. Assessment & Plan Acute on chronic hypoxic hypercapnic respiratory failure Morbid obesity Obstructive sleep apnea Obesity hypoventilation syndrome Possible COPD Tobacco use disorder Atrial fibrillation Pulmonary hypertension Right ventricular heart failure Mr. Schreiber improves day from a respiratory standpoint. He is still requiring supplemental oxygenation of 5-6 L to maintain saturations in the 90s. Nocturnal oximetry shows profound hypoxemia despite being on 6 L/m nasal cannula. His lowest recorded SaO2 was 44% and lowest pulse rate 34 bpm. His total time less than 88% was 122.3 minutes. Recommendations Continue supplemental oxygen to maintain an SaO2 between 88-92%. He should continue with intermittent use of BiPAP and nasal cannula. I recommend increasing his EPAP to at least 8 with an IPAP of about 18-20. Should likely be discharged home on BiPAP. Continue atrial fibrillation management and BP management per cardiology and primary team. He will likely need a full polysomnography as an outpatient to evaluate for obstructive sleep apnea. However due to his current diagnoses of pulmonary hypertension and nocturnal hypoxemia, he will likely qualify for BiPAP with oxygen upon discharge. He should follow with Dr. Galo, upon hospital discharge. Please contact me any further questions or concerns. Data Medications: Current Inpatient Medications Medications (Trade) Dose Ordered Sig/Krissy Route Start Time Stop Time Status Last Admin Dose Admin Acetaminophen (Tylenol Tab) 650 mg Q4H PRN PO 09/03/17 13:30 10/03/17 13:29 09/05/17 03:01 650 MG Aspirin (Ecotrin Tab) 81 mg QAM PO 09/04/17 09:00 10/04/17 08:59 09/06/17 08:38 81 MG Levalbuterol (Xopenex 0.63 Mg/ 3 Ml Neb) 0.63 mg Q6R INH 09/03/17 15:00 10/03/17 14:59 09/06/17 06:57 0.63 MG Ioversol (Optiray 320) 100 ml UD PRN IV 09/03/17 17:30 09/07/17 17:29 Cyanocobalamin (Vitamin B-12 Tab) 500 mcg DAILY PO 09/04/17 09:00 10/04/17 08:59 09/06/17 08:38 500 MCG Heparin Sodium/ Dextrose 500 ml @ 27 mls/hr [id number] PRN IV 09/03/17 23:45 10/03/17 23:44 09/06/17 06:00 27 MLS/HR Non-Formulary Medication 1 ea BID OP 09/04/17 21:00 10/04/17 20:59 09/06/17 08:38 1 EA Amiodarone HCl (Cordarone Tab) 400 mg BID PO 09/05/17 21:00 10/05/17 20:59 09/06/17 08:39 400 MG Metoprolol Tartrate (Lopressor Tab) 12.5 mg BID PO 09/05/17 21:00 10/05/17 20:59 09/06/17 08:38 12.5 MG Warfarin Sodium (Coumadin Tab) 5 mg DAILY@16 PO 09/06/17 16:00 10/06/17 15:59 Furosemide (Lasix Tab) 40 mg QAM PO 09/07/17 09:00 10/07/17 08:59 Vital Signs: Date Time Temp Pulse Resp B/P (MAP) Pulse Ox O2 Delivery O2 Flow Rate FiO2 09/06/17 08:00 Nasal Cannula 5.0 09/06/17 07:14 36.7 71 16 155/90 (111) 92 5.0 09/06/17 06:57 100 20 92 Nasal Cannula 6.0 09/06/17 05:47 99 22 76 Nasal Cannula 6.0 09/06/17 04:21 Nasal Cannula 6.0 09/06/17 04:06 37.0 89 20 122/75 (91) 93 Nasal Cannula 09/06/17 00:13 37.3 89 20 105/50 (68) 96 Nasal Cannula 09/05/17 23:59 Nasal Cannula 6.0 09/05/17 20:00 Nasal Cannula 6.0 09/05/17 19:52 36.8 82 20 161/77 (105) 90 Nasal Cannula 6.0 09/05/17 19:19 106 20 94 Nasal Cannula 6.0 09/05/17 16:00 Nasal Cannula 6.0 09/05/17 15:37 36.8 62 18 145/88 (107) 98 BiPAP 09/05/17 14:15 77 14 98 BiPAP/CPAP 40 09/05/17 14:13 85 98 40 09/05/17 12:00 Nasal Cannula 6.0 Laboratory Results: Last 24 Hours Test 09/06/17 04:49 Prothrombin Time 10.9 SECONDS Prothromb Time International Ratio 1.0 Activated Partial Thromboplast Time 43.4 SECONDS Partial Thromboplastin Ratio 1.7 Sodium Level 132 mmol/L Potassium Level 4.1 mmol/L Chloride Level 92 mmol/L Carbon Dioxide Level 41 mmol/L Anion Gap -1.0 mmol/L Blood Urea Nitrogen 16 mg/dl Creatinine 1.01 mg/dl Est Creatinine Clear Calc Drug Dose 87.1 ml/min Estimated GFR () 88.2 Estimated GFR (Non- 76.1 BUN/Creatinine Ratio 15.6 Random Glucose 117 mg/dl Calcium Level 8.6 mg/dl Magnesium Level 2.1 mg/dl
[2017-09-06] MEDS ORDERED: SPIRONOLACTONE 25 MG TAB PO ONE (12:45)
--- NOTE | 2017-09-06 14:05 | Cardiology Follow-Up ---
Subjective General Date of Service: Sep 06, 2017. Pt evaluation today including: conversation w/ patient, conversation w/ family , chart review, lab review, review of studies, conversation w/ investment consultant, review of inpatient medication list History of Present Illness The patient is a 67 year old male with Afib with RVR and right sided CHF Allergies Coded Allergies: [place] (Verified Allergy, Unknown, unknown, 09/03/17) Social History Smoking Status: Current Every Day Smoker Hx Tobacco Use In Past Year?: Yes Hx Alcohol Use - Type And Amou: Yes Hx Substance Use - Type And Am: No Review of Systems Respiratory: + shortness of breath, + dyspnea on exertion, + dyspnea at rest, No cough Cardiac: + edema, No chest pain, No palpitations Physical Exam Vital Signs Last Vital Signs Documentation Date Time Temp Pulse Resp B/P (MAP) Pulse Ox O2 Delivery O2 Flow Rate FiO2 09/06/17 13:01 89 09/06/17 12:30 36.8 20 158/98 (118) 95 Nasal Cannula 6.0 09/05/17 14:15 40 Physical Exam Constitutional: General Apperance: obese Level of Distress: chronically ill Psychiatric: Mental Status: active & alert Head: normocephalic ENMT: pertinent finding Lungs: Auscultation: no wheezing, no rales/crackles, deminished air movement, decreased breath sounds Cardiovascular: Heart Auscultation: no murmurs, no rubs, no gallops, irregular rate rhythm Peripheral Pulses: Bruits: none appreciated Abdomen: Bowel Sounds: normal Inspection & Palpation: soft, no tenderness, guarding & rebound, no masses, distended Extremities: edema Assessment and Plan Assessment and Plan 1) Acute respiratory Failure 2) Chronic CO2 retainer 3) Severe RV dysfunction with Severe RV dilation and Flatenning of the IVS 4)REMBERTO and OHS 5) Right sided CHF 6) Mildly reduced LV systolic function with D shaped septum and flattened septal motion consistent with RV pressure/volume overload, EF 45-50%. 7. Afib with RVR D/w Primary service Add aldactone with right sided CHF; continue with lasix Continue low dose BB and amio 400mg BID; may need dig to control HR given limited BP room Heparin to coumadin bIPAP TO unload RV Daily weights, 2 Gm Na diet, CHF education ( I did some today) Poor prognosis D/W Ni daughter in law by phone Laboratory Results Last 24 Hours Test 09/06/17 04:49 09/06/17 11:58 Prothrombin Time 10.9 SECONDS Prothromb Time International Ratio 1.0 Activated Partial Thromboplast Time 43.4 SECONDS 58.5 SECONDS Partial Thromboplastin Ratio 1.7 2.3 Sodium Level 132 mmol/L Potassium Level 4.1 mmol/L Chloride Level 92 mmol/L Carbon Dioxide Level 41 mmol/L Anion Gap -1.0 mmol/L Blood Urea Nitrogen 16 mg/dl Creatinine 1.01 mg/dl Est Creatinine Clear Calc Drug Dose 87.1 ml/min Estimated GFR () 88.2 Estimated GFR (Non- 76.1 BUN/Creatinine Ratio 15.6 Random Glucose 117 mg/dl Calcium Level 8.6 mg/dl Magnesium Level 2.1 mg/dl
--- NOTE | 2017-09-06 16:00 | NUR ---
Patient in NAD. VSS. Continues in A-flutter on monitor. Denies CP/pressure. Heparin drip continues to infuse at 27 ml/hr. O2 NC at 5L. Denies SOB/dyspnea. Worked with PT. Has been voiding CYU without difficulty since having Alphonso D/C'd. Had BM. Tolerating diet. Will continue to monitor.
[2017-09-06] MEDS: WARFARIN SOD 5 MG TAB PO SCH (16:41)
--- NOTE | 2017-09-06 19:36 | Hospitalist Progress Note ---
Hospitalist Progress Note Date of Service Sep 06, 2017. Subjective Pt evaluation today including: conversation w/ patient, conversation w/ family , conversation w/ corporate health consultant (cardiology) Patient states he feels pretty well today. Denies shortness of breath or heart palpitations. His heart rates remain elevated in the low 100s at times bursting into the 120s to 130s., Remains in A. fib. He failed his overnight oximetry test last night. Patient is agreeable to rehabilitation stay if accepted. All Other Systems: Reviewed and Negative Objective Vital Signs Date Time Temp Pulse Resp B/P (MAP) Pulse Ox O2 Delivery O2 Flow Rate FiO2 09/06/17 19:12 71 18 69 Room Air 09/06/17 16:00 Nasal Cannula 5.0 09/06/17 15:29 37.1 74 20 145/79 (101) 92 Nasal Cannula 6.0 09/06/17 14:15 87 20 92 Nasal Cannula 6.0 09/06/17 13:01 89 09/06/17 12:30 36.8 109 20 158/98 (118) 95 Nasal Cannula 6.0 09/06/17 12:00 Nasal Cannula 5.0 09/06/17 08:00 Nasal Cannula 5.0 09/06/17 07:14 36.7 71 16 155/90 (111) 92 5.0 09/06/17 06:57 100 20 92 Nasal Cannula 6.0 09/06/17 05:47 99 22 76 Nasal Cannula 6.0 09/06/17 04:21 Nasal Cannula 6.0 09/06/17 04:06 37.0 89 20 122/75 (91) 93 Nasal Cannula 09/06/17 00:13 37.3 89 20 105/50 (68) 96 Nasal Cannula 09/05/17 23:59 Nasal Cannula 6.0 09/05/17 20:00 Nasal Cannula 6.0 09/05/17 19:52 36.8 82 20 161/77 (105) 90 Nasal Cannula 6.0 Physical Exam General Appearance: no apparent distress, + obese Eyes: normal inspection, sclerae normal ENT: hearing grossly normal Neck: trachea midline Respiratory/Chest: no respiratory distress, no accessory muscle use, + decreased breath sounds (at the bases bilaterally, otherwise clear) Cardiovascular: no murmur, + irregularly irregular (with mild tachycardia), + pertinent finding (1+ pitting edema in lower extremities bilaterally to the knees) Abdomen: normal bowel sounds, non tender, soft (and obese) Extremities: no calf tenderness Neurologic/Psychiatric: alert, normal mood/affect Skin: normal color, warm/dry, no rash Laboratory Results Last 24 Hours Test 09/06/17 04:49 09/06/17 11:58 Prothrombin Time 10.9 SECONDS Prothromb Time International Ratio 1.0 Activated Partial Thromboplast Time 43.4 SECONDS 58.5 SECONDS Partial Thromboplastin Ratio 1.7 2.3 Sodium Level 132 mmol/L Potassium Level 4.1 mmol/L Chloride Level 92 mmol/L Carbon Dioxide Level 41 mmol/L Anion Gap -1.0 mmol/L Blood Urea Nitrogen 16 mg/dl Creatinine 1.01 mg/dl Est Creatinine Clear Calc Drug Dose 87.1 ml/min Estimated GFR () 88.2 Estimated GFR (Non- 76.1 BUN/Creatinine Ratio 15.6 Random Glucose 117 mg/dl Calcium Level 8.6 mg/dl Magnesium Level 2.1 mg/dl Assessment and Plan This patient is a 67-year-old male with a history of hypertension, obesity, secondary polycythemia, who presented as a direct transfer from [facility] with new onset atrial flutter with RVR, acute on likely chronic hypercapnic and hypoxemic respiratory failure, and newly diagnosed systolic CHF. He reports he went to his PCP for his annual physical the morning of admission and his doctor noted a rapid heartbeat and called an ambulance for him. He was feeling weak at the time, but denied palpitations, lightheadedness , or chest pain. Upon arrival at [facility], he was in rapid atrial flutter with a 2-1 block and a heart rate of 145 bpm. He was bolused with IV Cardizem and placed on a Cardizem drip. He spontaneously converted to normal sinus rhythm, but then reverted to atrial fibrillation with a normal rate upon arrival to [facility]. He recently had his outpatient dose of metoprolol lowered to 25 mg by mouth twice a day due to lightheadedness. It was increased to 50 mg twice a day at [facility], but he became severely hypotensive requiring transfer to the intensive care unit shortly after arrival here. The metoprolol has since been held/reduced. His echo at [facility] showed an EF of 45%, with some global hypokinesis, but was otherwise normal. His initial chest x-ray was read as normal, but a repeat chest x-ray then showed developing signs of pulmonary vascular congestion and was consistent with acute CHF. He was persistently hypoxic there and an ABG was obtained which showed pH 7.26/PA CO2 86/PaO2 40. He was placed on BiPAP at that time, and repeat ABG was almost exactly the same , except his PaO2 had increased to 70. He is a previous smoker, he is obese, and has a thick neck. There is suspicion for undiagnosed REMBERTO and OHS. He is also a previous heavy smoker and continues to smoke 1 cigarette a day-he also may have undiagnosed COPD. He was given 1 dose of Lasix IV 40 mg 1 and a Werner catheter was placed prior to transfer to [facility]. After transfer to the intensive care unit here, he had a [place] catheter placed and had evidence of moderate pulmonary hypertension on RHC, as well as left-sided diastolic and systolic heart failure. Paroxysmal atrial fibrillation/flutter with RVR-his blood pressure did not tolerate metoprolol 50 mg, but rates were still uncontrolled off AV mabel blockers. Restarted low-dose metoprolol 12.5 mg by mouth twice a day on 09/05. Rates still uncontrolled Has stabilized with his blood pressure and was transferred out of the intensive care unit on 09/04. -Continue metoprolol 12.5mg bid -Was on amiodarone drip 24 hours and transition to by mouth amiodarone 400 mg by mouth twice a day -Consult cardiology appreciated -Consider digoxin but will hold off for now, will defer to cardiology-discussed with Dr. Obrien today -Continue full dose anticoagulation with heparin drip as bridge to Coumadin ( Eliquis was not cost affordable) -Treatment of suspected REMBERTO/OHS as below Acute on chronic hypercapnic and hypoxemic respiratory failure/suspect undiagnosed COPD and REMBERTO/Obesity hypoventilation syndrome/Current smoker/ Moderate Pulm HTN. -Continues on BiPAP intermittently throughout the day as well as continuously at nighttime. Seen by pulmonology and recommended increasing BiPAP settings to 20/6. ABG today slightly improved at pH 7.29/PaCO2 81/PaO2 60, serum bicarbonate is elevated at 38. -Continue BiPAP 20/6 continuously at nighttime and 4 hrs on/4 hrs off during daytime-will have RT come and refit/adjust mask for comfort - qualifies for home BiPAP based on overnight oximetry-but if goes to rehabilitation, this will not need to be arranged -will need 2-step prior to discharge for continuous supplemental O2 via NC as well if ends up going home -Consult pulmonology appreciated - will need follow-up with sleep medicine as an outpatient as well as formal PFTs -Continue nebulizers for decreased breath sounds and hypoxemia -Counseled on smoking cessation HTN/Acute newly diagnosed combined systolic and diastolic CHF/Pulm HTN/right- sided heart failure-likely secondary to his untreated severe REMBERTO and OHS, as well as possible COPD. Not likely to be ischemic, but may need ischemic eval at some point in the future. ECGs neg, serially neg troponins even under great cardiac stress seems unlikely to have significant CAD. ECHO with : * Normal LV chamber size with moderate concentric LVH. * Mildly reduced LV systolic function with D shaped septum and flattened septal motion consistent with RV pressure/volume overload, EF 45-50%. * Severely dilated RV chamber size with severely reduced RV systolic function. * Akinesis of the RV free wall with preserved funciton of RV apical wall motion. * No significant valvular pathology. * TR jet inadequate to accurately calculate PASP. * Mild biatrial enlargement. Serial troponins negative at outside facility -was holding lisinopril due to occupational therapist bump and hypotension--> continue to hold but hopefully can add back on at very low dose in near future -continue aspirin -continue daily Lasix 40mg and switch to by mouth today -Adding low-dose Aldactone for right-sided heart failure 12.5 mg daily as per cardiology -Cardiology warns to not over diurese as he is dependent on preload for good cardiac output -Follow PRP for renal function and electrolytes -Treatment with BiPAP for REMBERTO/OHS as above -Discussed fluid restriction, low sodium diet, and eventually should have referral to pulmonary rehabilitation and weight loss program in the future -Discussed abstinence from alcohol and smoking cessation-he has not committed to either at this time -Patient desires palliative care consultation to help establish goals of care as he is not keen on the lifestyle recommendations for CHF-Palliative has seen him MARÍA ELENA in the setting of chronic kidney disease unknown stage-creatinine increased to 1.66 after hypotensive episode, now returned to 1.01 -Follow PRP -Renally dose all medications -Avoiding nephrotoxins -continue to hold lisinopril for now as above Secondary Polycythemia-hemoglobin is 15 at outside hospital, has received multiple phlebotomies in the past, but is likely secondary to smoking. Hgb here in 13-14 range -Follow CBC Prophylaxis-Heparin drip and Coumadin, follow INR Disposition-to home vs [facility] in 1-2 days Full code but does not desire prolonged life support if prognosis is very poor- palliative care consultation appreciated
--- NOTE | 2017-09-06 20:00 | NUR ---
Patient alert and oriented Patient currently resting in bed. Patient remains on 5L NC satting in the mid 90s. Patient on bipap at night. Patient reminded of the importance of coughing and deep breathing. Patient currently afib in the 80 on monitor. BP stable. Pulses palpable. +1 BLLE edema noted. BS active. Patient voiding in urinal adequately. IV sites intact. Heparin infusing @ 27. PTT due in morning. Heparin remains therapeutic. Skin intact. No breakdown noted. Patient denies any needs at this time. VS remain stable. Will continue to monitor.
[2017-09-07] VITALS (12 sets, daily range): BP systolic 101–171; BP diastolic 60–98; PULSE 60–98; TEMP 36.5–37.1; O2SAT 90–98
--- NOTE | 2017-09-07 | NUR ---
Previous assessment unchanged. Patient asleep in bed. Patient wearing bipap and tolerating well. VS remain stable. Heparin continues to infuse @27. Patient appears comfortable. Will continue to monitor
[2017-09-07] MEDS: LEVALBUTEROL 0.63MG/3 ML NEB INH SCH ×4 (01:50→18:41)
--- NOTE | 2017-09-07 04:00 | NUR ---
Previous assessment unchanged. Patient resting in bed. Patient requests bipap to come off so he can have a drink. Patient currently on 5L NC spo2 91%. Patient denies SOB. WOB is less and more relaxed. VS remain stable. Patient denies any further needs at this time. Will continue to monitor.
[2017-09-07 05:22] LABS: HEMATOCRIT 47.8 % (42-52); HEMOGLOBIN 14.2 g/dL (14.0-18.0); MEAN CELL VOLUME 90.2 fL (80-100); MEAN CORPUSCULAR HEMOGLOBIN 26.8 pg (25-34); MEAN PLATELET VOLUME 9.4 fL (7.4-10.4); PLATELET COUNT 121 K/uL (130-400); RED CELL DISTRIBUTION WIDTH CV 13.1 % (11.5-14.5); RED CELL DISTRIBUTION WIDTH SD 43.5 fL (36.4-46.3); WHITE BLOOD COUNT 5.87 K/uL (4.8-10.8)
[2017-09-07 05:24] LABS: MEAN CORPUSCULAR HGB CONC 29.7 g/dl (32-36)
[2017-09-07 05:39] LABS: INR 1.5 (0.9-1.1)
[2017-09-07 05:51] LABS: PTT PATIENT 61.1 SECONDS (21.0-31.0)
[2017-09-07 05:53] LABS: CALCIUM 8.8 mg/dl (8.5-10.1); CREATININE 0.95 mg/dl (0.60-1.40); POTASSIUM 4.1 mmol/L (3.5-5.1)
--- NOTE | 2017-09-07 05:58 | NUR ---
PTT theraputic at 61.1. No change in heparin gtt. Continues to infuse at 27ml/hr or 1350u/hr. IV intact. Next PTT due tomorrow AM.
--- NOTE | 2017-09-07 08:00 | NUR ---
Patient A+Ox4, in NAD. VSS. Continues in A-flutter on monitor. Denies any CP/pressure/palpitations. Pulses palpable. B/LLE edema much improved. Heparin drip continues to infuse at 27 ml/hr. Lung sounds are diminished throughout. Wore BiPAP most of night (says he did not wear it for about 2 hours in the middle of the night). Currently on 4L O2 with sats > 92%. Tolerating diet. Had BM this morning. Tolerating diet. Voiding CYU. Skin intact. #18 left hand saline locked; #18 left forearm WNL (infusing Heparin). Denies pain. Explained plan for day. Denies needs at this time. Will continue to monitor.
[2017-09-07] MEDS: AMIODARONE 200 MG TAB PO SCH ×2 (08:17→20:16)
[2017-09-07] MEDS: SPIRONOLACTONE 25 MG TAB PO SCH (08:17)
[2017-09-07] MEDS: EPINASTINE OP SCH ×2 (08:17→20:15)
[2017-09-07] MEDS: FUROSEMIDE 40 MG TAB PO SCH (08:18)
[2017-09-07] MEDS: METOPROLOL TARTRATE 25 MG TAB PO SCH ×2 (08:18→20:15)
[2017-09-07] MEDS: ASPIRIN 81 MG ECTAB PO SCH (08:18)
[2017-09-07] MEDS: CYANOCOBALAMIN 500 MCG TAB (VIT B-12) PO SCH (08:18)
--- NOTE | 2017-09-07 10:26 | NUR ---
banquet server on call case management note. Spoke with pt about discharge planning. Explained md recommendations of rehab. Pt does not really want to go to rehab but wants to talk with his son about it. Pt gave permission to speak with son. Attempted to call son. No answer. Notified nursing to call when son visits. Case management to follow pt. Addendum: 09/07/17 at 1332 by Price Guerrier SERV Spoke with pt and with permission family at bedside. Discussed discharge planning. Pt agreeable to rehab. List given. Pt choose referral to [facility]. With permission made referral. Case management to follow with pt.
--- NOTE | 2017-09-07 10:32 | Cardiology Follow-Up ---
Subjective General Date of Service: Sep 07, 2017. Pt evaluation today including: conversation w/ patient, chart review, lab review, review of studies History of Present Illness The patient is a 67 year old male Allergies Coded Allergies: [place] (Verified Allergy, Unknown, unknown, 09/03/17) Social History Smoking Status: Current Every Day Smoker Hx Tobacco Use In Past Year?: Yes Hx Alcohol Use - Type And Amou: Yes Hx Substance Use - Type And Am: No Review of Systems Respiratory: + shortness of breath (Improved), + dyspnea on exertion, No cough , No dyspnea at rest Cardiac: No chest pain, No edema, No palpitations Physical Exam Vital Signs Last Vital Signs Documentation Date Time Temp Pulse Resp B/P (MAP) Pulse Ox O2 Delivery O2 Flow Rate FiO2 09/07/17 07:47 36.8 60 18 118/62 (80) 95 09/07/17 07:12 40 09/07/17 07:11 BiPAP/CPAP 09/07/17 04:00 5.0 Physical Exam Constitutional: General Apperance: obese Level of Distress: chronically ill Psychiatric: Mental Status: active & alert Head: normocephalic ENMT: pertinent finding Lungs: Auscultation: no wheezing, no rales/crackles, deminished air movement, decreased breath sounds Cardiovascular: Heart Auscultation: no murmurs, no rubs, no gallops, irregular rate rhythm Peripheral Pulses: Bruits: none appreciated Abdomen: Bowel Sounds: normal Inspection & Palpation: soft, no tenderness, guarding & rebound, no masses, distended Extremities: no edema Assessment and Plan Assessment and Plan 1) Acute respiratory Failure 2) Chronic CO2 retainer 3) Severe RV dysfunction with Severe RV dilation and Flatenning of the IVS 4)REMBERTO and OHS 5) Right sided CHF 6) Mildly reduced LV systolic function with D shaped septum and flattened septal motion consistent with RV pressure/volume overload, EF 45-50%. 7. Afib with RVR Added aldactone with right sided CHF; continue with lasix; BLUEPRINT TRIMMER stable; Increase Aldactone as possible Continue low dose BB and amio 400mg BID; In and out of atrial Flutter--3.1 second Pause at 6:30 am--?? off Bipap--No plans for dig or invrease BB Amio BID through 12/26 then 400mg Daily x 1 month Heparin to coumadin bIPAP TO unload RV; Chronic O2 Daily weights, 2 Gm Na diet, CHF education Poor prognosis Laboratory Results Last 24 Hours Test 09/06/17 11:58 09/07/17 04:55 Activated Partial Thromboplast Time 58.5 SECONDS 61.1 SECONDS Partial Thromboplastin Ratio 2.3 2.4 White Blood Count 5.87 K/uL Red Blood Count 5.30 M/uL Hemoglobin 14.2 g/dL Hematocrit 47.8 % Mean Corpuscular Volume 90.2 fL Mean Corpuscular Hemoglobin 26.8 pg Mean Corpuscular Hemoglobin Concent 29.7 g/dl RDW Standard Deviation 43.5 fL RDW Coefficient of Variation 13.1 % Platelet Count 121 K/uL Mean Platelet Volume 9.4 fL Prothrombin Time 15.4 SECONDS Prothromb Time International Ratio 1.5 Sodium Level 134 mmol/L Potassium Level 4.1 mmol/L Chloride Level 93 mmol/L Carbon Dioxide Level 41 mmol/L Anion Gap 0.0 mmol/L Blood Urea Nitrogen 15 mg/dl Creatinine 0.95 mg/dl Est Creatinine Clear Calc Drug Dose 91.0 ml/min Estimated GFR () 94.9 Estimated GFR (Non- 81.9 BUN/Creatinine Ratio 16.1 Random Glucose 114 mg/dl Calcium Level 8.8 mg/dl Magnesium Level 2.1 mg/dl
--- NOTE | 2017-09-07 12:00 | NUR ---
Patient in NAD. VSS. Continues in A-flutter on monitor. Denies CP/pressure. Denies SOB. Did 2-step with respiratory therapy- needs 4L during ambulation and 2L at rest. No other assessment changes. Will wean resting O2. Will continue to monitor.
--- NOTE | 2017-09-07 15:09 | Progress Note ---
Subjective Date of Service: Sep 07, 2017. Subjective Pt evaluation today including: conversation w/ patient, conversation w/ family Pt is feeling overall improved. Still not quite to baseline, but better. Denies chest pain or SOB, even with ambulation. Family is present and states that he is still having issues at times with memory, but much better than prior to his admission and close to baseline mentation. He has been tolerating PO without issue. Pt denies fever, abd pain, n/v/c/d, LE pain or swelling. Review of Systems All Other Systems: Reviewed and Negative Objective Vital Signs Date Time Temp Pulse Resp B/P (MAP) Pulse Ox O2 Delivery O2 Flow Rate FiO2 09/07/17 14:17 88 20 96 Nasal Cannula 4.0 09/07/17 12:35 36.5 71 18 101/60 (74) 97 09/07/17 08:00 Nasal Cannula 4.0 09/07/17 07:47 36.8 60 18 118/62 (80) 95 Nasal Cannula 4.0 09/07/17 07:12 76 93 40 09/07/17 07:11 76 20 95 BiPAP/CPAP 40 09/07/17 04:49 36.8 98 18 122/70 (87) 95 CPAP 40 09/07/17 04:00 Nasal Cannula 5.0 09/07/17 01:54 76 20 98 BiPAP/CPAP 40 09/07/17 01:54 76 98 40 09/07/17 00:00 BiPAP 09/06/17 23:40 36.6 79 17 137/90 (106) 95 CPAP 40 09/06/17 22:03 83 98 40 09/06/17 20:00 Nasal Cannula 5.0 09/06/17 19:37 37.0 100 20 143/88 (106) 92 Nasal Cannula 6.0 09/06/17 19:12 71 18 69 Room Air 09/06/17 16:00 Nasal Cannula 5.0 09/06/17 15:29 37.1 74 20 145/79 (101) 92 Nasal Cannula 6.0 Physical Exam General Appearance: no apparent distress, + obese Eyes: normal inspection, EOMI, sclerae normal Neck: supple Respiratory/Chest: normal breath sounds, no respiratory distress Cardiovascular: no edema, + pertinent finding (irregular rhythm) Abdomen: non tender, soft Extremities: non-tender, no pedal edema Neurologic/Psychiatric: alert, normal mood/affect, oriented x 3 Skin: normal color, warm/dry Laboratory Results Last 24 Hours Test 09/07/17 04:55 White Blood Count 5.87 K/uL Red Blood Count 5.30 M/uL Hemoglobin 14.2 g/dL Hematocrit 47.8 % Mean Corpuscular Volume 90.2 fL Mean Corpuscular Hemoglobin 26.8 pg Mean Corpuscular Hemoglobin Concent 29.7 g/dl RDW Standard Deviation 43.5 fL RDW Coefficient of Variation 13.1 % Platelet Count 121 K/uL Mean Platelet Volume 9.4 fL Prothrombin Time 15.4 SECONDS Prothromb Time International Ratio 1.5 Activated Partial Thromboplast Time 61.1 SECONDS Partial Thromboplastin Ratio 2.4 Sodium Level 134 mmol/L Potassium Level 4.1 mmol/L Chloride Level 93 mmol/L Carbon Dioxide Level 41 mmol/L Anion Gap 0.0 mmol/L Blood Urea Nitrogen 15 mg/dl Creatinine 0.95 mg/dl Est Creatinine Clear Calc Drug Dose 91.0 ml/min Estimated GFR () 94.9 Estimated GFR (Non- 81.9 BUN/Creatinine Ratio 16.1 Random Glucose 114 mg/dl Calcium Level 8.8 mg/dl Magnesium Level 2.1 mg/dl Assessment and Plan This patient is a 67-year-old male with a history of hypertension, obesity, secondary polycythemia, who presented as a direct transfer from [facility] with new onset atrial flutter with RVR, acute on likely chronic hypercapnic and hypoxemic respiratory failure, and newly diagnosed systolic CHF. He reports he went to his PCP for his annual physical the morning of admission and his doctor noted a rapid heartbeat and called an ambulance for him. He was feeling weak at the time, but denied palpitations, lightheadedness , or chest pain. Upon arrival at [facility], he was in rapid atrial flutter with a 2-1 block and a heart rate of 145 bpm. He was bolused with IV Cardizem and placed on a Cardizem drip. He spontaneously converted to normal sinus rhythm, but then reverted to atrial fibrillation with a normal rate upon arrival to [facility]. He recently had his outpatient dose of metoprolol lowered to 25 mg by mouth twice a day due to lightheadedness. It was increased to 50 mg twice a day at [facility], but he became severely hypotensive requiring transfer to the intensive care unit shortly after arrival here. The metoprolol has since been held/reduced. His echo at [facility] showed an EF of 45%, with some global hypokinesis, but was otherwise normal. His initial chest x-ray was read as normal, but a repeat chest x-ray then showed developing signs of pulmonary vascular congestion and was consistent with acute CHF. He was persistently hypoxic there and an ABG was obtained which showed pH 7.26/PA CO2 86/PaO2 40. He was placed on BiPAP at that time, and repeat ABG was almost exactly the same , except his PaO2 had increased to 70. He is a previous smoker, he is obese, and has a thick neck. There is suspicion for undiagnosed REMBERTO and OHS. He is also a previous heavy smoker and continues to smoke 1 cigarette a day-he also may have undiagnosed COPD. He was given 1 dose of Lasix IV 40 mg 1 and a Werner catheter was placed prior to transfer to [facility]. After transfer to the intensive care unit here, he had a [place]-Sofia catheter placed and had evidence of moderate pulmonary hypertension on RHC, as well as left-sided diastolic and systolic heart failure. Paroxysmal atrial fibrillation/flutter with RVR-his blood pressure did not tolerate metoprolol 50 mg, but rates were still uncontrolled off AV mabel blockers. Restarted low-dose metoprolol 12.5 mg by mouth twice a day on 09/05. Rates still uncontrolled Has stabilized with his blood pressure and was transferred out of the intensive care unit on 09/04. -Continue metoprolol 12.5mg bid -Was on amiodarone drip 24 hours and transition to by mouth amiodarone 400 mg by mouth twice a day, planning for IV until at least 09/09 -Consult cardiology appreciated -Cards is considering digoxin but will holding on this for now- Dr. Obrien following -Continue full dose anticoagulation with heparin drip as bridge to Coumadin ( Eliquis was not cost affordable) -Treatment of suspected REMBERTO/OHS as below Acute on chronic hypercapnic and hypoxemic respiratory failure/suspect undiagnosed COPD and REMBERTO/Obesity hypoventilation syndrome/Current smoker/ Moderate Pulm HTN. -Continues on BiPAP intermittently throughout the day as well as continuously at nighttime. Seen by pulmonology and recommended increasing BiPAP settings to 20/6. -Continue BiPAP 20/6 continuously at nighttime and 4 hrs on/4 hrs off during daytime - qualifies for home BiPAP based on overnight oximetry -will need 2-step prior to d/c if going home vs rehab - will need follow-up with sleep medicine as an outpatient as well as formal PFTs -Continue nebulizers for decreased breath sounds and hypoxemia -Counseled on smoking cessation -Pt is planning to continue his 1 cig/day regimen and I discussed risks of this frankly with pt and family--family to rid home of all cigarettes prior to his return HTN/Acute newly diagnosed combined systolic and diastolic CHF/Pulm HTN/right- sided heart failure-likely secondary to his untreated severe REMBERTO and OHS, as well as possible COPD. Not likely to be ischemic, but may need ischemic eval at some point in the future. ECGs neg, serially neg troponins even under great cardiac stress seems unlikely to have significant CAD. ECHO with : * Normal LV chamber size with moderate concentric LVH. * Mildly reduced LV systolic function with D shaped septum and flattened septal motion consistent with RV pressure/volume overload, EF 45-50%. * Severely dilated RV chamber size with severely reduced RV systolic function. * Akinesis of the RV free wall with preserved funciton of RV apical wall motion. * No significant valvular pathology. * TR jet inadequate to accurately calculate PASP. * Mild biatrial enlargement. 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 and hypotension--> continue to hold but hopefully can add back on at very low dose in near future -continue aspirin -continue daily Lasix 40mg PO -Added low-dose Aldactone for right-sided heart failure 12.5 mg daily as per cardiology -Cardiology warns to not over diurese as he is dependent on preload for good cardiac output -Follow PRP for renal function and electrolytes -Treatment with BiPAP for REMBERTO/OHS as above -Discussed fluid restriction, low sodium diet, and eventually should have referral to pulmonary rehabilitation and weight loss program in the future -Discussed abstinence from alcohol and smoking cessation-he has not committed to either at this time -Patient desires palliative care consultation to help establish goals of care as he is not keen on the lifestyle recommendations for CHF-Palliative has seen him MARÍA ELENA in the setting of chronic kidney disease unknown stage-creatinine increased to 1.66 after hypotensive episode, now returned to 1.01 -Follow PRP -Renally dose all medications -Avoiding nephrotoxins -continue to hold lisinopril for now as above Secondary Polycythemia-hemoglobin is 15 at outside hospital, has received multiple phlebotomies in the past, but is likely secondary to smoking. Hgb here in 13-14 range -Follow CBC Prophylaxis-Heparin drip and Coumadin, follow INR Disposition-to home vs [facility] in 1-2 days Full code but does not desire prolonged life support if prognosis is very poor- palliative care consultation appreciated
--- NOTE | 2017-09-07 16:00 | NUR ---
Patient in NAD. Sitting on side of bed reading paper/watching football game. Denies pain. Vitals stable. SR on monitor on monitor with PAC's. Heparin infusing at 27 ml/hr. Patient throughout day has asked many questions about sodium intake/foods that are appropriate with his sodium restriction. Patient also aware that Coumadin has some dietary restrictions. Patient would benefit from flume worker consult- will order per protocol. Denies any further needs at this time. Will continue to monitor.
[2017-09-07] MEDS: WARFARIN SOD 5 MG TAB PO SCH (16:02)
[2017-09-07] MEDS: HEPARIN 25,000 UNIT/500ML D5W 500 ML IV PRN (16:04)
--- NOTE | 2017-09-07 20:00 | NUR ---
Patient alert and oriented. Patient currently sitting in chair. Patient requiring minimal standby assist when moving around room. Patient educated on fall safety. Patient verbalized understanding. Patient remains on 4L NC satting in the mid 92%. Patient completed 2-step this afternoon. 2L placed on patient when sitting in chair, but spo2 was 86%. 4L NC on patient at the moment. Patient denies any SOB. Patient to be on bipap at night while asleep. Patient reminded of the importance of coughing and deep breathing. Patient currently SR with PAC/PVCs on monitor. BP stable. Pulses palpable. +1 BLLE edema noted. BS active, BM earlier this afternoon. Patient voiding in urinal adequately. IV sites intact. Heparin infusing @ 27. PTT due in morning. Heparin remains therapeutic. 5mg of Coumadin given this evening. INR 1.5. Skin intact. No breakdown noted. Education of low sodium foods and what to eat while on Coumadin was taught to patient. Patient is eager to learn and is asking questions, but patient needs reinforcement. Patient denies any further needs at this time. VS remain stable. Will continue to monitor. Plans to discharge to [facility] for rehab.
[2017-09-08] VITALS (10 sets, daily range): BP systolic 117–166; BP diastolic 75–99; PULSE 20–96; TEMP 36.6–36.9; O2SAT 92–98
[2017-09-08] MEDS: LEVALBUTEROL 0.63MG/3 ML NEB INH SCH ×2 (02:00→07:15)
[2017-09-08 05:15] LABS: PTT PATIENT 69.7 SECONDS (21.0-31.0)
--- NOTE | 2017-09-08 08:00 | NUR ---
A: Assessment completed. Refer to EMR for assessment details. Afib/flutter on tele. Appears to be NSR at times, but HR increases into 120s-130s aflutter when out of bed with activity. Patient denies any chest pain or shortness of breath at this time. Verbalized "feeling pretty good today". Denies any other needs or complaints at this time. Hypertensive, but hasn't taken AM meds yet. Agrees to ring for assistance. Will continue to monitor.
[2017-09-08] MEDS: AMIODARONE 200 MG TAB PO SCH ×2 (08:36→20:01)
[2017-09-08] MEDS: ASPIRIN 81 MG ECTAB PO SCH (08:36)
[2017-09-08] MEDS: CYANOCOBALAMIN 500 MCG TAB (VIT B-12) PO SCH (08:36)
[2017-09-08] MEDS: SPIRONOLACTONE 25 MG TAB PO SCH (08:36)
[2017-09-08] MEDS: METOPROLOL TARTRATE 25 MG TAB PO SCH ×2 (08:36→20:01)
[2017-09-08] MEDS: FUROSEMIDE 40 MG TAB PO SCH (08:37)
--- NOTE | 2017-09-08 10:09 | Progress Note ---
Subjective Date of Service: Sep 08, 2017. Subjective Pt evaluation today including: conversation w/ patient Pt is continuing to feel improved. He has been OOB without SOB or chest pain. He feels his mentation is back to his usual. Tolerating PO without issue. Pt denies fever, abd pain, n/v/c/d, LE pain or swelling. Review of Systems All Other Systems: Reviewed and Negative Objective Vital Signs Date Time Temp Pulse Resp B/P (MAP) Pulse Ox O2 Delivery O2 Flow Rate FiO2 09/08/17 08:00 Nasal Cannula 4.0 09/08/17 07:27 36.9 88 157/88 (111) 96 4.0 20 09/08/17 07:15 89 18 93 Nasal Cannula 4.0 09/08/17 04:15 36.7 79 17 117/77 (90) 94 CPAP 30 09/08/17 04:00 BiPAP 09/08/17 02:02 71 93 30 09/08/17 02:01 71 12 93 BiPAP/CPAP 09/08/17 00:00 BiPAP 09/07/17 23:40 37.1 76 20 171/91 (117) 96 CPAP 30 09/07/17 23:16 80 97 30 09/07/17 20:00 Nasal Cannula 4.0 09/07/17 19:23 36.9 84 20 134/98 (110) 91 Nasal Cannula 3.0 09/07/17 18:45 96 16 90 Nasal Cannula 3.0 09/07/17 16:00 Nasal Cannula 3.0 09/07/17 15:35 37.0 97 20 133/88 (103) 92 Nasal Cannula 3.0 09/07/17 14:17 88 20 96 Nasal Cannula 4.0 09/07/17 12:35 36.5 71 18 101/60 (74) 97 09/07/17 12:00 Nasal Cannula 4.0 Physical Exam Comments: General Appearance: no apparent distress, + obese Eyes: normal inspection, EOMI, sclerae normal Neck: supple Respiratory/Chest: normal breath sounds, no respiratory distress Cardiovascular: regular rate, irregular rhythm, no edema Abdomen: non tender, soft Extremities: non-tender, no pedal edema Neurologic/Psychiatric: alert, normal mood/affect, oriented x 3 Skin: normal color, warm/dry Laboratory Results Last 24 Hours Test 12/25/17 04:33 Prothrombin Time 31.0 SECONDS Prothromb Time International Ratio 3.0 Activated Partial Thromboplast Time 69.7 SECONDS Partial Thromboplastin Ratio 2.7 Assessment and Plan This patient is a 67-year-old male with a history of hypertension, obesity, secondary polycythemia, who presented as a direct transfer from [facility] with new onset atrial flutter with RVR, acute on likely chronic hypercapnic and hypoxemic respiratory failure, and newly diagnosed systolic CHF. He reports he went to his PCP for his annual physical the morning of admission and his doctor noted a rapid heartbeat and called an ambulance for him. He was feeling weak at the time, but denied palpitations, lightheadedness , or chest pain. Upon arrival at [facility], he was in rapid atrial flutter with a 2-1 block and a heart rate of 145 bpm. He was bolused with IV Cardizem and placed on a Cardizem drip. He spontaneously converted to normal sinus rhythm, but then reverted to atrial fibrillation with a normal rate upon arrival to [facility]. He recently had his outpatient dose of metoprolol lowered to 25 mg by mouth twice a day due to lightheadedness. It was increased to 50 mg twice a day at [facility], but he became severely hypotensive requiring transfer to the intensive care unit shortly after arrival here. The metoprolol has since been held/reduced. His echo at [facility] showed an EF of 45%, with some global hypokinesis, but was otherwise normal. His initial chest x-ray was read as normal, but a repeat chest x-ray then showed developing signs of pulmonary vascular congestion and was consistent with acute CHF. He was persistently hypoxic there and an ABG was obtained which showed pH 7.26/PA CO2 86/PaO2 40. He was placed on BiPAP at that time, and repeat ABG was almost exactly the same , except his PaO2 had increased to 70. He is a previous smoker, he is obese, and has a thick neck. There is suspicion for undiagnosed REMBERTO and OHS. He is also a previous heavy smoker and continues to smoke 1 cigarette a day-he also may have undiagnosed COPD. He was given 1 dose of Lasix IV 40 mg 1 and a Werner catheter was placed prior to transfer to [facility]. After transfer to the intensive care unit here, he had a [place]-Sofia catheter placed and had evidence of moderate pulmonary hypertension on RHC, as well as left-sided diastolic and systolic heart failure. Paroxysmal atrial fibrillation/flutter with RVR-his blood pressure did not tolerate metoprolol 50 mg, but rates were still uncontrolled off AV mabel blockers. Restarted low-dose metoprolol 12.5 mg by mouth twice a day on 09/05. Rates still uncontrolled Has stabilized with his blood pressure and was transferred out of the intensive care unit on 09/04. -Continue metoprolol 12.5mg bid -Was on amiodarone drip 24 hours and transition to by mouth amiodarone 400 mg by mouth twice a day, planning for IV until at least 09/09 -Consult cardiology appreciated -Cards is considering digoxin but will holding on this for now- Dr. Obrien following -Continue full dose anticoagulation with heparin drip as bridge to Coumadin ( Eliquis was not cost affordable) INR quickly increased to 3 on 5mg (after only 3 doses), will decrease to 3mg on 09/08 and monitor -Treatment of suspected REMBERTO/OHS as below Acute on chronic hypercapnic and hypoxemic respiratory failure/suspect undiagnosed COPD and REMBERTO/Obesity hypoventilation syndrome/Current smoker/ Moderate Pulm HTN. -Continues on BiPAP intermittently throughout the day as well as continuously at nighttime. Seen by pulmonology and recommended increasing BiPAP settings to 20/6. -Continue BiPAP 20/6 continuously at nighttime and 4 hrs on/4 hrs off during daytime - qualifies for home BiPAP based on overnight oximetry -will need 2-step prior to d/c if going home vs rehab - will need follow-up with sleep medicine as an outpatient as well as formal PFTs -Continue nebulizers for decreased breath sounds and hypoxemia -Counseled on smoking cessation -Pt is planning to continue his 1 cig/day regimen and I discussed risks of this frankly with pt and family--family to rid home of all cigarettes prior to his return HTN/Acute newly diagnosed combined systolic and diastolic CHF/Pulm HTN/right- sided heart failure-likely secondary to his untreated severe REMBERTO and OHS, as well as possible COPD. Not likely to be ischemic, but may need ischemic eval at some point in the future. ECGs neg, serially neg troponins even under great cardiac stress seems unlikely to have significant CAD. ECHO with : * Normal LV chamber size with moderate concentric LVH. * Mildly reduced LV systolic function with D shaped septum and flattened septal motion consistent with RV pressure/volume overload, EF 45-50%. * Severely dilated RV chamber size with severely reduced RV systolic function. * Akinesis of the RV free wall with preserved funciton of RV apical wall motion. * No significant valvular pathology. * TR jet inadequate to accurately calculate PASP. * Mild biatrial enlargement. Serial trops negative at outside facility -was holding lisinopril due to weekend anchor bump and hypotension--> continue to hold but hopefully can add back on at very low dose in near future -continue aspirin -continue daily Lasix 40mg PO -Added low-dose Aldactone for right-sided heart failure 12.5 mg daily as per cardiology -Cardiology warns to not over diurese as he is dependent on preload for good cardiac output -Follow PRP for renal function and electrolytes -Treatment with BiPAP for REMBERTO/OHS as above -Discussed fluid restriction, low sodium diet, and eventually should have referral to pulmonary rehabilitation and weight loss program in the future -Discussed abstinence from alcohol and smoking cessation-he has not committed to either at this time -Patient desires palliative care consultation to help establish goals of care as he is not keen on the lifestyle recommendations for CHF-Palliative has seen him MARÍA ELENA in the setting of chronic kidney disease unknown stage-creatinine increased to 1.66 after hypotensive episode, now returned to 1.01 -Follow PRP -Renally dose all medications -Avoiding nephrotoxins -continue to hold lisinopril for now as above Secondary Polycythemia-hemoglobin is 15 at outside hospital, has received multiple phlebotomies in the past, but is likely secondary to smoking. Hgb here in 13-14 range -Follow CBC Prophylaxis-Heparin drip and Coumadin, follow INR Disposition-to home vs [facility] in 1-2 days Full code but does not desire prolonged life support if prognosis is very poor- palliative care consultation appreciated
--- NOTE | 2017-09-08 10:40 | Cardiology Follow-Up ---
Subjective General Date of Service: Sep 08, 2017. Pt evaluation today including: conversation w/ patient, chart review, lab review, review of studies History of Present Illness The patient is a 67 year old male Allergies Coded Allergies: [place] (Verified Allergy, Unknown, unknown, 09/03/17) Social History Smoking Status: Current Every Day Smoker Hx Tobacco Use In Past Year?: Yes Hx Alcohol Use - Type And Amou: Yes Hx Substance Use - Type And Am: No Review of Systems Respiratory: + dyspnea on exertion, No cough, No dyspnea at rest Cardiac: No chest pain, No edema, No palpitations Physical Exam Vital Signs Last Vital Signs Documentation Date Time Temp Pulse Resp B/P (MAP) Pulse Ox O2 Delivery O2 Flow Rate FiO2 09/08/17 08:00 Nasal Cannula 4.0 09/08/17 07:27 36.9 88 157/88 (111) 96 20 09/08/17 07:15 18 09/08/17 04:15 30 Physical Exam Constitutional: General Apperance: obese Level of Distress: chronically ill Psychiatric: Mental Status: active & alert Head: normocephalic ENMT: pertinent finding Lungs: Auscultation: no wheezing, no rales/crackles, deminished air movement, decreased breath sounds Cardiovascular: Heart Auscultation: no murmurs, no rubs, no gallops, irregular rate rhythm Peripheral Pulses: Bruits: none appreciated Abdomen: Bowel Sounds: normal Inspection & Palpation: soft, no tenderness, guarding & rebound, no masses, distended Extremities: no edema Assessment and Plan Assessment and Plan 1) Acute respiratory Failure 2) Chronic CO2 retainer 3) Severe RV dysfunction with Severe RV dilation and Flatenning of the IVS 4)REMBERTO and OHS 5) Right sided CHF 6) Mildly reduced LV systolic function with D shaped septum and flattened septal motion consistent with RV pressure/volume overload, EF 45-50%. 7. 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; Continue low dose BB and amio 400mg BID; In and out of atrial Flutter--3.1 second Pause at 6:30 am on 09/07 and 1.9 second overnight- HR's in the 80-90's at rest and up to 120's with activity--ambulate to see peak HR controlled Amio BID through 09/09 then 400mg Daily x 1 month Heparin to coumadin--INR 3.0 today, D/c heparin bIPAP TO unload RV; Chronic O2 Daily weights, 2 Gm Na diet, CHF education Laboratory Results Last 24 Hours Test 09/08/17 04:33 Prothrombin Time 31.0 SECONDS Prothromb Time International Ratio 3.0 Activated Partial Thromboplast Time 69.7 SECONDS Partial Thromboplastin Ratio 2.7
[2017-09-08] MEDS: LEValbuterol HFA 15GM INHALER INH SCH ×2 (12:00→18:00)
[2017-09-08] MEDS ORDERED: WARFARIN SOD 3 MG TAB PO SCH (16:00)
--- NOTE | 2017-09-08 16:00 | NUR ---
Patient reassessment completed. Refer to EMR for assessment details. Afib/flutter/NSR at times on tele. Patient denies any chest pain or shortness of breath at this time. Denies any other needs or complaints at this time. Agrees to ring for assistance. Call vanessa within reach. Will continue to monitor.
[2017-09-08] MEDS: EPINASTINE OP SCH (20:04)
--- NOTE | 2017-09-08 20:08 | NUR ---
A: Assessment completed- see EMR for full detail; VS- BP remains hypertensive - see EMR; AA&Ox4, Appropriate; A. flutter rate 100's, noted on monitor; Denies CP/SOB, On 4 LPM NC; voiding in large amounts via urinal; pt. denies pain at this time; Pt. currently resting comfortably in bed visitors at bedside; no needs apparent or verbalized at this time; IV site intact; labs reviewed; safety measures reviewed; call-vanessa & items of necessity in reach, encouraged to ring for assistance; will continue to monitor & assess.
[2017-09-09] VITALS (10 sets, daily range): BP systolic 120–165; BP diastolic 69–91; PULSE 72–104; TEMP 36.4–37.2; O2SAT 90–97
--- NOTE | 2017-09-09 00:04 | NUR ---
A: Assessment completed and updated- see EMR for full detail; VSS- see EMR; AA&Ox4, Appropriate; NSR, noted on monitor at this time; Denies CP/SOB, BiPAP at current; IV site intact; safety measures reviewed; call-vanessa & items of necessity in reach, encouraged to ring for assistance; will continue to monitor & assess.
--- NOTE | 2017-09-09 03:35 | NUR ---
A: Assessment completed and updated- see EMR for full detail; VSS- see EMR; AA&Ox4, Appropriate; NSR, noted on monitor at this time; Denies CP/SOB, BiPAP at current; will continue to monitor & assess.
[2017-09-09 04:46] LABS: HEMATOCRIT 47.3 % (42-52); HEMOGLOBIN 14.3 g/dL (14.0-18.0); MEAN CELL VOLUME 88.6 fL (80-100); MEAN CORPUSCULAR HEMOGLOBIN 26.8 pg (25-34); MEAN PLATELET VOLUME 9.6 fL (7.4-10.4); PLATELET COUNT 152 K/uL (130-400); RED CELL DISTRIBUTION WIDTH CV 13.1 % (11.5-14.5); RED CELL DISTRIBUTION WIDTH SD 42.7 fL (36.4-46.3)
[2017-09-09 04:49] LABS: MEAN CORPUSCULAR HGB CONC 30.2 g/dl (32-36)
[2017-09-09 05:01] LABS: INR 4.5 (0.9-1.1)
[2017-09-09 05:04] LABS: CALCIUM 8.9 mg/dl (8.5-10.1); CREATININE 1.07 mg/dl (0.60-1.40); POTASSIUM 4.4 mmol/L (3.5-5.1)
[2017-09-09] MEDS: LEValbuterol HFA 15GM INHALER INH SCH ×4 (05:52→18:02)
[2017-09-09 06:51] LABS: TOTAL PROTEIN 6.5 gm/dl (6.4-8.2)
[2017-09-09] MEDS: FUROSEMIDE 40 MG TAB PO SCH (07:43)
[2017-09-09] MEDS: ASPIRIN 81 MG ECTAB PO SCH (07:43)
[2017-09-09] MEDS: AMIODARONE 200 MG TAB PO SCH ×2 (07:43→19:58)
[2017-09-09] MEDS: CYANOCOBALAMIN 500 MCG TAB (VIT B-12) PO SCH (07:43)
[2017-09-09] MEDS: SPIRONOLACTONE 25 MG TAB PO SCH (07:44)
--- NOTE | 2017-09-09 08:04 | NUR ---
Pt resting in bed comfortably. A/O x4. Denies any issues. Sinus on monitor @ 80. Lungs dim on 3l nc. No respiratory distress noted. Refer to EMR for credit assessment analyst and vitals. Call vanessa within reach. Will continue to monitor.
[2017-09-09] MEDS: EPINASTINE OP SCH ×2 (09:00→20:00)
[2017-09-09] MEDS: METOPROLOL TARTRATE 25 MG TAB PO SCH ×3 (09:00→19:58)
--- NOTE | 2017-09-09 11:55 | NUR ---
Pt resting in bed comfortably. A/O x4. Denies any issues. Sinus/ A-fib on monitor @ 106. Lungs clear/dim on RA. 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 Call vanessa within reach. Will continue to monitor.
--- NOTE | 2017-09-09 12:08 | NUR ---
Dr. Trevino called to inform of heart rate climbing up to 110 A-fib. Instructed that Dr. Burrows has seen and to give 12.5 metoprolol.
--- NOTE | 2017-09-09 14:59 | Cardiology Follow-Up ---
Subjective Date of Service: Sep 09, 2017. Pt evaluation today including: conversation w/ patient, physical exam, chart review, review of studies, review of inpatient medication list History of Present Illness He is feeling quite well today, he is sitting in bed without oxygen and feels very well. He has been able to get up and around and seems to be significantly improved since presentation. Social History Smoking Status: Current Every Day Smoker History of Alcohol Use: Yes Review of Systems Respiratory: + dyspnea on exertion, No cough, No dyspnea at rest Cardiac: No chest pain, No edema, No palpitations Medications Cardiovascular: Item Value Date Time Spironolactone 25 mg 09/09/17 0900 (Aldactone Tab) QAM/PO 09/09/17 0744 Warfarin Sodium 3 mg 09/08/17 1600 (Coumadin Tab) DAILY@16/PO 09/08/17 1600 Furosemide 40 mg 09/07/17 0900 (Lasix Tab) QAM/PO 09/09/17 0743 Amiodarone HCl 400 mg 09/05/17 2100 (Cordarone Tab) BID/PO 09/09/17 0743 Metoprolol 12.5 mg 09/05/17 2100 Tartrate BID/PO 09/08/172000 (Lopressor Tab) Aspirin 81 mg 09/04/17 0900 (Ecotrin Tab) QAM/PO 09/09/17 0743 Objective Vital Signs Past 12 Hours Date Time Temp Pulse Resp B/P (MAP) Pulse Ox O2 Delivery O2 Flow Rate FiO2 09/09/17 08:00 96 Nasal Cannula 3.0 30 09/09/17 07:22 36.8 72 18 165/91 (115) 92 4.0 09/09/17 04:00 Nasal Cannula 2.0 09/09/17 03:35 36.7 84 16 120/83 (95) 96 CPAP 30 09/09/17 00:01 Nasal Cannula 2.0 09/08/17 23:30 36.6 69 17 121/75 (90) 96 CPAP 30 09/08/17 22:36 70 98 30 Last Recorded Weight-Kilograms: 110.400 Physical Exam Constitutional: General Apperance: obese Level of Distress: chronically ill Lungs: Auscultation: no wheezing, no rales/crackles, deminished air movement, decreased breath sounds Cardiovascular: Heart Auscultation: no murmurs, no rubs, no gallops, irregular rate rhythm Peripheral Pulses: Bruits: none appreciated Extremities: no edema Data Laboratory Results: Last 24 Hours Test 09/09/17 04:29 White Blood Count 6.00 K/uL Red Blood Count 5.34 M/uL Hemoglobin 14.3 g/dL Hematocrit 47.3 % Mean Corpuscular Volume 88.6 fL Mean Corpuscular Hemoglobin 26.8 pg Mean Corpuscular Hemoglobin Concent 30.2 g/dl RDW Standard Deviation 42.7 fL RDW Coefficient of Variation 13.1 % Platelet Count 152 K/uL Mean Platelet Volume 9.6 fL Prothrombin Time 45.5 SECONDS Prothromb Time International Ratio 4.5 Sodium Level 135 mmol/L Potassium Level 4.4 mmol/L Chloride Level 94 mmol/L Carbon Dioxide Level 40 mmol/L Anion Gap 1.0 mmol/L Blood Urea Nitrogen 17 mg/dl Creatinine 1.07 mg/dl Est Creatinine Clear Calc Drug Dose 80.9 ml/min Estimated GFR () 82.2 Estimated GFR (Non- 71.0 BUN/Creatinine Ratio 15.6 Random Glucose 104 mg/dl Calcium Level 8.9 mg/dl Magnesium Level 2.1 mg/dl Total Bilirubin 0.5 mg/dl Direct Bilirubin 0.2 mg/dl Aspartate Amino Transf (AST/SGOT) 50 U/L Alanine Aminotransferase (ALT/SGPT) 78 U/L Alkaline Phosphatase 65 U/L Total Protein 6.5 gm/dl Albumin 3.0 gm/dl Telemetry reviewed: Paroxysmal atrial fibrillation or flutter continues, with postconversion pauses of up to 3.3 seconds 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 Assessment and Plan #1. Atrial fibrillation: He continues to have paroxysmal atrial fibrillation, on beta blockade and amiodarone his heart rate is reasonably well controlled but he is having postconversion pauses. These are asymptomatic and he needs rate control, he is on very low-dose metoprolol but I would continue it. #2. Left ventricular dysfunction: He does seem to have some left ventricular dysfunction although it is not severe. I would continue his current dose of metoprolol even though it is quite low for treatment of a cardiomyopathy. #3. Enlarged right heart: He seems to have pulmonary hypertension related to long-standing hypoxia and sleep apnea, no acute event such as pulmonary embolism to explain it. I don't know how reversible this is but symptomatically he seems to be doing better. Thank you for allowing me to participate in his care.
--- NOTE | 2017-09-09 15:38 | Progress Note ---
Subjective Date of Service: Sep 09, 2017. Subjective Pt evaluation today including: conversation w/ patient, conversation w/ family Pt is off of O2 and doing well. No SOB at rest or with ambulation. Tolerating PO without issue. Pt denies fever, abd pain, n/v/c/d, LE pain or swelling. Review of Systems All Other Systems: Reviewed and Negative Objective Vital Signs Date Time Temp Pulse Resp B/P (MAP) Pulse Ox O2 Delivery O2 Flow Rate FiO2 09/09/17 12:00 96 Nasal Cannula 3.0 30 09/09/17 11:09 36.6 104 18 150/84 (106) 91 4.0 09/09/17 08:00 96 Nasal Cannula 3.0 30 09/09/17 07:22 36.8 72 18 165/91 (115) 92 4.0 09/09/17 04:00 Nasal Cannula 2.0 09/09/17 03:35 36.7 84 16 120/83 (95) 96 CPAP 30 09/09/17 00:01 Nasal Cannula 2.0 09/08/17 23:30 36.6 69 17 121/75 (90) 96 CPAP 30 09/08/17 22:36 70 98 30 09/08/17 20:00 Nasal Cannula 2.0 09/08/17 19:42 36.7 96 20 146/96 (113) 92 Nasal Cannula 2.0 09/08/17 16:00 Nasal Cannula 4.0 09/08/17 15:49 36.6 78 20 166/99 (121) 94 Nasal Cannula 3.0 Physical Exam Comments: General Appearance: no apparent distress, + obese Eyes: normal inspection, EOMI, sclerae normal Respiratory/Chest: normal breath sounds, no respiratory distress Cardiovascular: regular rate, irregular rhythm, no edema Abdomen: non tender, soft Extremities: non-tender, no pedal edema Neurologic/Psychiatric: alert, normal mood/affect, oriented x 3 Skin: normal color, warm/dry Laboratory Results Last 24 Hours Test 09/09/17 04:29 White Blood Count 6.00 K/uL Red Blood Count 5.34 M/uL Hemoglobin 14.3 g/dL Hematocrit 47.3 % Mean Corpuscular Volume 88.6 fL Mean Corpuscular Hemoglobin 26.8 pg Mean Corpuscular Hemoglobin Concent 30.2 g/dl RDW Standard Deviation 42.7 fL RDW Coefficient of Variation 13.1 % Platelet Count 152 K/uL Mean Platelet Volume 9.6 fL Prothrombin Time 45.5 SECONDS Prothromb Time International Ratio 4.5 Sodium Level 135 mmol/L Potassium Level 4.4 mmol/L Chloride Level 94 mmol/L Carbon Dioxide Level 40 mmol/L Anion Gap 1.0 mmol/L Blood Urea Nitrogen 17 mg/dl Creatinine 1.07 mg/dl Est Creatinine Clear Calc Drug Dose 80.9 ml/min Estimated GFR () 82.2 Estimated GFR (Non- 71.0 BUN/Creatinine Ratio 15.6 Random Glucose 104 mg/dl Calcium Level 8.9 mg/dl Magnesium Level 2.1 mg/dl Total Bilirubin 0.5 mg/dl Direct Bilirubin 0.2 mg/dl Aspartate Amino Transf (AST/SGOT) 50 U/L Alanine Aminotransferase (ALT/SGPT) 78 U/L Alkaline Phosphatase 65 U/L Total Protein 6.5 gm/dl Albumin 3.0 gm/dl Assessment and Plan This patient is a 67-year-old male with a history of hypertension, obesity, secondary polycythemia, who presented as a direct transfer from [facility] with new onset atrial flutter with RVR, acute on likely chronic hypercapnic and hypoxemic respiratory failure, and newly diagnosed systolic CHF. He reports he went to his PCP for his annual physical the morning of admission and his doctor noted a rapid heartbeat and called an ambulance for him. He was feeling weak at the time, but denied palpitations, lightheadedness , or chest pain. Upon arrival at [facility], he was in rapid atrial flutter with a 2-1 block and a heart rate of 145 bpm. He was bolused with IV Cardizem and placed on a Cardizem drip. He spontaneously converted to normal sinus rhythm, but then reverted to atrial fibrillation with a normal rate upon arrival to [facility]. He recently had his outpatient dose of metoprolol lowered to 25 mg by mouth twice a day due to lightheadedness. It was increased to 50 mg twice a day at [facility], but he became severely hypotensive requiring transfer to the intensive care unit shortly after arrival here. The metoprolol has since been held/reduced. His echo at [facility] showed an EF of 45%, with some global hypokinesis, but was otherwise normal. His initial chest x-ray was read as normal, but a repeat chest x-ray then showed developing signs of pulmonary vascular congestion and was consistent with acute CHF. He was persistently hypoxic there and an ABG was obtained which showed pH 7.26/PA CO2 86/PaO2 40. He was placed on BiPAP at that time, and repeat ABG was almost exactly the same , except his PaO2 had increased to 70. He is a previous smoker, he is obese, and has a thick neck. There is suspicion for undiagnosed REMBERTO and OHS. He is also a previous heavy smoker and continues to smoke 1 cigarette a day-he also may have undiagnosed COPD. He was given 1 dose of Lasix IV 40 mg 1 and a Werner catheter was placed prior to transfer to [facility]. After transfer to the intensive care unit here, he had a Jefferson-Sofia catheter placed and had evidence of moderate pulmonary hypertension on RHC, as well as left-sided diastolic and systolic heart failure. Paroxysmal atrial fibrillation/flutter with RVR-his blood pressure did not tolerate metoprolol 50 mg, but rates were still uncontrolled off AV mabel blockers. Has stabilized with his blood pressure and was transferred out of the intensive care unit on 09/04. -Continue metoprolol 12.5mg bid -Was on amiodarone drip 24 hours and transitioned to PO amiodarone 400 mg by mouth twice a day, still with control issues -Consult cardiology appreciated -Continue full dose anticoagulation with heparin drip as bridge to Coumadin ( Eliquis was not cost affordable) INR quickly increased to 3 on 5mg (after only 3 doses), decreased to 3mg on and INR increased further to 4.5, hold 09/09 dose -Treatment of suspected REMBERTO/OHS as below Acute on chronic hypercapnic and hypoxemic respiratory failure/suspect undiagnosed COPD and REMBERTO/Obesity hypoventilation syndrome/Current smoker/ Moderate Pulm HTN. -Continues on BiPAP intermittently throughout the day as well as continuously at nighttime. Seen by pulmonology and recommended increasing BiPAP settings to 20/6. -Continue BiPAP 20/6 continuously at nighttime and 4 hrs on/4 hrs off during daytime - qualifies for home BiPAP based on overnight oximetry -will need 2-step prior to d/c if going home vs rehab - will need follow-up with sleep medicine as an outpatient as well as formal PFTs, planning to follow with Dr. Velazco -Continue nebulizers for decreased breath sounds and hypoxemia -Counseled on smoking cessation -Pt is planning to continue his 1 cig/day regimen and I discussed risks of this frankly with pt and family--family to rid home of all cigarettes prior to his return, especially if on O2 HTN/Acute newly diagnosed combined systolic and diastolic CHF/Pulm HTN/right- sided heart failure-likely secondary to his untreated severe REMBERTO and OHS, as well as possible COPD. Not likely to be ischemic, but may need ischemic eval at some point in the future. ECGs neg, serially neg troponins even under great cardiac stress seems unlikely to have significant CAD. ECHO with : * Normal LV chamber size with moderate concentric LVH. * Mildly reduced LV systolic function with D shaped septum and flattened septal motion consistent with RV pressure/volume overload, EF 45-50%. * Severely dilated RV chamber size with severely reduced RV systolic function. * Akinesis of the RV free wall with preserved funciton of RV apical wall motion. * No significant valvular pathology. * TR jet inadequate to accurately calculate PASP. * Mild biatrial enlargement. 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--> continue to hold but hopefully can add back on at very low dose in near future -continue aspirin -continue daily Lasix 40mg PO -Added low-dose Aldactone for right-sided heart failure 12.5 mg daily as per cardiology -Cardiology warns to not over diurese as he is dependent on preload for good cardiac output -Follow PRP for renal function and electrolytes -Treatment with BiPAP for REMBERTO/OHS as above -Discussed fluid restriction, low sodium diet, and eventually should have referral to pulmonary rehabilitation and weight loss program in the future -Discussed abstinence from alcohol and smoking cessation-he has not committed to either at this time -Patient desires palliative care consultation to help establish goals of care as he is not keen on the lifestyle recommendations for CHF-Palliative has seen him MARÍA ELENA in the setting of chronic kidney disease unknown stage-creatinine increased to 1.66 after hypotensive episode, now returned to 1.01 -Follow PRP -Renally dose all medications -Avoiding nephrotoxins -continue to hold lisinopril for now as above Secondary Polycythemia-hemoglobin is 15 at outside hospital, has received multiple phlebotomies in the past, but is likely secondary to smoking. Hgb here in 13-14 range -Follow CBC Prophylaxis-Heparin drip and Coumadin, follow INR Disposition-to [facility] once afib is better controlled Full code but does not desire prolonged life support if prognosis is very poor- palliative care consultation appreciated
--- NOTE | 2017-09-09 16:30 | NUR ---
A: Pt. is A&OX4, denies any complaints sitting at edge of bed. A flutter on monitor in 70s. No CP or palpitations. No edema. Tolerating room air at 90-91%. Denies SOB. Voiding in urinal. Educated and reminded about fluid restriction. Verbalized understanding. Will continue to closely monitor
--- NOTE | 2017-09-09 16:48 | NUR ---
Consult received re: Coumadin diet education. Diet education and printed material provided to Pt re: Coumadin/Vitamin K diet. Pt verbalized understanding. Name and number provided for any f/u questions. Pt with a few questions re: AHA diet education that had been provided earlier in admission. Questions answered; Pt verbalized understanding to these, as well. Will continue to work with Pt and monitor Pt's labs, weights, PO intake, need for additional education
--- NOTE | 2017-09-09 20:00 | NUR ---
A: Assessment unchanged. Denies SOB or difficulty breathing on RA. Telemetry intact showing a flutter 2:1 conduction with rate in 80s. Denies CP or palpitations. Voiding in urinal. Denies any pain. See EMR for full head to toe assessment. Call vanessa within reach, all needs addressed. Will continue to closely monitor
[2017-09-10] VITALS (7 sets, daily range): BP systolic 121–155; BP diastolic 82–92; PULSE 54–87; TEMP 36.5–36.9; O2SAT 90–96
--- NOTE | 2017-09-10 | NUR ---
Assessment completed; see emr. Aflutter/NSR per telemetry; HR 80 per telemetry. Lungs decreased throughout. Bipap on now. Pt denies sob at rest. Pt denies chest pain. Remains on 1500cc fluid restriction; teaching and reinforcement given. Call vanessa within touch. Continue to monitor closely.
--- NOTE | 2017-09-10 04:00 | NUR ---
Pt awake; would like his bipap off. Removed. Assessment completed; see emr. A/O x 4. VSS. No acute resp distress present at this time. Lungs remain diminished. Pt denies chest pain or sob at rest. Call vanessa remains within touch. Continue to monitor closely.
[2017-09-10 06:03] LABS: INR 5.3 (0.9-1.1)
[2017-09-10] MEDS: SPIRONOLACTONE 25 MG TAB PO SCH (07:55)
[2017-09-10] MEDS: ASPIRIN 81 MG ECTAB PO SCH (07:56)
[2017-09-10] MEDS: AMIODARONE 200 MG TAB PO SCH ×2 (07:56→19:54)
[2017-09-10] MEDS: CYANOCOBALAMIN 500 MCG TAB (VIT B-12) PO SCH (07:56)
[2017-09-10] MEDS: METOPROLOL TARTRATE 25 MG TAB PO SCH ×2 (07:57→19:54)
[2017-09-10] MEDS: FUROSEMIDE 40 MG TAB PO SCH (07:57)
[2017-09-10] MEDS: EPINASTINE OP SCH ×2 (07:58→19:55)
--- NOTE | 2017-09-10 09:19 | NUR ---
Pt resting in bed comfortably. A/O x4. Denies any issues. Sinus with PAC's and occasional A-fib on monitor. Rate controlled. Lungs dim throughout. Pulse ox 91% on RA. No respiratory distress noted. 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 Call vanessa within reach. Will continue to monitor.
[2017-09-10] MEDS ORDERED: METOPROLOL TARTRATE 25 MG TAB PO ONE (10:15)
--- NOTE | 2017-09-10 11:55 | NUR ---
A/ID: PT ASSESSMENT COMPLETED. PT IS AWAKE, ALERT AND ORIENTED. DENIES PAIN. IV INTACT. SR WITH PAC'S ON MONITOR CURRENTLY. FAMILY AT BEDSIDE. CALL GOMEZ WITHIN REACH.
[2017-09-10] MEDS: LEValbuterol HFA 15GM INHALER INH SCH ×4 (12:00→18:06)
--- NOTE | 2017-09-10 15:14 | Progress Note ---
Subjective Date of Service: Sep 10, 2017. Subjective Pt evaluation today including: conversation w/ patient, physical exam, lab review, conversation w/ lead consultant, review of inpatient medication list Pain: no pain PO Intake: adequate Voiding: no voiding problems patient doing well, sitting up in chair, no complaints still has shortness of breath on exertion, none at rest HR still high whenever he ambulates, jumped up to 120's today just walking to the bathroom BP has been stable, discussed increasing his metoprolol with him reviewed labs from previous day I/O negative 10 liters Review of Systems Constitutional: + weakness, + fatigue Respiratory: + dyspnea on exertion All Other Systems: Reviewed and Negative Medications Current Inpatient Medications Medications (Trade) Dose Ordered Sig/Krissy Route Start Time Stop Time Status Last Admin Dose Admin Acetaminophen (Tylenol Tab) 650 mg Q4H PRN PO 09/03/17 13:30 10/03/17 13:29 09/05/17 03:01 650 MG Aspirin (Ecotrin Tab) 81 mg QAM PO 09/04/17 09:00 10/04/17 08:59 09/10/17 07:56 81 MG Cyanocobalamin (Vitamin B-12 Tab) 500 mcg DAILY PO 09/04/17 09:00 10/04/17 08:59 09/10/17 07:56 500 MCG Non-Formulary Medication 1 ea BID OP 09/04/17 21:00 10/04/17 20:59 09/09/17 20:00 1 EA Amiodarone HCl (Cordarone Tab) 400 mg BID PO 09/05/17 21:00 10/05/17 20:59 09/10/17 07:56 400 MG Furosemide (Lasix Tab) 40 mg QAM PO 09/07/17 09:00 10/07/17 08:59 09/10/17 07:57 40 MG Warfarin Sodium (Coumadin Tab) 3 mg DAILY@16 PO 09/08/17 16:00 10/08/17 15:59 Future Hold 09/08/17 16:00 3 MG Spironolactone (Aldactone Tab) 25 mg QAM PO 09/09/17 09:00 10/07/17 08:59 09/10/17 07:55 25 MG Levalbuterol (Xopenex Hfa Inhaler) 2 puffs Q6 INH 09/08/17 12:00 10/08/17 11:59 09/09/17 18:02 2 PUFFS Metoprolol Tartrate (Lopressor Tab) 25 mg BID PO 09/10/17 21:00 10/09/17 20:59 Objective Vital Signs Date Time Temp Pulse Resp B/P (MAP) Pulse Ox O2 Delivery O2 Flow Rate FiO2 09/10/17 12:00 36.6 62 18 121/83 (96) 91 Room Air 09/10/17 12:00 Room Air 09/10/17 08:00 91 Room Air 09/10/17 08:00 36.7 72 18 151/84 (106) 90 Room Air 09/10/17 04:04 36.9 68 18 129/84 (99) 96 09/10/17 04:00 BiPAP 09/10/17 00:00 BiPAP 09/09/17 23:20 36.4 89 18 129/74 (92) 96 Room Air 89 BiPAP 09/09/17 23:14 74 97 30 09/09/17 20:00 Room Air 09/09/17 19:36 36.9 82 20 121/69 (86) 90 Room Air 09/09/17 16:00 90 Room Air 09/09/17 15:53 37.2 95 18 137/86 (103) 90 Room Air Physical Exam General Appearance: no apparent distress, + obese Eyes: normal inspection, EOMI, sclerae normal ENT: normal ENT inspection, hearing grossly normal, pharynx normal Neck: supple, no adenopathy, no JVD, trachea midline Respiratory/Chest: chest non-tender, lungs clear, normal breath sounds, no respiratory distress, no accessory muscle use Cardiovascular: no gallop, no JVD, no murmur, + tachycardia, + irregularly irregular Abdomen: normal bowel sounds, non tender, soft, no organomegaly Extremities: normal range of motion, non-tender, normal inspection, no pedal edema, no calf tenderness, pelvis stable Neurologic/Psychiatric: filter washer II-XII nml as tested, no motor/sensory deficits, alert, normal mood/affect, oriented x 3 Skin: normal color, warm/dry, no rash Laboratory Results Last 24 Hours Test 09/10/17 05:30 Prothrombin Time 53.9 SECONDS Prothromb Time International Ratio 5.3 Assessment and Plan 67 yo male with - Atrial fibrillation, new onset with episodes of RVR rates still not adequately controlled today on metoprolol 12.5mg BID and Amiodarone 400mg BID increase metoprolol to 25mg BID, had some issues with hypotension on admission but that has been resolved for several days INR still supratherapeutic, hold Coumadin today - Acute on chronic hypercapnic and hypoxemic respiratory failure/suspect undiagnosed COPD and REMBERTO/Obesity hypoventilation syndrome/Current smoker/ Moderate Pulm HTN tolerating BiPAP at night, will need set up at rehab/home follow up with sleep medicine, formal PFT, f/u with Dr. Velazco continue nebulizers - HTN/Acute newly diagnosed combined systolic and diastolic CHF/Pulm HTN/right- sided heart failure-likely secondary to his untreated severe REMBERTO and OHS, as well as possible COPD. Not likely to be ischemic, but may need ischemic eval at some point in the future. ECGs neg, serially neg troponins even under great cardiac stress seems unlikely to have significant CAD. continue Lasix 40mg PO daily, diuresing well, 10 liters negative continue aspirin continue metoprolol holding Lisinopril due to hypotension earlier in admission aldactone 25mg daily -Discussed fluid restriction, low sodium diet, and eventually should have referral to pulmonary rehabilitation and weight loss program in the future -Discussed abstinence from alcohol and smoking cessation-he has not committed to either at this time -Patient desires palliative care consultation to help establish goals of care as he is not keen on the lifestyle recommendations for CHF-Palliative has seen him MARÍA ELENA in the setting of chronic kidney disease unknown stage-creatinine increased to 1.66 after hypotensive episode, now returned to 1.01 resolved Secondary Polycythemia-hemoglobin is 15 at outside hospital, has received multiple phlebotomies in the past, but is likely secondary to smoking. Hgb here in 13-14 range -Follow CBC Prophylaxis-Heparin drip and Coumadin, follow INR Disposition-to [facility] once afib is better controlled Full code but does not desire prolonged life support if prognosis is very poor- palliative care consultation appreciated
--- NOTE | 2017-09-10 16:00 | NUR ---
A: NO ACUTE CHANGES TO PATIENT ASSESSMENT. ALERT AND ORIENTED. RESTING COMFORTABLY IN BED. AFLUTTER ON MONITOR. CALL GOMEZ WITHIN REACH.
--- NOTE | 2017-09-10 20:00 | NUR ---
A: Pt. is A&Ox4, denies any complaints. Telemetry intact showing NSR with PACs and atrial flutter at times. Denies CP or palpitations. Denies SOB or difficulty breathing at rest. Endorses SOB on exertion. Appears comfortable resting in bed at this time. Voiding in urinal without difficulty. See EMR for full head to toe assessment. Call vanessa within reach, all needs addressed and denies pain. Will continue to closely monitor.
[2017-09-11] VITALS (7 sets, daily range): BP systolic 125–145; BP diastolic 75–88; PULSE 58–73; TEMP 36.2–37; O2SAT 90–97
--- NOTE | 2017-09-11 | NUR ---
A: Pt. is sleeping at this time on bipap. Pt. was found at 2205p sleeping prior to bipap set up at 72% on RA. Respiratory therapist placed patient on 4 L NC and notified RN. Pt. is currently on ordered Bipap settings and tolerating well. VSS. Telemetry showing NSR with PACs in 70s. Will continue to closely monitor patient. See EMR for full head to toe assessment.
--- NOTE | 2017-09-11 04:00 | NUR ---
A: Assessment unchanged. Sleeping at this time with bipap on. Telemetry showing NSR with PACs, HR in 60s-70s. No CP or palpitations. Denies difficulty breathing on current bipap settings. See EMR for full head to toe assessment details. Call vanessa within close proximity. Will continue to closely monitor.
[2017-09-11] MEDS: LEValbuterol HFA 15GM INHALER INH SCH ×3 (06:12→12:21)
[2017-09-11] MEDS: EPINASTINE OP SCH (07:54)
[2017-09-11] MEDS: AMIODARONE 200 MG TAB PO SCH (07:55)
[2017-09-11] MEDS: ASPIRIN 81 MG ECTAB PO SCH (07:55)
[2017-09-11] MEDS: CYANOCOBALAMIN 500 MCG TAB (VIT B-12) PO SCH (07:55)
[2017-09-11] MEDS: METOPROLOL TARTRATE 25 MG TAB PO SCH (07:55)
[2017-09-11] MEDS: FUROSEMIDE 40 MG TAB PO SCH (07:56)
[2017-09-11] MEDS: SPIRONOLACTONE 25 MG TAB PO SCH (07:56)
--- NOTE | 2017-09-11 08:23 | NUR ---
Pt resting in bed comfortably. A/O x4. Denies any issues.Sinus with PAC's and Afib @ 100. Lungs dim throughout. Pulse ox low 90's on RA. 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 Call vanessa within reach. Will continue to monitor.
[2017-09-11 08:30] LABS: INR 4.8 (0.9-1.1)
[2017-09-11 08:47] LABS: CALCIUM 9.2 mg/dl (8.5-10.1); CREATININE 1.37 mg/dl (0.60-1.40); POTASSIUM 4.3 mmol/L (3.5-5.1)
--- NOTE | 2017-09-11 10:23 | NUR ---
Case Management: Pt. remains in room 230-2. He is from home where he lives alone and is independent with all ADL's. Pt. plan at d/c is for [facility] for short term rehab. He has been accepted pending bed availability at time of discharge. Case management to follow. Addendum: 09/11/17 at 1429 by Tatianna Reyes SERV Colin Finley at [facility], pt. is accepted and able to come today. Will make MD aware. Per nurse, pt. family to transport.
--- NOTE | 2017-09-11 12:31 | NUR ---
Pt resting in bed comfortably. A/O x4. Denies any issues. Sinus with PAC's on monitor. Lungs dim on RA. 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 Call vanessa within reach. Will continue to monitor.
[2017-09-11] MEDS ORDERED: LSX40 PO (15:23)
[2017-09-11] MEDS ORDERED: LISI-461 PO (15:23)
[2017-09-11] MEDS ORDERED: METO25TA56 PO (15:23)
[2017-09-11] MEDS ORDERED: CMD3 PO (15:23)
[2017-09-11] MEDS ORDERED: SPIR25TA6 PO (15:23)
[2017-09-11] MEDS ORDERED: Levalbuterol INH (15:23)
[2017-09-11] MEDS ORDERED: CRD200 PO (15:23)
--- NOTE | 2017-09-11 16:11 | Discharge Instructions ---
Discharge Instructions Date of Service Sep 11, 2017. Admission Reason for Admission: Atrial Flutter, Acute Hypoxic Respiratory Failure Discharge Discharge Diagnosis / Problem: Atrial flutter, acute hypoxic respiratory failure, acute heart failure Discharge Goals Goal(s): Improve function, Improve disease control Activity Recommendations Activity Level: Up Ad Roz Therapies: Physical Therapy, Occupational Therapy Lifting Limitations: none Exercise/Sports Limitations: as tolerated Shower/Bathe: no limitations . Additional Information Patient informed of condition: Yes Advance Directives: No DNR: No Level of Care: Acute Rehab Communicable Disease: No Prognosis: Stable Oxygen at (LPM): no Werner Catheter: No Instructions / Follow-Up Instructions / Follow-Up Medications: - LOPRESSOR: 12.5mg twice a day to control HR with atrial flutter - AMIODARONE: 400mg twice a day until seen by Dr. Burrows in the office - LISINOPRIL: dose decreased to 10mg daily, continue for systolic HF - SPIRONOLACTONE: 25mg daily, initiated for heart failure - COUMADIN: started for stroke prevention with atrial flutter - HCTZ: stopped - LASIX: 40mg PO daily, started for heart failure - LEVALBUTEROL: use as needed for dyspnea Atrial flutter: new diagnosis, found to be in RVR in his PCP office and was admitted to [facility] and then transferred to [facility] rates controlled on Lopressor 12.5mg BID and Amiodarone hesitant to increase Lopressor further because of conversion pauses of up to 3 seconds he can tolerated HR in the 100-110's according to cardiology needs to follow up with Dr. Burrows in the office INR has been elevated for several days after starting 5mg daily, last dose was on 09/08 INR is 4.8 today, would hold Coumadin until INR therapeutic and recommend starting 3mg daily instead of 5mg Acute systolic and diastolic heart failure: EF is 45% on echo, this is new diagnoses, may be in part due to tachycardia diuresed with Lasix 40mg PO daily, diuresed 10 liters of fluid, breathing well his weight is 107.6 kg today, this is his dry weight please weigh patient every day, notify physician or buyer if weight going up started on Lopressor, Lasix, Lisinopril and spironolactone needs to follow up with Dr. Burrows in 2-3 weeks Chronic hypercapnic failure, REMBERTO, obesity hypoventilation needs to use BiPAP, settings are 20/8 use everynight and when napping during the day should be able to qualify for home BiPAP with nocturnal desaturation study and pulmonary hypertension needs to follow up with Dr. Galo in 2-3 weeks for sleep study Possible COPD: needs to follow up with Dr. Velazco in 2 weeks for dedicated PFT h/o smoking, cigarettes removed from home FOLLOW UP - Dr. Burrows in two weeks, call to make appointment - Dr. Velazco in two weeks, call to make appointment - Dr. Galo in 2-3 weeks - PCP after discharged from rehab Current Hospital Diet Patient's current hospital diet: Low Sodium Diet (2gm Na) Discharge Diet Recommended Diet: Low Sodium Diet (2gm Na) Fluid Restriction: 1500 ml (6 cups) Pending Studies Studies pending at discharge: no Physician Orders On Transfer Weigh: daily Additional Orders: BMP next week and then weekly while at rehab daily INR until therapeutic, then under direction of physician POLST Discussion: Not Applicable Laboratory Results Hemoglobin A1c Test 09/04/17 09:39 Range/Units Estimated Average Glucose 123 mg/dl Hemoglobin A1c 5.9 H 4.5-5.6 % Medical Emergencies . Who to Call and When: Medical Emergencies: If at any time you feel your situation is an emergency, please call 911 immediately. . Non-Emergent Contact Non-Emergency issues call your: Primary Care Provider, Ceo & Board Director Call Non-Emergent contact if: you have any medication questions . . "Provider Documentation" section prepared by Neal Luo. . Core Measure Problem Core Measures: None [place] Drug Monitoring Program Search Results: no issues identified
--- NOTE | 2017-09-11 16:30 | NUR ---
PT DISCHARGED TO [facility] IN STABLE CONDITION. PT AND SON VERBALIZED UNDERSTANDING OF ALL DISCHARGE INSTRUCTIONS GIVEN.
--- NOTE | 2017-09-12 08:39 | Discharge Summary ---
Discharge Summary Date of Service Sep 11, 2017. Discharge Summary Admission Date: Sep 03, 2017 at 13:16 Discharge Date: Sep 11, 2017 Discharge Disposition: Rehab Principal Diagnosis: New onset atrial fibrillation with RVR Problems/Secondary Diagnoses: Acute systolic HF Acute diastolic HF Chronic hypercapnic respiratory failure HTN Possible COPD REMBERTO Obesity Tobacco abuse Procedures: Echocardiogram Consultations: Cardiology Pulmonology Medication Reconciliation New Medications: Lisinopril (Lisinopril) 10 Mg Tab 10 MG PO DAILY for 30 Days, #30 TABS 3 Refills Metoprolol Tartrate (Lopressor) (Lopressor) 25 Mg Tab 12.5 MG PO BID, #30 TAB 3 Refills Amiodarone HCl (Amiodarone HCl) 200 Mg Tab 400 MG PO BID, #120 TAB 3 Refills Furosemide (Furosemide) 40 Mg Tab 40 MG PO QAM, #30 TAB 3 Refills Spironolactone (Spironolactone) 25 Mg Tab 25 MG PO QAM, #30 TAB 3 Refills Warfarin Sod (Coumadin) 3 Mg Tab 3 MG PO DAILY@16, #30 TAB 3 Refills [Levalbuterol] () INH 2 PUFFS INH Q6, #1 INHALER 3 Refills Continued Medications: Aspirin (Aspirin Ec) 81 Mg Tab PO DAILY Cyanocobalamin (Vitamin B12 500MCG) 500 Mcg Tab 500 MCG PO DAILY, TAB Fish Oil ([place]-3) 1 Ea Cap 1 CAP PO DAILY, CAP Garlic (Garlic Oil 500) 500 Mg Cap PO DAILY Discontinued Medications: Hydrochlorothiazide (Hydrochlorothiazide) 12.5 Mg Tab 1 TAB PO DAILY for 30 Days, #30 TAB 5 Refills Lisinopril (Zestril) 20 Mg Tab 20 MG PO DAILY, TAB Metoprolol Tartrate (Lopressor) (Lopressor) 25 Mg Tab 1 TAB PO BID for 90 Days, #180 TAB 1 Refill Discharge Exam Patient feeling well, no breathing difficulties both at rest and while ambulating. No cough. No fever, vitals stable. Tolerating BiPAP at night, sleeping all night. Long discussion about plans for treating atrial fibrillation, heart failure, REMBERTO and COPD. Discussed sodium restriction, fluid restriction, the importance of weighing yourself every day. He voiced understanding of all the instructions. Answered all of his questions. He plans to stop smoking completely. Review of Systems: Constitutional: No fever, No chills, No sweats, No weight loss, No weakness , No fatigue, No problem reported Eyes: No worsening of vision, No eye pain, No redness, No discharge, No diplopia, No problem reported ENT: No hearing loss, No unusual epistaxis, No nasal symptoms, No sore throat, No tinnitus, No dental problems, No trouble swallowing, No problem reported Respiratory: No cough, No sputum, No wheezing, No shortness of breath, No dyspnea on exertion, No dyspnea at rest, No hemoptysis, No problem reported Cardiovascular: No chest pain, No orthopnea, No PND, No edema, No claudication, No palpitations, No problem reported Abdomen: No pain, No nausea, No vomiting, No diarrhea, No constipation, No GI bleeding, No problem reported Musculoskeletal: No joint pain, No muscle pain, No swelling, No calf pain, No problem reported Genitourinary - Male: No hematuria, No dysuria, No urinary frequency, No urinary urgency Neurologic: + weakness, No memory loss, No paralysis, No numbness/tingling, No vertigo, No balance problems, No problem reported Psychiatric: No depression symptoms, No anhedonism, No anxiety, No insomnia , No substance abuse, No problem reported Endocrine: No fatigue, No excessive thirst, No excessive urination, No problem reported Hematologic / Lymphatic: No abnormal bleeding/bruising, No clotting problems , No swollen lymph nodes, No night sweats, No problem reported Integumentary: No rash, No itch, No new/changing skin lesions, No color change, No bleeding, No problem reported Physical Exam: General Appearance: no apparent distress, + obese Eyes: normal inspection, EOMI, sclerae normal ENT: normal ENT inspection, hearing grossly normal, pharynx normal Neck: supple, no adenopathy, no JVD, trachea midline Respiratory/Chest: chest non-tender, lungs clear, normal breath sounds, no respiratory distress, no accessory muscle use Cardiovascular: no edema, no gallop, no JVD, no murmur, normal peripheral pulses, + irregularly irregular Abdomen / GI: normal bowel sounds, non tender, soft, no organomegaly Extremities: normal inspection, no calf tenderness, normal capillary refill , no pedal edema, normal range of motion, pelvis stable Neurologic/Psychiatric: 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 Burrows in the office INR elevated still at 4.5, he received Coumadin 5mg daily for several days, last dose was 09/08 5mg obviously too high of a dose, recommend holding Coumadin until INR therapeutic, start at 3mg daily and adjust accordingly - Acute on chronic hypercapnic and hypoxemic respiratory failure/suspect undiagnosed COPD and REMBERTO/Obesity hypoventilation syndrome/Current smoker/ Moderate Pulm HTN tolerating BiPAP at night at setting 20/8 per pulmonology for now he can continue BiPAP at rehab, pulmonary feels that he could get it approved via nocturnal desaturation study and pulmonary hypertension he needs a dedicated sleep study with Dr. Galo once discharged from rehab he also needs a close follow up appointment with Dr. Velazco with formal PFT to make diagnosis of COPD, has a h/o smoking continue Levalbuterol as needed, this was chosen - Acute newly diagnosed combined systolic and diastolic CHF/Pulm HTN/right- sided heart failure-likely secondary to his untreated severe REMBERTO and OHS, as well as possible COPD continue Lasix 40mg PO daily, diuresing well, 10 liters negative for the admission but urine output tapering off EF was 45% on initial echo, certainly could be due in part to afib with RVR will follow up with Dr. Burrows, will need repeat echo now that HR controlled continue aspirin continue metoprolol 12.5mg BID continue Lisinopril 10mg daily and Spironolactone 25mg daily Discussed fluid restriction, low sodium diet, and eventually should have referral to pulmonary rehabilitation and weight loss program in the future Discussed abstinence from alcohol and smoking cessation-he has not committed to either at this time MARÍA ELENA in the setting of chronic kidney disease unknown stage-creatinine increased to 1.66 after hypotensive episode resolved, Cr has been stable for several days Prophylaxis-Heparin drip and Coumadin, follow INR Disposition-to [facility] Total Time Spent: Greater than 30 minutes This includes examination of the patient, discharge planning, medication reconciliation, and communication with other providers. Discharge Instructions Please refer to the electronic Patient Visit Report (Discharge Instructions) for additional information. Follow-Up physician at [facility] Dr. Burrows in 2-[address] Velazco in 2-[address] Galo in 2-3 weeks for sleep study Additional Copies To [facility]; Arvind Burrows M.D.; Valentino Galo M.D.; Valerio Velazco MD
== END 2017-09-11 16:52 | DRG 286 ==
LOC: C.2T 13:16 → ENRESERV 16:36 → C.MSICU 17:27 → ENRESERV 09-04 19:27 → C.2T 09-04 20:49
PROVIDERS: ADMIT Family Medicine; ATTEND Internal Medicine
PROC: 4A023N6 Measurement of Cardiac Sampling and Pressure, Right Heart, Percutaneous Approach (ICD-10-PCS; principal; 2017-09-03 18:27)
DX: I48.0 Paroxysmal atrial fibrillation (principal); J96.21 Acute and chronic respiratory failure with hypoxia; J96.22 Acute and chronic respiratory failure with hypercapnia; I50.20 Unspecified systolic (congestive) heart failure; E66.2 Morbid (severe) obesity with alveolar hypoventilation; N17.9 Acute kidney failure, unspecified; I13.0 Hypertensive heart and chronic kidney disease with heart failure and stage 1 through stage 4 chronic kidney disease, or unspecified chronic kidney disease; D75.1 Secondary polycythemia; J44.9 Chronic obstructive pulmonary disease, unspecified; F17.210 Nicotine dependence, cigarettes, uncomplicated; N18.9 Chronic kidney disease, unspecified; Z51.5 Encounter for palliative care; Z79.82 Long term (current) use of aspirin; Z79.899 Other long term (current) drug therapy; Z68.35 Body mass index [BMI] 35.0-35.9, adult

== ENCOUNTER → 2017-09-18 | Outpatient (CLI) | payer OTHER ==
[~2017-09-18] MED LIST: ASPI81TA28 PO; CMD3 PO; CRD200 PO; CYAN500T13 PO; GARL1CAP PO; LISI-461 PO; LSX40 PO; Levalbuterol INH; METO25TA56 PO; OMEG10007 PO; SPR25 PO
--- NOTE | 2017-09-19 06:18 | SPLIT NIGHT TECHNICIAN REPORT ---
[facility] Split Night Polysomnogram - Leasing Consultant Report Study date: 09/18/2017 Referring Physician: Javier Hoffmann CRNP Name: MICHELE STEVE E Leasing Consultant: [facility] Date of : 1950 Height: 67 years, Height Sex: Male Weight: Age: 67 BMI: Medications: AMIODARONE 200 MG, ASPIRIN 81 MG, CYANOCOBALAMIN 500 MCG, FUROSEMIDE 40 MG, LEVALBUTEROL, LISINOPRIL 10 MG, METOPROLOL TARTRATE 25 MG, WARFARIN, ACETAMINOPHEN 500 MG, Patient History PATIENT HAS HISTORY OF ATRIAL FLUTTER, ACUTE HYPOXIC RESPIRATORY FAILURE AND ACUTRE HEART FAILURE. PATIENT CAME FROM [facility] AND WAS PUT ON BIPAP DURING HIS STAY. HE IS HERE TODAY FOR A SPLIT-STUDY AND TO BE PUT ON BIPAP. ESS= 8 RM 4 Parameters Monitored NPSG: E1-M2, E2-M1, Fp1-M2, Fp2-M1, F3-M2, F4-M2, F4-M1, C3-M2, C4-M2, C4-M1, O1-M2, O2-M2, O2-M1, T3-M2, T4-M1, P3-M2, P4-M1, CHIN1, CHIN2, HR, EKG, Legs, PFLOW, SNOR, FLOW, CFLOW, Tidal Volume, THOR, ABDO, SpO2, PLTH, CPRESS, ETCO2 Wave, ETCO2, pH SLEEP SUMMARY DATA DIAGNOSTIC TREATMENT Lights Out: 10:17:23 PM 12:56:23 AM Lights On: 12:49:23 AM 5:56:53 AM Total Recording Time (TRT): 152.5 min. 301.0 min. Total Sleep Time (TST): 136.5 min. 236.0 min. NREM Time: 93.5 min. 133.0 min. REM Time: 43.0 min. 103.0 min. Sleep Period Time (SPT): 148.5 min. 297.5 min. Sleep Efficiency (SE): 90 % 79 % Sleep Latency: 3.5 min. 0.5 min. Arousal Index: 6.2 23.4 PAP Treatment Levels: 4, 5, 6, 10/6, 11/7, 12/8, 13/9, 14/10, 15/11, 16/12, 17/13, 19/15, 20/16, 21/17, 22/18, 23/, /, /, , * Optimal Pressure(s) SLEEP STAGING DATA DIAGNOSTIC TREATMENT Duration (min) TST % Duration (min) TST % Stage Wake: 15.5 min. -- 65.0 min. -- WASO: 12.0 min. -- 61.5 min. -- NREM: 93.5 min. 68 % 133.0 min. 56 % Stage N1: 8.5 min. 6 % 26.5 min. 11 % Stage N2: 85.0 min. 62 % 106.5 min. 45 % Stage N3: 0.0 min. 0 % 0.0 min. 0 % REM: 43.0 min. 32 % 103.0 min. 44 % POSITIONAL DATA Event Count Index Event Count Index Supine: 4 110.9 174 44.2 Supine NREM: 4 110.9 128 57.7 Supine REM: N/A N/A 46 27 Non-Supine: 78 34.4 N/A N/A Non-Supine NREM: 40 25.6 N/A N/A Non-Supine REM: 38 53.0 N/A N/A AROUSAL SUMMARY DATA: Event Count Index Event Count Index Apnea Arousals: 2 7.0 36 32.0 Hypopnea Arousals: 3 1.3 11 2.8 Snore Arousals: 4 1.8 10 2.5 PLM Arousals: 0 0.0 0 0.0 Non-Specific Arousals: 2 0.9 40 10.2 Total Arousals: 14 6.2 92 23.4 MYOCLONUS (PLM) Event Count Index Event Count Index PLM: 7 3.1 3 0.8 PLM AROUSAL: 0 0.0 0 0.0 PLM W/O AROUSAL 7 3.1 3 0.8 PLM W/RESP EVENT 0 0.0 0 0.0 MYOCLONUS (PLM) Event Count Index Event Count Index LM: 2 25.1 48 12.2 LM AROUSAL: 2 0.9 3 0.8 LM W/O AROUSAL LM W/RESP EVENT LM NON SPECIFIC 55 24.2 41 10.4 HEART RATE DATA DIAGNOSTIC TREATMENT Sleep (bpm): 84 70 REM (bpm): 70 84 NREM (bpm): 78 87 Tachycardia Count: 0 0 Tachycardia Duration: 0.00 0 Bradycardia Count: 0 0 Bradycardia Duration: 0.00 0 DIAGNOSTIC PORTION TREATMENT PORTION RESPIRATORY DATA Event Count Index Event Count Index AHI: -- 35.6 -- 44.2 RDI: -- 36.0 -- 44 Obstructive Apnea: 15 6.6 44 11.2 Central Apnea: 1 0.4 26 6.6 Mixed Apnea: 0 0.0 56 14.2 Hypopnea: 65 28.6 48 12.2 RERA: 1 0.4 0 0.0 Total Apneas: 16 7.0 126 32.0 RESPIRATORY DATA REM NREM SLEEP REM NREM SLEEP Supine Position: Obstructive Apneas: N/A 0 0 19 25 44 Central Apneas: N/A 1 1 5 21 26 Mixed Apneas: N/A 0 0 10 46 56 Hypopneas: N/A 3 3 12 36 48 RERA N/A 0 0 0 0 0 Total Supine Events: N/A 4 4 46 128 174 Supine AHI: N/A 110.9 110.9 27 57.7 44.2 Supine RDI: N/A 110.9 110.9 26.8 57.7 44.2 REM NREM SLEEP REM NREM SLEEP Non-Supine Position: Obstructive Apneas: 13 2 15 N/A N/A N/A Central Apneas: 0 0 0 N/A N/A N/A Mixed Apneas: 0 0 0 N/A N/A N/A Hypopneas: 25 37 62 N/A N/A N/A RERA 0 1 1 N/A N/A N/A Total Supine Events: 38 40 78 N/A N/A N/A Supine AHI: 53.0 25.6 34.4 N/A N/A N/A Supine RDI: 53.0 26.3 34.8 N/A N/A N/A OXYGEN DESTAURATION DATA: Event Count Index Event Count Index REM Desaturations: 33 46.0 41 23.9 NREM Desaturations: 51 32.7 121 54.6 SNORE DATA DIAGNOSTIC TREATMENT Snore Time: 64.0 12:56:53 AM Snore TST%: 21 6 Snore Arousal Count: 4 10 Snore Arousal Index: 1.8 2.5 Desaturation Event Summary: Minimum %SpO2 Event Count Mean/Min/Max Duration(sec.) Desaturation Index % Time In Bed > 90 85 36.8 / 5.3 / 112.9 68.9 17.0 86 - 90 141 32.5 / 4.8 / 103.6 61.1 31.8 81 - 85 58 36.9 / 8.0 / 138.0 39.9 20.0 76 - 80 27 36.1 / 10.5 / 59.9 24.7 15.0 71 - 75 16 38.5 / 5.5 / 74.1 36.8 6.0 66 - 70 15 36.7 / 11.8 / 59.7 39.6 5.2 61 - 65 4 26.7 / 6.8 / 46.8 15.1 3.6 56 - 60 1 6.8 / 6.8 / 6.8 16.1 0.9 51 - 55 0 N/A 0.0 0.2 < 50 0 N/A 0.0 0.4 OXYGEN SATURATION DATA DIAGNOSTIC TREATMENT SpO2 Mean Sleep: 76 % 86 % SpO2 Mean REM: 70 % 84 % SpO2 Mean NREM: 78 % 87 % SpO2 Minimum Sleep: 31 % 50 % SpO2 Minimum REM: 31 % 50 % SpO2 Minimum NREM: 53 % 74 % Time Below 90% (TST): 132.2 160.5 Time Below 88% (TST): 130.6 118.3 Total REM NREM Awake <50% 1.6 min. 1.4 min. 0.0 min. 0.2 min. 51 - 60% 4.5 min. 3.8 min. 0.5 min. 0.2 min. 61 - 70% 38.6 min. 25.9 min. 12.4 min. 0.3 min. 71 - 80% 91.6 min. 32.7 min. 57.6 min. 1.3 min. 81 - 90% 225.7 min. 69.6 min. 123.2 min. 32.9 min. 91 - 100% 74.0 min. 11.9 min. 31.1 min. 31.0 min. Average 83 80 83 90 Minimum SpO2 31 31 53 40 Desaturation Event Index 35.5 30.4 45.6 19.5 # Desat. Events below 89% 256 69 166 21 Time(%) with Saturation below 89% 65.7 22.5 38.9 4.3 Time(min.) with Saturation below 89% 286.4 98.1 169.4 18.9 Recording Leasing Consultant Comments: Mr. Schreiber slept in the left and supine positions. PAC's noted. Leg movements noted. No bruxism noted. Snoring was noted and scored as a 2 on a scale of 1 through 5. (0=no snoring, 5=snoring loud enough to be heard through a closed door or down the cao way) At 12:49 am Mr. Schreiber has met specific Split-Night criteria during the diagnostic portion of this study. CPAP was initiated at +4 CMH2O up-titrated to an level of +6 CMH2O, and then switched to BIPAP due to centrals and patient comfort. I increased BIPAP for apneas and hypops and also added a rate of 14 which I also increased to 16 due to centrals and mixed apneas. The final setting was at a maxed out BIPAP ST pressure of 30/25 with a rate of 16 which nearly eliminated all respiratory events and snoring. A ResMed Mirage Quattro full face size medium mask was used during titration Mr. Schreiber awoke to use the restroom 1 time during the night. Mr. Schreiber stated I did not sleep as well as I do when I am in my own bed. Patient seemed to sleep best after 5am in REM supine sleep at a maxed out BIPAP ST pressure of 30/25 with a rate of 16. The final report will be interpreted and signed by a sleep physician. The completed physician report will then be placed in the patient medical record. Therapy Event: Therapy (cm H20) 0 4 5 6 10/6 11/7 12/8 Total Time at Pressure (min.) 152.0 5.7 5.2 16.2 29.6 10.0 9.2 TST at Pressure (min.) 136.5 5.2 2.7 1.1 18.7 10.0 9.2 # Periods 1 1 1 1 1 1 1 Sleep Onset (min.) 3.5 0.5 0.0 0.0 3.4 0.0 0.0 REM Onset (min.) 19.5 N/A N/A N/A 20.9 N/A N/A Sleep Efficiency % 89 91 52 7 63 100 100 Wakefulness (%) 10.2 8.8 48.0 93.0 36.8 0.0 0.0 Wakefulness (min.) 15.5 0.5 2.5 15.1 10.9 0.0 0.0 NREM 1 (%) 5.6 61.9 19.2 3.1 15.2 0.0 0.0 NREM 1 (min.) 8.5 3.5 1.0 0.5 4.5 0.0 0.0 NREM 2 (%) 55.9 29.3 32.8 3.9 37.9 100.0 100.0 NREM 2 (min.) 85.0 1.7 1.7 0.6 11.2 10.0 9.2 NREM 3 (%) 0.0 0.0 0.0 0.0 0.0 0.0 0.0 NREM 3 (min.) 0.0 0.0 0.0 0.0 0.0 0.0 0.0 REM (%) 28.3 0.0 0.0 0.0 10.1 0.0 0.0 REM (min.) 43.0 0.0 0.0 0.0 3.0 0.0 0.0 # Arousals 14 6 2 2 16 6 2 Arousal Index 6.2 69.8 44.3 106.1 51.3 36.0 13.0 # Snore 2,100 3 3 0 12 26 40 Snore Index 923.1 34.9 66.4 0.0 38.4 155.9 260.6 AHI 35.6 69.8 66.4 53.0 73.7 90.0 71.7 AHI Supine 110.9 69.8 66.4 53.0 73.7 90.0 71.7 AHI Non-Supine 34.4 N/A N/A N/A N/A N/A N/A NREM AHI 27.6 69.8 66.4 53.0 76.3 90.0 71.7 REM AHI 53.0 N/A N/A N/A 60.0 N/A N/A RDI 36.0 69.8 66.4 53.0 73.7 90.0 71.7 # Obstructive 15 0 0 0 1 1 0 # Central Ap 1 6 2 0 6 1 0 # Mixed 0 0 0 0 8 11 9 # Hypopneas 65 0 1 1 8 2 2 RERAS 1 0 0 0 0 0 0 Total Respiratory Events 82 6 3 1 23 15 11 Time Below SpO2 89.00% (min.) 131.5 2.5 0.3 0.4 13.9 8.4 7.7 Mean NREM SpO2 (%) 78 88 91 89 86 85 83 Mean REM SpO2 (%) 70 N/A N/A N/A 87 N/A N/A Mean Sleep SpO2 (%) 76 88 91 89 86 85 83 Min NREM SpO2 (%) 53 84 87 85 76 74 74 Min REM SpO2 (%) 31 N/A N/A N/A 80 N/A N/A Position Supine (min.) 2.2 5.2 2.7 1.1 18.7 10.0 9.2 Position Non-supine (min.) 134.3 0.0 0.0 0.0 0.0 0.0 0.0 LM Index Sleep 28.1 0.0 0.0 0.0 12.8 12.0 26.1 LM Index NREM 19.9 0.0 0.0 0.0 11.4 12.0 26.1 LM Index REM 46.0 N/A N/A N/A 20.0 N/A N/A Mean Heart Rate (bpm) 84 75 77 70 75 75 60 Min Heart Rate (bpm) 42 50 62 56 42 70 40 Therapy (cm H20) 28/05 28/06 1511 1612 1713 1915 20/16 Total Time at Pressure (min.) 10.8 13.5 7.5 7.5 15.6 13.2 16.2 TST at Pressure (min.) 10.8 13.5 7.5 7.5 15.6 11.7 16.2 # Periods 1 1 1 1 1 1 1 Sleep Onset (min.) 0.0 0.0 0.0 0.0 0.0 0.0 0.0 REM Onset (min.) N/A 1.2 0.0 0.0 0.0 0.0 N/A Sleep Efficiency % 100 100 100 100 100 88 100 Wakefulness (%) 0.0 0.0 0.0 0.0 0.0 11.4 0.0 Wakefulness (min.) 0.0 0.0 0.0 0.0 0.0 1.5 0.0 NREM 1 (%) 0.0 0.0 0.0 0.0 0.0 7.6 0.0 NREM 1 (min.) 0.0 0.0 0.0 0.0 0.0 1.0 0.0 NREM 2 (%) 100.0 9.0 0.0 0.0 0.0 31.2 100.0 NREM 2 (min.) 10.8 1.2 0.0 0.0 0.0 4.1 16.2 NREM 3 (%) 0.0 0.0 0.0 0.0 0.0 0.0 0.0 NREM 3 (min.) 0.0 0.0 0.0 0.0 0.0 0.0 0.0 REM (%) 0.0 91.0 100.0 100.0 100.0 49.8 0.0 REM (min.) 0.0 12.3 7.5 7.5 15.6 6.6 0.0 # Arousals 6 4 1 2 1 6 7 Arousal Index 33.2 17.8 8.0 15.9 3.8 30.8 25.8 # Snore 41 26 13 21 37 25 18 Snore Index 226.8 115.8 104.1 167.0 142.0 128.4 66.5 AHI 71.9 35.6 48.0 47.7 38.4 56.5 59.1 AHI Supine 71.9 35.6 48.0 47.7 38.4 56.5 59.1 AHI Non-Supine N/A N/A N/A N/A N/A N/A N/A NREM AHI 71.9 49.7 N/A N/A N/A 70.3 59.1 REM AHI N/A 34.3 48.0 47.7 38.4 45.7 N/A RDI 71.9 35.6 48.0 47.7 38.4 56.5 59.1 # Obstructive 4 4 4 3 7 0 1 # Central Ap 3 0 0 0 0 3 1 # Mixed 5 3 1 2 1 4 8 # Hypopneas 1 1 1 1 2 4 6 RERAS 0 0 0 0 0 0 0 Total Respiratory Events 13 8 6 6 10 11 16 Time Below SpO2 89.00% (min.) 9.0 12.8 7.5 7.0 13.8 8.7 9.7 Mean NREM SpO2 (%) 84 81 N/A N/A N/A 87 87 Mean REM SpO2 (%) N/A 74 75 79 80 86 N/A Mean Sleep SpO2 (%) 84 75 75 79 80 86 87 Min NREM SpO2 (%) 75 76 N/A N/A N/A 80 79 Min REM SpO2 (%) N/A 54 53 50 60 77 N/A Position Supine (min.) 10.8 13.5 7.5 7.5 15.6 11.7 16.2 Position Non-supine (min.) 0.0 0.0 0.0 0.0 0.0 0.0 0.0 LM Index Sleep 5.5 13.4 32.0 15.9 7.7 10.3 11.1 LM Index NREM 5.5 0.0 N/A N/A N/A 11.7 11.1 LM Index REM N/A 14.7 32.0 15.9 7.7 9.1 N/A Mean Heart Rate (bpm) 57 59 74 64 75 76 75 Min Heart Rate (bpm) 40 38 59 39 60 73 73 Therapy (cm H20) 17 22/18 23/19 25/ 27/ 29/25 30/25 Total Time at Pressure (min.) 17.2 5.0 19.5 6.4 33.0 3.9 55.2 TST at Pressure (min.) 15.2 5.0 17.0 4.9 9.5 3.9 50.7 # Periods 1 1 1 1 1 1 1 Sleep Onset (min.) 0.0 0.0 0.0 0.0 0.0 0.0 0.0 REM Onset (min.) N/A N/A N/A 4.0 0.0 0.0 0.2 Sleep Efficiency % 88 100 87 76 28 100 91 Wakefulness (%) 11.6 0.0 12.8 23.5 71.2 0.0 8.2 Wakefulness (min.) 2.0 0.0 2.5 1.5 23.5 0.0 4.5 NREM 1 (%) 11.6 10.0 7.7 31.4 12.1 12.9 10.0 NREM 1 (min.) 2.0 0.5 1.5 2.0 4.0 0.5 5.5 NREM 2 (%) 76.7 90.0 79.5 22.9 0.0 59.9 4.8 NREM 2 (min.) 13.2 4.5 15.5 1.5 0.0 2.3 2.7 NREM 3 (%) 0.0 0.0 0.0 0.0 0.0 0.0 0.0 NREM 3 (min.) 0.0 0.0 0.0 0.0 0.0 0.0 0.0 REM (%) 0.0 0.0 0.0 22.2 16.7 27.2 77.0 REM (min.) 0.0 0.0 0.0 1.4 5.5 1.1 42.5 # Arousals 6 3 8 4 3 3 4 Arousal Index 23.7 36.0 28.2 49.2 18.9 46.3 4.7 # Snore 21 2 9 0 1 3 2 Snore Index 83.1 24.0 31.8 0.0 6.3 46.3 2.4 AHI 47.5 60.0 45.9 73.8 44.1 30.8 0.0 AHI Supine 47.5 60.0 45.9 73.8 44.1 30.8 0.0 AHI Non-Supine N/A N/A N/A N/A N/A N/A N/A NREM AHI 47.5 60.0 45.9 52.0 15.0 42.4 0.0 REM AHI N/A N/A N/A 127.1 65.1 0.0 0.0 RDI 47.5 60.0 45.9 73.8 44.1 30.8 0.0 # Obstructive 4 4 5 2 2 2 0 # Central Ap 0 0 1 2 1 0 0 # Mixed 0 1 2 0 1 0 0 # Hypopneas 8 0 5 2 3 0 0 RERAS 0 0 0 0 0 0 0 Total Respiratory Events 12 5 13 6 7 2 0 Time Below SpO2 89.00% (min.) 8.9 3.9 9.0 1.5 2.8 2.1 6.3 Mean NREM SpO2 (%) 87 86 88 89 92 88 93 Mean REM SpO2 (%) N/A N/A N/A 92 89 90 90 Mean Sleep SpO2 (%) 87 86 88 90 90 88 90 Min NREM SpO2 (%) 79 79 79 83 87 86 87 Min REM SpO2 (%) N/A N/A N/A 88 81 87 86 Position Supine (min.) 15.2 5.0 17.0 4.9 9.5 3.9 50.7 Position Non-supine (min.) 0.0 0.0 0.0 0.0 0.0 0.0 0.0 LM Index Sleep 23.7 12.0 17.6 12.3 0.0 46.3 9.5 LM Index NREM 23.7 12.0 17.6 17.3 0.0 21.2 14.7 LM Index REM N/A N/A N/A 0.0 0.0 113.4 8.5 Mean Heart Rate (bpm) 73 74 75 76 64 64 68 Min Heart Rate (bpm) 40 67 41 63 30 37 35
--- NOTE | 2017-09-23 08:58 | Sleep Study ---
Sleep Study Report Date of Service: 09/18/2017 Sleep Study Report CLINICAL DATA: The patient is a 67-year-old male who was referred for a split night sleep study. He was recently hospitalized at [facility] with respiratory failure, congestive heart failure, and atrial fib flutter with rapid ventricular response rate. He has an Mchenry Sleepiness Scale score of 8. This was an in-lab split night study. The therapeutic portion of the study was done 1st with CPAP and then BiPAP. SLEEP ARCHITECTURE: During the diagnostic portion of the study the total sleep period was 148.5 minutes. The total sleep time was 136.5 minutes. The sleep efficiency was 90 percent. The sleep latency was 3.5 minutes. Sleep consisted of stage N1 6 percent, stage N2 62 percent, stage N3 0 percent, stage REM 32 percent. During the therapeutic portion of the study the total sleep period was 297.5 minutes. The total sleep time was 236 minutes. The sleep efficiency was 79 percent. Sleep latency was 0.5 minutes. Sleep consisted of stage N1 11 percent , stage N2 45 percent, stage N3 0 percent, stage REM 44 percent. AROUSAL DATA: During the diagnostic portion of the study the patient had 14 arousals including 2 apnea arousals, 3 hypopnea arousals, 4 snoring arousals, and 2 nonspecific arousals. The arousal index was 6.2. During the therapeutic portion of the study the patient had a total of 92 arousals including 36 apnea arousals, 11 hypopnea arousals, 10 snoring arousals , and 40 nonspecific arousals. The arousal index was 23.4. PLM DATA: During the diagnostic portion of the study the patient had a total of 7 periodic limb movements for an index of 3.1. There were 0 arousals associated with limb movements. During the therapeutic portion of the study the patient had a total of 3 periodic limb movements for a PLM index of 0.8. There were 0 arousals associated with limb movements. EKG: The underlying cardiac rhythm appeared to be normal sinus. At times he had frequent PACs. There were rare PVCs. There were episodes of what appeared to be atrial fibrillation. There was possible atrial flutter as well. The minimum heart rate seen was 40 and the maximum heart rate seen was 122. RESPIRATORY DATA: During the diagnostic portion of the study the patient had a total of 81 respiratory events including 15 obstructive apneas, 1 central apnea, and 65 hypopneas. Hypopneas were scored according to the 4 percent desaturation rule. The apnea-hypopnea index was 35.6. During the therapeutic portion of the study the patient had a total of 44 obstructive apneas, 26 central apneas, 56 mixed apneas, and 48 hypopneas for a total of 174 respiratory events. The apnea-hypopnea index was 44.2. At the final pressure of 30/25 the patient had 0 respiratory events for an apnea -hypopnea index of 0. He had a total sleep time at that pressure of 50.7. OXIMETRY DATA: During the diagnostic portion of the study the mean saturation was 76 percent. The minimum saturation was 31 percent. There was 130.6 minutes with saturations less than 88 percent. During the therapeutic portion of the study the mean saturation was 86 percent. The minimum saturation was 50 percent. There was 118.3 minutes with saturations less than 88 percent. 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 Leg movements noted. No bruxism noted. Snoring was noted and scored as a 2 on a scale of 1 through 5. At 12:49 a.m. the patient met specific split night criteria during the diagnostic portion of this study. CPAP was initiated at 4 centimeters and up titrated to a level of 6 centimeters and then switched to BiPAP due to centrals and patient comfort. BiPAP was increased for apneas and hypopneas and a rate of 16 was added due to centrals and mixed apneas. The final setting was at a maxed out BiPAP ST pressure of 30/25 with a rate of 16 which nearly eliminated all respiratory events and snoring. A [employer] Quattro full face size medium mask was used during the titration. IMPRESSIONS: 1. Severe obstructive sleep apnea 2. Cardiac arrhythmia COMMENTS: The patient was a difficult titration. He has severe sleep apnea. This was difficult to resolve except at extremely high BiPAP pressures. He did well over the final 1 hour of the study. It is unclear how well he would tolerate the very high pressures. It may be appropriate to set his pressures at a baseline of 25/20 and do frequent compliance and clinical evaluations and then increase if needed as indicated. RECOMMENDATIONS: 1. It is advised that the patient's BiPAP be started at 25/20 with a backup rate of [address] device. 2. Close clinical follow-up is required with compliance data. 3. Weight loss is advised in light of the elevation of body mass index. 4. If possible the patient should avoid sleeping in the supine position. 5. He does have a follow-up appointment set up for Sleep Medicine. Copies To 1: Moi Sharpe DO; Tahira Herrera, C.R.N.P.; Edward Tyler,SachiO.
== END | disposition home or self-care (01) ==
LOC: C.NEUR 20:00
PROVIDERS: ATTEND Nurse Practitioner Adult Health
DX: G47.33 Obstructive sleep apnea (adult) (pediatric) (principal)

== ENCOUNTER → 2017-09-21 | Outpatient (CLI) | payer OTHER ==
[2017-09-21 11:08] LABS: BLOOD UREA NITROGEN 45 mg/dl (7-18); CALCIUM 9.4 mg/dl (8.5-10.1); CARBON DIOXIDE 32 mmol/L (21-32); CREATININE 2.47 mg/dl (0.60-1.40); GLUCOSE 102 mg/dl (70-99); POTASSIUM 5.6 mmol/L (3.5-5.1); SODIUM 131 mmol/L (136-145)
== END | disposition home or self-care (01) ==
LOC: C.LABSPEC 09:47 → MERGE 10:34
PROVIDERS: ATTEND Internal Medicine
DX: I48.91 Unspecified atrial fibrillation (principal); N18.9 Chronic kidney disease, unspecified

== ENCOUNTER → 2017-09-24 | Outpatient (CLI) | payer OTHER ==
[2017-09-24 16:02] LABS: BLOOD UREA NITROGEN 44 mg/dl (7-18); CARBON DIOXIDE 29 mmol/L (21-32); CREATININE 1.97 mg/dl (0.60-1.40); GLUCOSE 95 mg/dl (70-99); POTASSIUM 4.8 mmol/L (3.5-5.1); SODIUM 129 mmol/L (136-145)
== END | disposition home or self-care (01) ==
LOC: C.LAB1850 15:00
PROVIDERS: ATTEND Internal Medicine Cardiovascular Disease
DX: I48.91 Unspecified atrial fibrillation (principal)

== ENCOUNTER → 2017-10-13 | Outpatient (CLI) | payer OTHER ==
[2017-10-13 12:32] LABS: INR 3.1 (0.9-1.1)
[2017-10-13 12:53] LABS: BLOOD UREA NITROGEN 28 mg/dl (7-18); CALCIUM 9.1 mg/dl (8.5-10.1); CARBON DIOXIDE 27 mmol/L (21-32); CREATININE 1.46 mg/dl (0.60-1.40); POTASSIUM 4.1 mmol/L (3.5-5.1); SODIUM 133 mmol/L (136-145)
[2017-10-13 15:20] LABS: GLUCOSE 98 mg/dl (70-99)
== END | disposition home or self-care (01) ==
LOC: C.LAB1850 11:33
PROVIDERS: ATTEND Physician Assistant
DX: N17.9 Acute kidney failure, unspecified (principal); I48.91 Unspecified atrial fibrillation

== ENCOUNTER → 2017-11-05 | Outpatient (CLI) | payer OTHER ==
[2017-11-05 12:39] LABS: BLOOD UREA NITROGEN 24 mg/dl (7-18); CALCIUM 9.1 mg/dl (8.5-10.1); CARBON DIOXIDE 30 mmol/L (21-32); CREATININE 1.54 mg/dl (0.60-1.40); GLUCOSE 89 mg/dl (70-99); POTASSIUM 4.4 mmol/L (3.5-5.1); SODIUM 135 mmol/L (136-145)
== END | disposition home or self-care (01) ==
LOC: C.LAB1850 11:07
PROVIDERS: ATTEND Family Medicine
DX: N28.9 Disorder of kidney and ureter, unspecified (principal)

== ENCOUNTER → 2017-11-11 | Outpatient (CLI) | payer OTHER ==
[2017-11-11 14:02] LABS: BLOOD UREA NITROGEN 19 mg/dl (7-18); CALCIUM 9.2 mg/dl (8.5-10.1); CARBON DIOXIDE 28 mmol/L (21-32); CREATININE 1.41 mg/dl (0.60-1.40); GLUCOSE 78 mg/dl (70-99); POTASSIUM 4.1 mmol/L (3.5-5.1); SODIUM 135 mmol/L (136-145)
== END | disposition home or self-care (01) ==
LOC: C.LAB1850 11:43
PROVIDERS: ATTEND Physician Assistant
DX: I48.91 Unspecified atrial fibrillation (principal)

== ENCOUNTER 2022-03-22 05:34 | Inpatient (IN) ==
--- NOTE | 2022-03-04 14:16 | PAT Medication Instructions ---
Medication Instructions Date of Service March 04, 2022 Home Medications Medication Instructions Recorded CPAP Machine #1 ea 06/11/19 CPAP Supplies #1 ea 09/06/19 metoprolol tartrate 25 mg tablet 25 mg PO BID #180 tab 12/15/19 apixaban 5 mg tablet (Eliquis) 5 mg PO BID #180 tab 03/26/21 CPAP Machine cyanocobalamin (vitamin B-12) 500 mcg tablet 500 mcg PO 3XWK furosemide 20 mg tablet 20 mg PO 3XWK metoprolol tartrate 25 mg tablet 25 mg PO BID apixaban 5 mg tablet (Eliquis) 5 mg PO BID aspirin 81 mg tablet,delayed release 81 mg PO HS lisinopril 40 mg tablet 40 mg PO QAM omega-3 fatty acids 1,000 mg capsule 1,000 mg PO QAM amiodarone 200 mg tablet 100 mg PO QAM doxazosin 1 mg tablet 1 mg PO QAM garlic 1,000 mg capsule 1,000 mg PO QAM Continue as directed cyanocobalamin (vitamin B-12) 500 mcg tablet 500 mcg PO 3XWK (do NOT take day of surgery) ASK your prescriber and surgeon apixaban 5 mg tablet (Eliquis) 5 mg PO BID aspirin 81 mg tablet,delayed release 81 mg PO HS STOP taking 2 weeks before surgery omega-3 fatty acids 1,000 mg capsule 1,000 mg PO QAM garlic 1,000 mg capsule 1,000 mg PO QAM DO NOT take the morning of surgery furosemide 20 mg tablet 20 mg PO 3XWK lisinopril 40 mg tablet 40 mg PO QAM Take morning of surgery With a small sip of water, OTHERWISE NOTHING TO EAT OR DRINK AFTER MIDNIGHT: metoprolol tartrate 25 mg tablet 25 mg PO BID amiodarone 200 mg tablet 100 mg PO QAM doxazosin 1 mg tablet 1 mg PO QAM Take evening before surgery metoprolol tartrate 25 mg tablet 25 mg PO BID Other Notes If you have any questions please call us at [phone] or [phone] or [phone] or [phone]
--- NOTE | 2022-03-07 09:37 | Anesthesiology Consultation ---
Date of Service March 07, 2022 Assessment & Plan (1) Encounter for pre-operative examination: Chart Review Chart Review: Acceptable Risk for Surgery (pending preop Covid testing results ) and Patient seen in Pre Admission Testing -Discussed cardiac history with Dr. Ozuna- patient can proceed as scheduled Per PAT appt on 03/07/22, patient denies any recent travel or large group activities. No known Covid positive exposures or Covid related symptoms. No known Covid infection in the past 90 days. Pt is vaccinated for Covid. Preop Covid testing scheduled 03/20/22 = will await results. Educated on importance of self quarantining, social distancing and wearing mask in public for the patient one week prior to surgery and after Covid testing done Pt last seen by cardio 12/10/21= seen for cardiology follow-up. Patient recently in the emergency room 12/01/2021 with dizziness. Evaluation was unremarkable although they did mention it might be due to the amiodarone. Patient continues to have symptomsmomentary episodes of head almazan although he does not feel like he is going to pass out. Only occurs occasionally not on a daily basis. Atrial fibrillationno known recurrencemay not be symptomatic but feel that the brief episodes of lightheadedness are probably not atrial fibrillation. Continue current approach at this time. Remains on low-dose amiodaroneno clear side effects. Does not feel lightheadedness is due to amiodarone toxicitywe will continue. HypertensionBP good today. Dizzinesspossible this represents a cardiac arrhythmia although atrial fibrillation would be unlikely. If symptoms worsenwe will set up recorder. Follow-up in 1 year. Teaching & Discussion Pre-Anesthesia Teaching/Discussion Notes: Instructed NPO after midnight before surgery,except medications with 15 cc of water. Medication instructions provided according to the PAT guidelines. History Surgery Operation Date: 03/22/22 07:15 Proposed Procedures p Left Thyroid Lobectomy with Frozen Section, Possible Total Thyroidectomy - Cristina Crenshaw MD Height/Weight Height: 5 ft 9 in Weight: 96.6 kg Allergies Allergy/AdvReac Type Severity Reaction Status Date / Time No Known Drug Allergies Allergy Verified 03/04/22 12:56 [place] Allergy Unknown Seasonal Uncoded 03/07/22 09:27 allergies - watery eyes and rhinits Medications Home Medications Medication Instructions Recorded Confirmed Last Taken CPAP Machine #1 ea 06/11/19 02/12/22 Unknown cyanocobalamin (vitamin B-12) 500 500 mcg PO 3XWK tab 06/11/19 03/04/22 12/01/21 mcg tablet furosemide 20 mg tablet 20 mg PO 3XWK tab 06/11/19 03/04/22 12/01/21 CPAP Supplies #1 ea 09/06/19 02/12/22 Unknown metoprolol tartrate 25 mg tablet 25 mg PO BID #180 tab 12/15/19 03/04/22 12/01/21 apixaban 5 mg tablet (Eliquis) 5 mg PO BID #180 tab 03/26/21 03/04/22 12/01/21 aspirin 81 mg tablet,delayed 81 mg PO HS 12/01/21 03/04/22 12/01/21 release lisinopril 40 mg tablet 40 mg PO QAM 12/01/21 03/04/22 12/01/21 omega-3 fatty acids 1,000 mg 1,000 mg PO QAM 12/01/21 03/04/22 12/01/21 capsule amiodarone 200 mg tablet 100 mg PO QAM 03/04/22 03/04/22 Unknown doxazosin 1 mg tablet 1 mg PO QAM 03/04/22 03/04/22 Unknown garlic 1,000 mg capsule 1,000 mg PO QAM 03/04/22 03/04/22 Unknown Past Medical History Medical History Atrial fibrillation Dx'ed [address] Burrows. No cardioversion On Eliquis - no issues per patient Atrial flutter CHF (congestive heart failure), NYHA class II Pt unsure EF 55-60% per 10/09/20 ECHO Chronic kidney disease COPD (chronic obstructive pulmonary disease) No inhalers. Dizziness Resolved- no recent issues Possibly secondary to dehydration Hx of polycythemia ~2019 --> followed with [facility] Hematology. Unknown cause. No current problems Hypertension Well controlled per patient Left thyroid nodule Obstructive sleep apnea syndrome in adult Cpap at night On anticoagulant therapy Pulmonary hypertension Moderate pulm HTN per 2017 RHC (done while pt admitted with new onset a fib)- "suspect mixed etiology left sided heart disease and lung disease/REMBERTO Hx of following with [facility] (Dr Sharpe). No longer follows with pulmonary No issues with 09/2020 ECHO Seasonal allergies Exercise / Class Metabolic Activity II 4-5 Yardwork/Stairs/Walk up hill (one flight of stairs - no chest pain or SOB ) Past Family History Family History Unknown Myocardial infarction Ovarian cancer Colon cancer Mother Myocardial infarction Sister Ovarian cancer Brother Colon cancer Other Cancer Hypertension No family history of adverse response to anesthesia No family history of bleeding disorder Past Surgical History Surgical History History of cardiac cath no stents History of colonoscopy S/P thyroid biopsy Past Anesthesia History No Hx of Anesthesia Complications and No Family Hx of Anesthesia Complications History of PONV No Hx of PONV and Hx of Motion Sickness Social History Smoking Status: Former smoker tobacco type: cigarettes Smoking cigarettes per day: 2012 Do You Dip or Chew Tobacco: No Hx Alcohol Use: Yes Alcohol type: beer alcohol intake frequency: a few times a week Hx Substance Use: Yes substance use type: marijuana Last Used Substance Other:: Recreationally 3x a year. Last had january 2022 Review of Systems Cough- chronic/stable secondary to post nasal drip (feels secondary to allergies) Patient denies chest pain, shortness of breath, dyspnea on exertion, wheezing, palpitations. No hx of seizures, stroke, IA. No hx of blood clots or blood transfusions Physical Exam Vital Signs VITALS BP 153/71 P 53 TEMP 98.2 SP02 95% RESP 16 Constitutional no acute distress ENMT Mouth: no TMJ clicking Thyromental Distance: > or= 3.5 Finger Breadths (3.5) Mallampati Class: III Top partial denture Missing bottom molars and side teeth Neck + short neck, + thick neck and + limited neck extension Respiratory normal respiratory effort; no respiratory distress Auscultation: lungs clear to auscultation bilaterally and + diminished lung sounds (generalized throughout ); no wheezes Cardiovascular Rate/Rhythm: regular rate and regular rhythm Heart Sounds: no murmur Vessels: no carotid bruit Heart sounds diminished throughout Musculoskeletal Spine: no pain with cervical ROM Extremities: extremities normal to inspection Psychiatric Orientation: alert Lab Results Anesthesia Preop Results Results Anesthesia Widget: WBC 5.79 K/uL (4.8-10.8) 03/07/22 Hgb 15.1 g/dL (14.0-18.0) 03/07/22 Hct 45.5 % (42-52) 03/07/22 Plt 200 K/uL (130-400) 03/07/22 Na 139 mmol/L (136-145) 03/07/22 K 4.7 mmol/L (3.5-5.1) 03/07/22 Cl 105 mmol/L (98-107) 03/07/22 CO2 30 mmol/L (21-32) 03/07/22 BUN 23 mg/dl (6-23) 03/07/22 Creat 1.39 mg/dl (0.6-1.4) 03/07/22 Glucose Level 99 mg/dl (70-99(Fasting)) 03/07/22 Testing Electrocardiogram Date: 12/01/21 SR with premature supraventricular complexes at 75bpm. Otherwise normal EKG per cardio. When compared to EKG from Sep 03, 2017- SR has replaced atrial fibrillation, nonspecific T wave abnormality no longer evident in lateral leads, QT has lengthened per cardio. Chest X-Ray Date: 03/07/22 Findings: + NAD Echocardiogram Date: 10/09/20 EF: 55-60% LV Function: normal RWMA: + none Other Findings: + LVH (mild/concentric ) and + diastolic dysfunction (Grade I ) Valvular Disease: + no significant valvular disease Cardiac Catheterization Date: 09/03/17 Right Heart Catheterization Summary: Elevated left-sided filling pressures/HFpEF (PAWP 20) Moderate pulmonary hypertensionsuspect mixed etiology of left-sided heart disease and lung disease/REMBERTO (WHO group 2/3) Right sided heart failure (RA 19) Mildly reduced cardiac output Recommendations: Diuresis as BP allows. Stable systemic BPshold of on inotropes for now. With diastolic heart failure/PAH/RV failure suspect patient tolerates AF+RVR poorly and recommend consideration of rhythm control strategy. Other Testing Neck CTA 12/01/21= No stenosis or dissection within the bilateral common carotid, cervical internal carotid or vertebral arteries. Large heterogeneous left lobe thyroid nodule which nearly replaces the left thyroid lobe with retrosternal extension. Although this may reflect a goiter, this represents a significant change since chest CT of September 03, 2017. Therefore, a neoplastic process cannot be completely excluded and follow-up nonemergent thyroid ultrasound is recommended. Head CTA 12/01/21= no intracranial aneurysm. No central vessel occlusion. Head CT 12/01/2021 = No acute intracranial hemorrhage, midline shift or mass effect is present. The ventricular system is unremarkable. The basal cisterns are patent. No extra-axial collections are present. There are no findings to suggest acute dural sinus thrombosis or acute territorial infarct. No significant calvarial abnormalities are present. Visualized portions of the sinuses and mastoid air cells are clear.
--- NOTE | 2022-03-21 11:44 | History & Physical Report ---
Date of Service March 21, 2022 Assessment & Plan (1) Left thyroid nodule: Plan: He has 7.5 cm firm left thyroid nodule. For left thyroid lobectomy with frozen section. May need total thyroidectomy. I explained the procedures to the patient with risks including risks to the recurrent laryngeal nerve sent to the parathyroid glands. He appears to understand and desires to proceed with surgery. History of Present Illness Chief Complaint: Left thyroid nodule Primary Care Provider: Edward Tyler DO This 72-year-old gentleman presented with progressively enlarging left thyroid nodule, increased to the present 7.5 cm in size. 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 He also has small right thyroid nodule. Allergies Allergy/AdvReac Type Severity Reaction Status Date / Time No Known Drug Allergies Allergy Verified 03/04/22 12:56 [place] Allergy Unknown Seasonal Uncoded 03/07/22 09:27 allergies - watery eyes and rhinits Home Medications Medication Instructions Recorded Confirmed Type CPAP Machine #1 ea 06/11/19 02/12/22 Rx cyanocobalamin (vitamin B-12) 500 500 mcg PO 3XWK tab 06/11/19 03/04/22 History mcg tablet furosemide 20 mg tablet 20 mg PO 3XWK tab 06/11/19 03/04/22 History CPAP Supplies #1 ea 09/06/19 02/12/22 Rx metoprolol tartrate 25 mg tablet 25 mg PO BID #180 tab 12/15/19 03/04/22 Rx apixaban 5 mg tablet (Eliquis) 5 mg PO BID #180 tab 03/26/21 03/04/22 Rx aspirin 81 mg tablet,delayed 81 mg PO HS 12/01/21 03/04/22 History release lisinopril 40 mg tablet 40 mg PO QAM 12/01/21 03/04/22 History omega-3 fatty acids 1,000 mg 1,000 mg PO QAM 12/01/21 03/04/22 History capsule amiodarone 200 mg tablet 100 mg PO QAM 03/04/22 03/04/22 History doxazosin 1 mg tablet 1 mg PO QAM 03/04/22 03/04/22 History garlic 1,000 mg capsule 1,000 mg PO QAM 03/04/22 03/04/22 History Past Med/Surg History Medical History Atrial fibrillation Dx'ed [address] Burrows. No cardioversion On Eliquis - no issues per patient Atrial flutter CHF (congestive heart failure), NYHA class II Pt unsure EF 55-60% per 10/09/20 ECHO Chronic kidney disease COPD (chronic obstructive pulmonary disease) No inhalers. Dizziness Resolved- no recent issues Possibly secondary to dehydration Hx of polycythemia ~2019 --> followed with [facility] Hematology. Unknown cause. No current problems Hypertension Well controlled per patient Left thyroid nodule Obstructive sleep apnea syndrome in adult Cpap at night On anticoagulant therapy Pulmonary hypertension Moderate pulm HTN per 2017 RHC (done while pt admitted with new onset a fib)- "suspect mixed etiology left sided heart disease and lung disease/REMBERTO Hx of following with [facility] (Dr Sharpe). No longer follows with pulmonary No issues with 09/2020 ECHO Seasonal allergies Surgical History History of cardiac cath no stents History of colonoscopy S/P thyroid biopsy Family History Unknown Myocardial infarction Ovarian cancer Colon cancer Mother Myocardial infarction Sister Ovarian cancer Brother Colon cancer Other Cancer Hypertension No family history of adverse response to anesthesia No family history of bleeding disorder Social History Smoking Status: Former smoker Tobacco Type: Cigarettes Cigarettes Per Day: 2011; Second Hand Exposure: Yes (hx); Hx Alcohol Use: Yes Alcohol type: beer Hx Substance Use: Yes Last Used Substance Other:: Recreationally 3x a year. Last had january 2022 Preferred Language: Danish Communication Ability: Effective Recreation Therapy Teacher Required: No Beliefs That Will Affect Care: None Current Living Situation: Alone Feels Safe at Home: Yes Assistive Devices: CPAP Physical Exam Constitutional: WD/WN, vitals as above Eyes: PERRL, conjunctivae normal, anicteric sclerae ENMT: external ear and nose normal, oropharynx normal Neck: Large firm poorly mobile left thyroid nodule with tracheal shift to the right. Right thyroid nodule is not palpable. Respiratory: normal respiratory effort, lungs clear to auscultation Cardiovascular: RRR, no murmur, no edema PG Care Time/CCT Total # of Minutes Spent Total Time Spent with Patient: Total time spent is greater than 50% in coordination of care (as documented) at patient's floor/unit and/or counseling patient: Coding Level of Care Code None Diagnoses Left thyroid nodule E04.1
[2022-03-22] MEDS ORDERED: ceFAZolin 2000MG 2,000 MG/15 ML SYR IV SCH (06:00)
[2022-03-22] MEDS ORDERED: LR 15ML/HR IV SCH (06:00)
[2022-03-22] MEDS ORDERED: PROPOFOL IV EMULSION 10 MG/ML 20 ML VIAL IV ONE ×2 (06:35→08:11)
[2022-03-22] MEDS ORDERED: DEXAMETHASONE SOD INJ 4 MG/ML VIAL ONE (06:35)
[2022-03-22] MEDS ORDERED: ONDANSETRON INJ 2 MG/ML 2 ML VIAL ONE (06:35)
[2022-03-22] MEDS ORDERED: MIDAZOLAM HCL 1 MG/ML 2ML VIAL ONE (06:35)
[2022-03-22] MEDS ORDERED: SUCCINYLCHOLINE 100MG/5ML SYR IV ONE (06:35)
[2022-03-22] MEDS ORDERED: fentaNYL citrate 100 MCG/2 ML VIAL ONE ×2 (06:35→08:35)
[2022-03-22] MEDS ORDERED: LIDOCAINE 2% 20 MG/ML 5 ML SYR IV ONE (06:35)
--- NOTE | 2022-03-22 06:47 | History & Physical Bridge Note ---
Date of Service March 22, 2022 History & Physical Bridge Note I have examined the patient, reviewed the History & Physical and in the interval since the performance of the History & Physical I have noted the following changes of clinical significance: no changes noted
[2022-03-22] MEDS ORDERED: BACITRACIN OINT 15 GM TUBE ONE (07:16)
[2022-03-22] MEDS ORDERED: LIDOCAINE 2%/EPINEPHRINE 1:100,000 20ML ONE (07:16)
[2022-03-22] MEDS ORDERED: HYDROmorphone INJ 1 MG/ML SYRINGE ONE (07:43)
[2022-03-22] MEDS ORDERED: ONDANSETRON INJ 2 MG/ML 2 ML VIAL IV PRN ×2 (07:52→10:47)
[2022-03-22] MEDS ORDERED: ePHEDrine sulfate 50 MG/ML AMP IV PRN (07:52)
[2022-03-22] MEDS ORDERED: ATROPINE SULFATE 0.1 MG/ML 10ML SYR IV PRN (07:52)
[2022-03-22] MEDS ORDERED: GLYCOPYRROLATE 0.2 MG/ML VIAL ONE (08:11)
[2022-03-22] MEDS ORDERED: SURGICEL ABSORB HEMOSTAT 2IN X 14IN TOP ONE (10:12)
[2022-03-22] MEDS ORDERED: oxyCODONE/ACETAMINOPHEN 5mg/325mg TAB PO PRN (10:47)
[2022-03-22] MEDS: fentaNYL citrate 100 MCG/2 ML VIAL IV PRN ×4 (11:22→11:45)
--- NOTE | 2022-03-22 11:24 | Operative Report ---
PG Post Operative Report Pre & Post Diagnosis Operation Date: 03/22/22 07:15 Pre-Op Diagnosis: Thyroid Nodule Post-Op Diagnosis: Thyroid Nodule I identified the patient and participated in the time-out.: Yes Procedure Operation Date: 03/22/22 07:15 Actual Procedures p Total Thyroidectomy(Not Applicable) - Cristina Crenshaw MD Surgeon Cristina Crenshaw MD General Scrap Worker Tam Estimated Blood Loss 350 Findings Consistent with Post-Op Diagnosis 7.5 cm substernal extension left thyroid nodule Specimens Total thyroid Drains Zach-Hamlin Anesthesia Type General Complications None Description of Procedure He was brought to the operating room, properly identified, prepped with ChloraPrep and draped in the usual sterile manner after general endotracheal anesthesia. Nims nerve monitoring was placed and used for the entire procedure. The incision was marked and injected with 2% Xylocaine with 1 20,000 strength epinephrine. Incision was made using the #10 blade through the skin, subcutaneous layer, and the platysma layer. Superior and inferior skin flaps were elevated up to the hyoid superiorly and down to the sternum inferiorly. Midline dissection was performed. Bleeders were controlled using the Bovie, the bipolar cautery, the harmonic scalpel, and also silk ties. Midline dissection was performed however the mass was very large therefore the strap muscles were transected on the left side including a portion of the sternocleidomastoid on the left side to allow access. Dissection was started superiorly isolating this superior thyroidal artery and vein which were clamped divided and tied using 2-0 silk ties. Middle thyroidal vein was identified, also clamped and divided and tied using silk ties. Dissection was continued substernally which was very difficult and took a rather long amount of time for dissection. Finally due to the difficulty dissecting inferiorly midline dissection was performed transecting the isthmus. Suspensory ligament of Clemons was identified and divided in layers. Recurrent laryngeal nerve was identified and preserved using the Nims monitor. This was traced inferiorly and laterally away from the thyroid gland. Further dissection performed to free the thyroid from the trachea which was adherent to the trachea with significant amount of scarring. Layer by layer dissection was performed and then the inferior pole was retracted upward. Inferior thyroidal veins and inferior thyroidal artery were clamped divided and tied using 2-0 silk suture ligatures inferiorly. At least the inferior parathyroid was preserved. 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 There was another nodule at the inferior pole of the right thyroid therefore right thyroidectomy was performed. Again the strap muscles were dissected away from the thyroid capsule. Superior pole vessels were identified clamped divided and suture ligated with 2-0 silk. Middle thyroidal vein was similarly ligated. The Nims monitor was used and the recurrent laryngeal nerve was found underneath the Clemons's ligament. Further dissection was then performed to free the Clemons's ligament from the trachea. Inferior pole dissection was then performed freeing the inferior thyroidal arteries and veins which were also tied and suture-ligated in this manner the total thyroidectomy was completed. Copious amounts irrigation was used. Bleede rs were controlled using silk ties and the bipolar cautery. Nims monitor noted action potentials on both sides of the neck, both recurrent laryngeal nerves. Zach-Hamlin drain was placed exiting in the suprasternal area. The left strap muscles in the sternocleidal muscle was reapproximated with 3-0 Vicryl sutures. Midline strap muscles were approximated with 3-0 Vicryl sutures. Platysma and subcutaneous layer with closed using 4-0 Vicryl sutures. The skin was closed with skin tesha. Light pressure dressing was placed. The drain was sewn in place. He tolerated the procedure well and was taken recovery area in satisfactory condition. Dr. Turcios stayed and assisted during the entire procedure. I attest to the content of the Intraoperative Record and any orders documented therein. Any exceptions are noted below.
--- NOTE | 2022-03-22 11:31 | Anesthesiology Progress Note ---
Date of Service March 22, 2022 Anesthesia Post Procedure Vital Signs Vital Signs: Temp Pulse Pulse Resp BP Pulse Ox 03/22/22 11:25 62 10 L 152/85 H 94 03/22/22 11:15 57 L 15 157/78 H 99 03/22/22 11:05 59 L 12 167/84 H 99 03/22/22 10:57 97.0 F L 57 L 16 165/87 H 98 03/22/22 05:55 98.1 F 62 22 155/92 H 94 Pain Intensity Neck: Pain Intensity: 5 Transfer of Care Handoff Completed per policy Notes Mental Status: alert / awake / arousable and participated in evaluation Patient Amnestic to Procedure: Yes Nausea / Vomiting: adequately controlled Pain: adequately controlled Airway Patency, RR, SpO2: stable & adequate BP & HR: stable & adequate Hydration State: stable & adequate Anesthetic Complications: no major complications apparent and Pt Satisfied with anesthetic care
[2022-03-22] MEDS: LACTATED RINGER'S 1,000 ML IV SCH ×2 (13:03→21:48)
[2022-03-22] MEDS: METOPROLOL TARTRATE 25 MG TAB PO SCH (20:30)
[2022-03-23] MEDS: LACTATED RINGER'S 1,000 ML IV SCH (06:43)
[2022-03-23] MEDS: METOPROLOL TARTRATE 25 MG TAB PO SCH (08:23)
[2022-03-23] MEDS ORDERED: COUGH DROP (SUGAR FREE) LOZ 24 LOZ/1 BOX BUCCAL ONE (08:25)
--- NOTE | 2022-03-23 08:55 | Discharge Summary ---
Date of Service March 23, 2022 Admission HPI Per Admitting Provider This 72-year-old gentleman presented with progressively enlarging left thyroid nodule, increased to the present 7.5 cm in size. 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 He also has small right thyroid nodule. Admission Exam (Per Admitting) Constitutional WD/WN, vitals as above Eyes PERRL, conjunctivae normal, anicteric sclerae ENMT external ear and nose normal, oropharynx normal Neck Zach-Hamlin drain in place. No sign of hematoma. Dressings dry. Respiratory normal respiratory effort, lungs clear to auscultation Cardiovascular RRR, no murmur, no edema Discharge Data Procedures Performed Operation Date: 03/22/22 07:15 Actual Procedures p Total Thyroidectomy(Not Applicable) - Cristina Crenshaw MD Hospital Course (1) Left thyroid nodule: He has 7.3 cm nodule. Admitted for left thyroid lobectomy. Very large and dense. Frozen section showed abundant Hurthle cells. 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 Nerve monitor showed both recurrent nerves to be intact with action potentials at the end of the procedure. Voice remains good. No trouble eating or swallowing. Calcium was 8.7, normal. He did very well postop. Drainage is subsiding. Desires to go home. Will discharge. For removal of drain in the office on Friday. Return to office Friday for removal of the drain.
[2022-03-23] MEDS ORDERED: AMIODARONE 200 MG TAB PO SCH (09:00)
[2022-03-23] MEDS ORDERED: DOXAZOSIN MESYLATE 1 MG TAB PO SCH (09:00)
[2022-03-23] MEDS ORDERED: lisinopril 40 MG TAB PO SCH (09:00)
== END 2022-03-23 11:40 | disposition home or self-care (01) | DRG 626 ==
LOC: ASU 05:34 → 3N 11:12 → OBSVTOIN 11:12 → INTOOBSV 11:12